=== PATIENT | female | born 1940 | race Caucasian/White ===

== ENCOUNTER 2021-01-27 10:31 | Outpatient (REF) | payer MEDICARE, BC, SELFPAY ==
--- NOTE | 2021-01-27 12:22 | MHC.AU.MED ---
Medical Clearance for Hearing Instrumentation Date: 01/27/21 Patient Name: PETER MARIE Date of : 1940 Primary Care Provider: Referring Provider: Shakir Rapp MD We have seen your patient on 01/27/21 and have determined that they are a candidate for amplification (See accompanying report). Specifically, they would benefit from: Hearing aid use in both ears There is a statute that addresses Medical Evaluation Requirements prior to fitting a patient with a hearing aid. According to [place] statute 265 CMR:6.03(1), (a) General. Except as provided in 265 CMR 6.03(1)(b), a hearing therapy director shall not sell a hearing aid unless the prospective user has presented to the hearing therapy director a written statement signed by a licensed physician that states that the patient's hearing loss has been medically evaluated and the patient may be considered a candidate for a hearing aid. The medical evaluation must have taken place within the preceding six months. Please note: Due to the [place] Statute referenced above, we cannot accept a signature other than that of a licensed physician. ELECTROLYSIS INVESTIGATOR and PA signatures cannot be accepted. I am in agreement with the above recommendation. There is no medical contraindication for hearing instrumentation. Physician Signature Date Physician Name (Printed)
--- NOTE | 2021-02-01 12:53 | MHC.AU.ANO ---
Adult Audiological Evaluation Date of Visit: 01/27/21 Human Resources Executive Assistant Used: Not Applicable Reason for Appointment: Audiologic evaluation due to increased hearing problems and difficulty understanding speech. Does patient feel they have a hearing loss?: Yes If Yes, Which Ear?: Both Ears When Was Hearing Difficulty First Noticed?: Approximately 3 years ago Has hearing been tested previously?: Yes Previous Hearing Test Results: [facility] - Results are not available for review Hearing Handicap Inventory: HHIE SCORE: 32 Based on HHIE score, patient has: Severe perceived hearing handicap Ear History: Ear used on the phone: Right Ear History of occupational noise exposure?: No Medical History: Medical History: Lung Embolism - October 2020 Cause unknown; Tobacco Use, Vascular Problems Medication List: Warfarin, Pravastatin, Citalapram, Trazadone Otoscopy: Right Ear: Mostly occluding cerumen Left Ear: Unremarkable Tympanometry: Tympanometry performed due to: To assess integrity of the middle ear system Right Ear: Reduced Middle Ear Compliance (Type As) Left Ear: Normal Middle Ear System (Type A) Otoacoustic Emissions Right Ear Results: Not performed at today's visit. Left Ear Results: Not performed at today's visit. Hearing Evaluation: Transducer(s) Used: Insert Earphones Bone Conduction Method: Conventional Audiometry Stimuli Used: Pure Tones Right Ear: Description of Hearing: Borderline normal low frequency, sloping to moderately-severe high frequency sensorineural hearing loss Left Ear: Description of Hearing: Mild low frequency, sloping to moderately-severe high frequency sensorineural hearing loss Speech Recognition Threshold (SRT): Method Used: Monitored Live Voice Stimuli Used: Spondee Words Right Ear: 25 dB HL Left Ear: 25 dB HL Word Discrimination: Method: Recorded Lists Word Lists Used: NU-6 Right Ear: 96% at 65 dB HL Left Ear: 76% at 65 dB HL 92% at 70 dB HL QuickSIN: Binaural Quick SIN Test: 12 dB SNR Loss which suggests Jayna experiences a moderate degree of difficulty understanding speech with increasing levels of background noise in this controlled test environment. Interpretation of Results: With this permanent moderately-severe high frequency hearing loss, Jayna is not able to hear important consonant sounds of speech which helps differentiate similar sounding words and cannot filter out background sounds. Recommendations: Follow-up with physician for cerumen removal. Trial with amplification is recommended. Medical clearance from a physician is required before fitting. Hearing Aid Evaluation has been scheduled for 02/04/2021 after cerumen removal has been completed Audiological re-evaluation in one year. Will send a reminder card. Diagnosis: Primary Diagnosis: H90.3 Bilateral Sensorineural Hearing Loss Services Performed: Comprehensive Audiological Evaluation (CPT 78381) Tympanometry (CPT 14876) Signature: Provider: Jay Latham, SHILOH-A
== END 2021-01-27 10:32 | disposition home or self-care (01) ==
LOC: HO.SH 10:31
PROVIDERS: Visit Provider Pediatrics
DX: H90.3 Sensorineural hearing loss, bilateral (principal)
CPT/HCPCS: 92557; 92567

== ENCOUNTER 2021-02-04 09:47 | Outpatient (REF) | payer SELFPAY ==
--- NOTE | 2021-02-04 13:25 | MHC.AU.HAS ---
Hearing Aid Evaluation Date of Visit: 02/04/21 M1 Armor Crewman Used: Not Applicable Historical Information: Description of Hearing: Bilateral borderline normal to mild low frequency hearing loss dropping to a moderately-severe sensorineural hearing loss with binaural Quick SIN Test indicating difficulty understanding speech in noise. Current personal amplification information, if applicable: None Summary: Discussed appropriate hearing aid styles and levels of technology noting the premium technology would likely benefit her/facilitate communication the most given the Quick SIN results. Also discussed realistic expectations and the need to wear aids every day all day for best benefit. Hearing Aid Prescription: Based on the individual?s shared listening needs, communication environments, dexterity, desire for connectivity, and personal preferences, the following prescription for amplification has been made: Right ear: Public Relations Sales Marketing: PhonBirst Model: Melodigrameo P 90-R Battery Size: Rechargeable Color: Silver Mcrae Internal Communications Manager: #2 Medium Type of Dome: Open or Vented Left ear: Left ear prescription to be same as Right Hearing Aid above: Public Relations Sales Marketing: Phonak Model: Audeo P 90-R Battery Size: Rechargeable Color: Silver Mcrae Internal Communications Manager: #2 Medium Type of Dome: Open or Vented Accessories/Assistive Technology Recommended: PROMO Partner [facility] Plan of Care: Patient wishes to purchase hearing aids as prescribed Action Taken/Action Needed: Medical Clearance received from PCP Hearing Fitting to be scheduled when materials arrive Primary Diagnosis: H90.3 Bilateral Sensorineural Hearing Loss Signature: Provider: Jay Latham, CCC-A
== END 2021-02-04 09:48 | disposition home or self-care (01) ==
LOC: HO.HAP 09:47
PROVIDERS: Visit Provider Pediatrics
DX: Z46.1 Encounter for fitting and adjustment of hearing aid (principal); H90.3 Sensorineural hearing loss, bilateral
CPT/HCPCS: 92591

== ENCOUNTER 2021-02-21 09:47 | Outpatient (REF) | payer SELFPAY | END 2021-02-21 09:48 | disposition home or self-care (01) | LOC: HO.HAP 09:47 | PROVIDERS: Visit Provider Pediatrics | DX: Z46.1 Encounter for fitting and adjustment of hearing aid (principal); H90.3 Sensorineural hearing loss, bilateral | CPT/HCPCS: V5261; V5299 ==

== ENCOUNTER 2021-03-15 11:28 | Outpatient (REF) | payer SELFPAY | END 2021-03-15 11:29 | disposition home or self-care (01) | LOC: HO.HAP 11:28 | PROVIDERS: Visit Provider Pediatrics | DX: Z13.89 Encounter for screening for other disorder (principal) ==

== ENCOUNTER 2022-03-08 14:16 | Outpatient (REF) | payer MEDICARE, BC, SELFPAY ==
--- NOTE | 2022-04-11 08:45 | MHC.AU.AHA ---
Adult Audiological Evaluation Date of Visit: 03/08/22 Fire Observer Used: Not Applicable Reason for Appointment: Audiologic re-evaluation to determine possible change in hearing ability. Jayna has a history of bilateral hearing loss and uses binaural hearing aids. Previous Hearing Test Results: 01/27/2021 [facility] Borderline normal to mild hearing loss thresholds at 250 and 500 Hz, dropping to a moderately-severe high frequency sensorineural hearing loss bilaterally with 96% speech understanding for the right ear and 76% for the left ear. Medical History: Medical History: Tobacco Use, Vascular Problems, Lung Embolism - October 2020 Cause unknown Medication List: Warfarin, Pravastatin, Citalapram, Trazadone, Hydrochlorothyazide, Diphenoxylate, Amlodipine Hearing Instrument History- Right Ear: Distributing Clerk: Jaunt Model: IXI-Playeo P 90-R Serial Number: [id number] Battery Size: Rechargeable Repair Warranty: 05/08/2024 Dispensed By: [facility] Date of Fittin02/21/2021 Hearing Instrument History- Left Ear: Distributing Clerk: [employer]ak Model: IXI-Playeo P 90-R Serial Number: [id number] Battery Size: Rechargeable Warranty: 05/08/2024 Dispensed By: [facility] Date of Fittin02/21/2021 Otoscopy: Right Ear: Unremarkable Left Ear: Unremarkable Tympanometry: Tympanometry performed due to: Did not test as previous test indicated normal middle ear function Hearing Evaluation: Transducer(s) Used: Insert Earphones Method: Conventional Audiometry Stimuli Used: Pure Tones Right Ear: Description of Hearing: Borderline normal hearing levels at 250 and 500 Hz, sloping to a moderately-severe high frequency sensorineural hearing loss Left Ear: Description of Hearing: Mild sloping to severe sensorineural hearing loss Speech Recognition Threshold (SRT): Method Used: Monitored Live Voice Stimuli Used: Spondee Words Right Ear: 25 dB HL Left Ear: 30 dB HL Word Discrimination: Method: Recorded Lists Word Lists Used: NU-6 Right Ear: 88% at 65 dB HL 92% at 70 dB HL Left Ear: 72% at 70 dB HL 84% at 75 dB HL Comparison: Compared to most recent evaluation: A slight decrease in hearing thresholds are noted for both ears. Recommendations: Hearing aid maintenance performed today. Hearing aid(s) reprogrammed with updated test results. Audiological re-evaluation in one year. Will send a reminder card. Diagnosis: Primary Diagnosis: H90.3 Bilateral Sensorineural Hearing Loss Services Performed: Pure Tone- Air (CPT 86527) Speech Audiometry Threshold, with Speech Recognition (CPT 47176) Signature: Provider: Jya Latham, CCC-A
== END 2022-03-08 14:17 | disposition home or self-care (01) ==
LOC: HO.SH 14:16
PROVIDERS: Visit Provider Pediatrics
DX: Z01.118 Encounter for examination of ears and hearing with other abnormal findings (principal); H90.3 Sensorineural hearing loss, bilateral
CPT/HCPCS: 92552; 92556

== ENCOUNTER 2023-10-08 13:20 | Outpatient (REF) | payer SELFPAY ==
--- NOTE | 2023-10-09 08:18 | MHC.AU.HA3 ---
Hearing Instrument Follow-Up- Binaural Date of Visit: 10/08/23 Right Ear: Cristopher, Model, Color, Serial Number: [id number] Health Education Aide Repair Warranty: 05/08/2024 Health Education Aide Loss and Damage Warranty: [facility] Service Plan: Battery Size: Rechargeable Development Spec/Slim Tube: #2 Medium 5.0 Earmold/Dome/CShell/SlimTip: Type of Wax Guard: Cerustop Dispensed By: [facility] Date of Fittin02/21/2021 Left Ear: Make, Model, Color, Serial Number: [id number] Health Education Aide Repair Warranty: 05/08/2024 Health Education Aide Loss and Damage Warranty: [facility] Service Plan: Battery Size: Rechargeable Development Spec/Slim Tube: #2 Medium 5.0 Earmold/Dome/CShell/SlimTip: Type of Wax Guard: Cerustop Dispensed By: [facility] Date of Fittin02/21/2021 Follow-Up Summary: Jayna reports her right aid is not charging as of this morning. The light does not turn on when it goes into either side of the lead mechanic, will not charge in our stock lead mechanic either. Reset with long press & hold, charging fine after. Cleaned both aids and changed to 5.0 receivers as she struggles with CeruShield. Listening check ok. Dispensed 10 domes. Recommendations: Recommendations: Hearing instrument follow-up or maintenance as needed. Diagnosis Code(s): Primary Diagnosis: H90.3 Bilateral Sensorineural Hearing Loss Signature: Provider: Jay Bonilla, [facility]
== END 2023-10-08 13:21 | disposition home or self-care (01) ==
LOC: HO.HAP 13:20
PROVIDERS: Visit Provider Pediatrics
DX: Z46.1 Encounter for fitting and adjustment of hearing aid (principal); H90.3 Sensorineural hearing loss, bilateral
CPT/HCPCS: V5267

== ENCOUNTER 2024-11-10 12:44 | Outpatient (REF) | payer MEDICARE, BC, SELFPAY ==
--- OUTSIDE RECORDS SUMMARY | 2024-11-10 14:51 | XMS_ITS | Continuity of Care Document ---
Author Organization [facility] Address [address] [place] [address]- Care Team Providers Care Decorating Machine Tender Name Role Phone Shakir Rapp MD Primary Care Physician [phone] [id number] Date(s): 08/12/24 - 10/15/[address] [address] Discharge Disposition: A-D/C Home Attending Physician: Lloyd Shah MD Admitting Physician: Lloyd Shah MD Referring Physician: Shakir Rapp MD Encounter Type: Disch Recurring OP Allergies, Adverse Reactions, Alerts Substance Criticality Severity Reaction Reaction Severity Status Adhesive Bandage blisters Act irma sulfa drugs insomnia tching Active Medications amLODIPine 5 mg oral tablet 5 mg, 1, tablet, By Mouth, Daily, # 90 tablet, Refills 0, Maintenance, 08/15/24 12:16:00 PM EST, Partial fill upon patient request if the prescription is for a schedule II opioid drug. Start Date: 08/15/24 Status: Ordered Quantity: 90.0 Unit: tablet Repeat number: 1 citalopram 10 mg oral tablet 10 mg, 1, tablet, By Mouth, Daily in AM, # 30 tablet, Refills 0, Maintenance, 06/25/18 10:50:57 AM EDT Start Date: 06/25/18 Status: Ordered Quantity: 30.0 Unit: tablet Repeat number: 1 hydroCHLOROthiazide 12.5 mg oral capsule 1 capsule = 12.5 mg, By Mouth, Daily, # 30 capsule, 0 Refills, Maintenance, 08/15/24 12:16:00 PM EST, Capsule, Partial fill upon patient request if the prescription is for a schedule II opioid drug. Start Date: 08/15/24 Status: Ordered Quantity: 30.0 Unit: capsule Repeat number: 1 omeprazole 20 mg oral delayed release tablet 1 tablet = 20 mg, By Mouth, Daily, before a meal, # 90 tablet, 0 Refills, Maintenance, 08/15/24 12:15:00 PM EST, EC Tablet, Partial fill upon patient request if the prescription is for a schedule II opioid drug. Start Date: 08/15/24 Status: Ordered Quantity: 90.0 Unit: tablet Repeat number: 1 pravastatin 40 mg oral tablet 1 tablet = 40 mg, By Mouth, Daily in AM, # 30 tablet, 0 Refills, Maintenance, 06/25/18 10:49:35 AM EDT, Tablet Start Date: 06/25/18 Status: Ordered Quantity: 30.0 Unit: tablet Repeat number: 1 PreserVision 2 times a day, 0 Refills, Maintenance, 08/15/24 12:16:00 PM EST, Partial fill upon patient request if the prescription is for a schedule II opioid drug. Start Date: 08/15/24 Status: Ordered Repeat number: 1 traZODone 50 mg oral tablet 50 mg, 1, tablet, By Mouth, Daily at bedtime, # 30 tablet, Refills 0, Maintenance, 06/25/18 10:50:39 AM EDT Start Date: 06/25/18 Status: Ordered Quantity: 30.0 Unit: tablet Repeat number: 1 warfarin 2.5 mg oral tablet 1 tablet = 2.5 mg, By Mouth, Daily, # 21 tablet, 0 Refills, Maintenance, 10/13/20 9:00:00 AM EST, Tablet, [facility], Partial fill upon patient request if the prescription is for a schedule II opioid drug., 167, cm, 10/12/20 7:57:00 EST, Height, 90, kg, 10/10/20 15:56:00 EST, Dry Weight Start Date: 10/13/20 Stop Date: 11/03/20 Status: Ordered Quantity: 21.0 Unit: tablet Repeat number: 1 warfarin 5 mg oral tablet 1 tablet = 5 mg, By Mouth, Daily, # 90 tablet, 0 Refills, Maintenance, 08/15/24 12:15:00 PM EST, Tablet, Partial fill upon patient request if the prescription is for a schedule II opioid drug. Start Date: 08/15/24 Status: Ordered Quantity: 90.0 Unit: tablet Repeat number: 1 Vital Signs Most recent to oldest [Reference Range]: 1 Height 167 cm (08/15/24 10:32 AM) Weight 88.9 kg (08/15/24 10:32 AM) Oxygen Saturation [94-100 %] 99 % (08/15/24 10:32 AM) Pulse Rate [55-90 bpm] 60 bpm (08/15/24 10:32 AM) Body Mass Index [18.5-24.99 kg/m2] 31.88 kg/m2 *>HHI* (08/15/24 10:32 AM) Blood Pressure [90-138/55-84 mm Hg] 131/ 70mm Hg (08/15/24 10:32 AM) Temperature [96.8-100.4 DegF] 98.0 DegF (08/15/24 10:32 AM) Mode of Delivery (Oxygen) Room air (08/15/24 10:32 AM) Blood pressure sites Arm, left (08/15/24 10:32 AM) Temperature Route Oral (08/15/24 10:32 AM) Dry Weight 88.9 kg (08/15/24 10:32 AM) Weight Obtained Via Standing scale (08/15/24 10:32 AM) Dry Weight Obtained Via Standing scale (08/15/24 10:32 AM) Social History Social History Type Response Tobacco Use: Former smoker.. Sex Sex Representation Female (finding) Patient Care team information Care Team Personnel Name: Fina Regalado RN Position: [facility] RN Member Role: Primary Care Nurse Name: Shakir Rapp MD Position: Reference Physician Member Role: PCP Address: [address] [address]- [employer]: Name: Lloyd Shah MD Position: [facility] Physician - Oncology Med Service: Hematology & Oncology Member Role: Admitting Physician Address: [address] [facility] [place], [place] [address] Telecom: Care Team Related Persons Name: VALE MARIE Name: APARNA MARIE Name: NELSON WARD Insurance Providers Guarantor name: PETER MARIE [facility] Information #: 1 Payer: MEDICARE PART B OUTPT Member Number: [id number] Policy Number: NA Group Number: [id number] Health Plan Information #: 2 Payer: MEDEX Member Number: [id number] Policy Number: NA Group Number: [id number]
== END 2024-11-10 12:45 | disposition home or self-care (01) ==
LOC: HO.SH 12:44
PROVIDERS: Visit Provider Pediatrics
DX: Z01.118 Encounter for examination of ears and hearing with other abnormal findings (principal); H90.3 Sensorineural hearing loss, bilateral
CPT/HCPCS: 92552; 92556

== ENCOUNTER 2024-11-10 13:38 | Outpatient (REF) | payer SELFPAY ==
--- OUTSIDE RECORDS SUMMARY | 2024-11-10 16:07 | XMS_ITS | Data Portability ---
Author Organization [facility], Main Office Address [address] [place] [address] Care Team Providers Care Harp Maker Name Role Phone SHAKIR VANESSA Primary Care Provider [phone] CARMELO CLEMONS Technical Inspector EAMON AL Shower Attendant ISABEL GURROLA Orthopedic Surgeon VANNESSA PAL Orthopedic Surgeon [phone] [facility] Gas Meter Installer Helper [facility] Pulmonologis t SARAH TUCKER Hematology/Oncology LEANDRA BOSWELL Hogshead Roller [facility] Vice Chair Assessment Encounter Date Assessment Date Assessment LastModified by Organization Details LastModified Time 02/05/2024 02/05/2024 This service was provided using telemedicine. Patient consented to video & audio visit Patient was located in the [facility]. Provider was located in the office. No other persons participated in the telemedicine visit except for the patient unless otherwise indicated here. {{}} Total time of visit was 9 minutes. [email or web address] Not available 02/05/2024 15:12:16 05/26/2024 05/26/2024 This service was provided using telemedicine. Patient consented to telephone visit Patient was located in the [facility]. Provider was located in the office. No other persons participated in the telemedicine visit except for the patient unless otherwise indicated here. {{}} Total time of visit was 27 minutes. Not available 05/26/2024 15:07:36 Plan of Treatment Reminders Order Date Submit Date Provider Last Modified By Organization Details Last Modified Time Details Appointments FOLLOW UP 2024 10:00A M Shakir Vanessa MD Not available Not available Not available Lab magnesiu m, serum or plasma 2024 025 [email or web address] [facility] (Centralized Electronic Ordering - All Locations), Patient Can Go To The Location Of Their Choice, 10/28/2024 07:21:45 BMP, serum or plasma 2024 025 [email or web address] [facility] (Centralized [facility] Ordering - All Locations), Patient Can Go To The Location Of Their Choice, 10/28/2024 07:21:46 CBC w/ auto diff 2024 025 [email or web address] [facility] (Centralized Electronic Ordering - All Locations), Patient Can Go To The Location Of Their Choice, 10/28/2024 07:21:46 CMP, serum or plasma 2023 024 BRYCE [facility] (Centralized Electronic Ordering - All Locations), Patient Can Go To The Location Of Their Choice, 09/16/2024 06:07:04 CBC w/ auto diff 2023 024 BRYCE [facility] ([facility]ized Electronic Ordering - All Locations), Patient Can Go To The Location Of Their Choice, 09/16/2024 06:07:03 urinalys is, complete 2023 024 BRYCE [facility] ([facility]ized Electronic Ordering - All Locations), Patient Can Go To The Location Of Their Choice, 09/16/2024 06:07:05 lipid panel, serum 2023 024 BRYCE [facility] ([facility]ized Electronic Ordering - All Locations), Patient Can Go To The Location Of Their Choice, 09/16/2024 06:07:05 urinalys is complete , reflex culture 2023 024 BRYCE [facility] ([facility]ized Electronic Ordering - All Locations), Patient Can Go To The Location Of Their Choice, 02/06/2024 18:05:57 CBC w/ auto diff 2023 024 BRYCE [facility] ([facility]ized [facility] Ordering - All Locations), Patient Can Go To The Location Of Their Choice, [id number] 05/01/2024 06:08:25 CMP, serum or plasma 2023 024 BRYCE [facility] (Centralized Electronic Ordering - All Locations), Patient Can Go To The Location Of Their Choice, [id number] 05/01/2024 06:08:26 Referral audiolog ist referral - for follow up on senorine ural hearing loss 2024 025 [facility] Aaron [facility], [address] [place] [address] [place], [address], 10/06/2024 12:10:40 nutritio nist/ titian referral 2024 025 [email or web address] Not available 10/06/2024 11:14:10 nutritio nist/ titian referral 2023 024 Not available 05/26/2024 15:49:47 Procedures None recorded . Surgeries None recorded . Imaging MAMMO, screenin g, bilatera l - Perform Diagnost ic Mammogra m and Breast Ultrasou nd if needed / Perform Ultrasou nd Guided Aspirati on and/or Breast Biopsy if warrante d 2024 025 [email or web address] [facility], [address] [place] [address], [id number], 10/03/2024 11:04:02 Medication Orders pravasta tin 80 mg tablet 2024 025 BRYCE [facility], [address] [place] [address], [place], [address], 10/03/2024 11:00:33 magnesiu m 250 mg tablet 2024 025 BRYCE [facility], [facility] [place], [address], 10/03/2024 11:00:33 Paxlovid 150 mg-100 mg tablets in a dose pack (Renal Dose) 2023 025 [id number], [address] [place], [id number], 10/03/2024 10:25:58 trazodon e 50 mg tablet 2023 024 BRYCE [facility], [facility], [place], [address], 05/08/2024 11:25:45 Cipro 500 mg tablet 2023 024 [id number], [address] [place], [id number], 05/08/2024 10:42:45 Patient TargetsNo targets recorded. Patient Instructions Encounter Date Encounter Id Patient Instructions Last Modified By Organization Details Last Modified Time 02/05/2024 [id number] Follow up if no improvement or if symptoms worsen. [email or web address] Not available 02/05/2024 15:13:41 05/08/2024 [id number] insomnia: care instructions [email or web address] Not available 05/08/2024 11:25:43 gastroesophageal reflux disease (GERD): care instructions [email or web address] Not available 05/08/2024 11:25:43 high blood press ure: care instructions [email or web address] Not available 05/08/2024 11:25:43 learning about h igh blood pressure [email or web address] Not available 05/08/2024 11:25:42 05/26/2024 [id number] coronavirus (covid-19): care instructions Not available 05/26/2024 15:09:20 When You Want to Lose Weight: Care Instructions Not available 05/26/2024 15:09:20 Nutrition Referr al and Weight Management Follow-up Information Not available 05/26/2024 15:09:20 10/03/2024 [id number] high cholesterol : care instructions Not available 10/03/2024 11:01:39 anxiety disorder : care instructions Not available 10/03/2024 11:01:39 high blood press ure: care instructions [email or web address] Not available 10/03/2024 11:01:39 learning about h igh blood pressure [email or web address] Not available 10/03/2024 11:01:39 irritable bowel syndrome: care instructions [email or web address] Not available 10/03/2024 11:01:39 gastroesophageal reflux disease (GERD): care instructions [email or web address] Not available 10/03/2024 11:01:38 preventing falls : care instructions [email or web address] Not available 10/03/2024 11:00:30 well visit, over 65: care instructions [email or web address] Not available 10/03/2024 11:00:29 medicare prevent irma services guide( female>75yrs) [email or web address] Not available 10/03/2024 11:01:38 hearing loss: ca re instructions [email or web address] Not available 10/03/2024 11:25:51 starting a weigh t loss plan: care instructions Not available 10/03/2024 11:01:40 Reason for Referral Log Driver/dietitian Refer ral for Body mass index 25-29 - overweight Referring Physician: Tatiana Mott, Internal Medicine, Encounter Date: 05/26/2024 Log Driver/dietitian Refer ral for Body mass index 30+ - obesity Referring Physician: Shakir Vanessa [facility], Encounter Date: 10/03/2024 Vice Chair Referral for Sen sorineural hearing loss of bilateral ears for follow up on senorineural hearing loss Referring Physician: Shakir Vanessa [facility], Encounter Date: 10/03/2024 Results Created Date Observation Date Name Description Value Unit Range Abnormal Flag Note LastModifiedBy Organization Detail LastModifiedTime 12/11/19 24 2023 SHANIQUA Saldivar TISSU E FACTO R INDUC ED.IN R coagulation tissue factor induced.INR 1.8 2.000 - 3.000 low Not Available [facility] [address], [place], [address], 06/17/2024 11:48:53 12/23/19 24 12/23/2023 COAGU LATIO N TISSU E FACTO R INDUC ED.IN R coagulation tissue factor induced.INR 2.1 2.000 - 3.000 normal Not Available [facility] [address], [place], [address], 01/18/2024 16:38:48 12/30/19 24 12/30/2023 COAGU LATIO N TISSU E FACTO R INDUC ED.IN R coagulation tissue factor induced.INR 1.9 2.000 - 3.000 low Not Available [facility] [address] [facility] [address], [place], [address], 06/17/2024 11:51:22 01/06/20 24 01/06/2024 COAGU LATIO N TISSU E FACTO R INDUC ED.IN R coagulation tissue factor induced.INR 2.8 2.000 - 3.000 normal Not Available [facility] [address] [facility] [address], [place], [address], 01/18/2024 16:21:34 01/13/20 24 01/13/2024 COAGU LATIO N TISSU E FACTO R INDUC ED.IN R coagulation tissue factor induced.INR 1.2 2.000 - 3.000 low Not Available [facility] [address], [place], [address], 01/18/2024 16:22:49 01/21/20 24 01/21/2024 COAGU LATIO N TISSU E FACTO R INDUC ED.IN R coagulation tissue factor induced.INR 2.0 2.000 - 3.000 normal Not Available [facility] [employer] [employer] [address] [facility] [address], [place], [address], 06/05/2024 16:49:11 01/28/20 24 01/28/2024 COAGU LATIO N TISSU E FACTO R INDUC ED.IN R coagulation tissue factor induced.INR 1.7 2.000 - 3.000 low Not Available [facility] [employer] [address] [facility] [address], [place], [address], 06/17/2024 11:53:56 02/04/20 24 02/04/2024 COAGU LATIO N TISSU E FACTO R INDUC ED.IN R coagulation tissue factor induced.INR 2.4 2.000 - 3.000 normal Not Available [facility] [address] [facility] [address], [place], [address], 06/05/2024 16:49:17 02/05/20 24 02/06/2024 UA/M W/RFL X CULTU RE, ROUTI NE specific gravity 1.014 1.005- 1.030 Not Available [facility] ([facility]) [address] [place], [address], 02/06/2024 18:05:57 02/05/20 24 02/06/2024 UA/M W/RFL X CULTU RE, ROUTI NE pH 5.5 5.0-7. 5 Not Available [facility] ([facility]) [address] [place], [address], 02/06/2024 18:05:57 02/05/20 24 02/06/2024 UA/M W/RFL X CULTU RE, ROUTI NE urine-color YELLOW yellow Not Available [facility] ([facility]) [address] [place], [address], 02/06/2024 18:05:57 02/05/20 24 02/06/2024 UA/M W/RFL X CULTU RE, ROUTI NE appearance TURBID clear abnormal Not Available [facility] ([facility]) [address] [place], [address], 02/06/2024 18:05:57 02/05/20 24 02/06/2024 UA/M W/RFL X CULTU RE, ROUTI NE WBC esterase 3+ negati ve abnormal Not Available [facility] ([facility]) [address] [facility], [place], [address], 02/06/2024 18:05:57 02/05/20 24 02/06/2024 UA/M W/RFL X CULTU RE, ROUTI NE protein 2+ negati ve/tra ce abnormal Not Available [facility] ([facility]) [address] [facility], [place], [address], 02/06/2024 18:05:57 02/05/20 24 02/06/2024 UA/M W/RFL X CULTU RE, ROUTI NE glucose NEGATI VE negati ve Not Available [facility] ([facility]) [address] [facility], [place], [address], 02/06/2024 18:05:57 02/05/20 24 02/06/2024 UA/M W/RFL X CULTU RE, ROUTI NE ketones NEGATI VE negati ve Not Available [facility] ([facility]) [address] [facility], [place], [address], 02/06/2024 18:05:57 02/05/20 24 02/06/2024 UA/M W/RFL X CULTU RE, ROUTI NE occult blood 3+ negati ve abnormal Not Available [facility] ([facility]) [address] [facility], [place], [address], 02/06/2024 18:05:57 02/05/20 24 02/06/2024 UA/M W/RFL X CULTU RE, ROUTI NE bilirubin NEGATI VE negati ve Not Available [facility] ([facility]) [address] [place], [address], 02/06/2024 18:05:57 02/05/20 24 02/06/2024 UA/M W/RFL X CULTU RE, ROUTI NE urobilinogen ,semi-qn 0.2 mg/dL 0.2-1. 0 Not Available [facility] ([facility]) [address] [facility], [place], [address], 02/06/2024 18:05:57 02/05/20 24 02/06/2024 UA/M W/RFL X CULTU RE, ROUTI NE nitrite, urine POSITI VE negati ve abnormal Not Available [facility] ([facility]) [address] [facility], [place], [address], 02/06/2024 18:05:57 02/05/20 24 02/06/2024 UA/M W/RFL X CULTU RE, ROUTI NE microscopic examination SEE BELOW: Micro scopi c was indic ated and was perfo rmed. Not Available [facility] ([facility]) [address] [facility], [place], [address], 02/06/2024 18:05:57 02/05/20 24 02/06/2024 UA/M W/RFL X CULTU RE, ROUTI NE WBC >30 /hpf 0 - 5 abnormal Not Available [facility] ([facility]) [address] [facility], [place], [address], 02/06/2024 18:05:57 02/05/20 24 02/06/2024 UA/M W/RFL X CULTU RE, ROUTI NE RBC 11-30 /hpf 0 - 2 abnormal Not Available [facility] ([facility]) [address] [facility], [place], [address], 02/06/2024 18:05:57 02/05/20 24 02/06/2024 UA/M W/RFL X CULTU RE, ROUTI NE epithelial cells (non renal) NONE SEEN /hpf 0 - 10 Not Available [facility] ([facility]) [address] [place], [address], 02/06/2024 18:05:57 02/05/20 24 02/06/2024 UA/M W/RFL X CULTU RE, ROUTI NE epithelial cells (renal) GOODWILL REPRESENTATIVE Not Available [facility] ([facility]) [address], [place], [address], 02/06/2024 18:05:57 02/05/20 24 02/06/2024 UA/M W/RFL X CULTU RE, ROUTI NE casts NONE SEEN /lpf none seen Not Available [facility] ([facility]) [address], [place], [address], 02/06/2024 18:05:57 02/05/20 24 02/06/2024 UA/M W/RFL X CULTU RE, ROUTI NE cast type GOODWILL REPRESENTATIVE Not Available [facility] ([facility]) [address] [facility], [place], [address], 02/06/2024 18:05:57 02/05/20 24 02/06/2024 UA/M W/RFL X CULTU RE, ROUTI NE crystals GOODWILL REPRESENTATIVE Not Available [facility] ([facility]) [address] [facility], [place], [address], 02/06/2024 18:05:57 02/05/20 24 02/06/2024 UA/M W/RFL X CULTU RE, ROUTI NE crystal type GOODWILL REPRESENTATIVE Not Available [facility] ([facility]) [address] [facility], [place], [address], 02/06/2024 18:05:57 02/05/20 24 02/06/2024 UA/M W/RFL X CULTU RE, ROUTI NE mucus threads GOODWILL REPRESENTATIVE Not Available [facility] ([facility]) [address] [facility], [place], [address], 02/06/2024 18:05:57 02/05/20 24 02/06/2024 UA/M W/RFL X CULTU RE, ROUTI NE bacteria MANY none seen/f ew abnormal Not Available [facility] ([facility]) [address] [facility], [place], [address], 02/06/2024 18:05:57 02/05/20 24 02/06/2024 UA/M W/RFL X CULTU RE, ROUTI NE yeast GOODWILL REPRESENTATIVE Not Available [facility] ([facility]) [address] [facility], [place], [address], 02/06/2024 18:05:57 02/05/20 24 02/06/2024 UA/M W/RFL X CULTU RE, ROUTI NE trichomonas GOODWILL REPRESENTATIVE Not Available [facility] ([facility]) [address] [facility], [place], [address], 02/06/2024 18:05:57 02/05/20 24 02/06/2024 UA/M W/RFL X CULTU RE, ROUTI NE comment GOODWILL REPRESENTATIVE Not Available [facility] ([facility]) [address] [facility], [place], [address], 02/06/2024 18:05:57 02/05/20 24 02/06/2024 UA/M W/RFL X CULTU RE, ROUTI NE microscopic examination GOODWILL REPRESENTATIVE Not Available [facility] [address] [facility], [place], [address], 02/06/2024 18:05:57 02/05/20 24 02/06/2024 UA/M W/RFL X CULTU RE, ROUTI NE urinalysis reflex COMMEN T This speci men has refle xed to a Urine Cultu re. Not Available [facility] ([facility]) [address] [facility], [place], [address], 02/06/2024 18:05:57 02/05/20 24 02/06/2024 UA/M W/RFL X CULTU RE, ROUTI NE urine culture, routine TNP Test not perfo rmed. No urine speci men was recei wisam for cultu re. Not Available [facility] ([facility]) [address] [facility], [place], [address], 02/06/2024 18:05:57 02/05/20 24 02/06/[address] PROBL EM request problem TNP Test not perfo rmed. No urine speci men was recei wisam for cultu re. TEST: [id number] Urine Cultu re, Routi ne Panel : [id number] Not Available [facility] ([facility]) [address] [facility], [place], [address], 02/06/2024 18:05:58 02/11/20 24 02/11/2024 COAGU LATIO N TISSU E FACTO R INDUC ED.IN R coagulation tissue factor induced.INR 2.8 2.000 - 3.000 normal Not Available [facility] [address] [facility] [address], [place], [address], 06/05/2024 16:49:23 02/18/20 24 02/18/2024 COAGU LATIO N TISSU E FACTO R INDUC ED.IN R coagulation tissue factor induced.INR 2.2 2.000 - 3.000 normal Not Available [facility] [address] [facility] [address], [place], [address], 06/05/2024 16:49:22 02/25/20 24 02/25/2024 COAGU LATIO N TISSU E FACTO R INDUC ED.IN R coagulation tissue factor induced.INR 2.1 2.000 - 3.000 normal Not Available [facility] [address] [facility] [address], [place], [address], 06/05/2024 16:49:34 03/03/20 24 03/03/2024 COAGU LATIO N TISSU E FACTO R INDUC ED.IN R coagulation tissue factor induced.INR 1.7 2.000 - 3.000 low Not Available [facility] [address] [facility] [address], [place], [address], 10/17/2024 16:15:52 03/10/20 24 03/10/2024 COAGU LATIO N TISSU E FACTO R INDUC ED.IN R coagulation tissue factor induced.INR 2.2 2.000 - 3.000 normal Not Available [facility] [address] [facility] [address], [place], [address], 05/23/2024 17:11:43 03/17/20 24 03/17/2024 COAGU LATIO N TISSU E FACTO R INDUC ED.IN R coagulation tissue factor induced.INR 1.8 2.000 - 3.000 low Not Available [facility] [address] [facility] [address], [place], [address], 10/17/2024 16:18:14 03/31/20 24 03/31/2024 COAGU LATIO N TISSU E FACTO R INDUC ED.IN R coagulation tissue factor induced.INR 3.2 2.000 - 3.000 high Not Available [facility] [address] [facility] [address], [place], [address], 10/17/2024 16:20:44 04/07/20 24 04/07/2024 COAGU LATIO N TISSU E FACTO R INDUC ED.IN R coagulation tissue factor induced.INR 2.4 2.000 - 3.000 normal Not Available [facility] [address] [facility] [address], [place], [address], 05/23/2024 17:11:49 04/14/20 24 04/14/2024 COAGU LATIO N TISSU E FACTO R INDUC ED.IN R coagulation tissue factor induced.INR 1.9 2.000 - 3.000 low Not Available [facility] [address] [facility] [address], [place], [address], 10/17/2024 16:20:50 04/28/20 24 04/28/2024 COAGU LATIO N TISSU E FACTO R INDUC ED.IN R coagulation tissue factor induced.INR 2.1 2.000 - 3.000 normal Not Available [facility] [address] [address], [place], [address], 05/23/2024 17:12:16 04/30/20 24 05/01/2024 CBC WITH DIFFE RENTI AL/PL ATELE T WBC 5.8 x10e3 /uL 3.4-10 .8 normal Not Available [facility] ([facility]) [address] [facility], [place], [address], 05/01/2024 06:08:25 04/30/20 24 05/01/2024 CBC WITH DIFFE RENTI AL/PL ATELE T RBC 4.10 x10e6 /uL 3.77-5 .28 normal Not Available [facility] ([facility]) [address] [facility], [place], [address], 05/01/2024 06:08:25 04/30/20 24 05/01/2024 CBC WITH DIFFE RENTI AL/PL ATELE T hemoglobin 12.8 g/dL 11.1-1 5.9 normal Not Available [facility] ([facility]) [address] [facility], [place], [address], 05/01/2024 06:08:25 04/30/20 24 05/01/2024 CBC WITH DIFFE RENTI AL/PL ATELE T hematocrit 40.3 % 34.0-4 6.6 normal Not Available [facility] ([facility]) [address] [facility], [place], [address], 05/01/2024 06:08:25 04/30/20 24 05/01/2024 CBC WITH DIFFE RENTI AL/PL ATELE T MCV 98 fL 79-97 above high normal Not Available [facility] ([facility]) [address] [place], [address], 05/01/2024 06:08:25 04/30/20 24 05/01/2024 CBC WITH DIFFE RENTI AL/PL ATELE T MCH 31.2 pg 26.6-3 3.0 normal Not Available [facility] ([facility]) [address] [facility], [place], [address], 05/01/2024 06:08:25 04/30/20 24 05/01/2024 CBC WITH DIFFE RENTI AL/PL ATELE T MCHC 31.8 g/dL 31.5-3 5.7 normal Not Available [facility] ([facility]) [address] [facility], [place], [address], 05/01/2024 06:08:25 04/30/20 24 05/01/2024 CBC WITH DIFFE RENTI AL/PL ATELE T RDW 12.7 % 11.7-1 5.4 Not Available [facility] ([facility]) [address] [facility], [place], [address], 05/01/2024 06:08:25 04/30/20 24 05/01/2024 CBC WITH DIFFE RENTI AL/PL ATELE T platelets 198 x10e3 /uL 150-45 0 normal Not Available [facility] ([facility]) [address] [facility], [place], [address], 05/01/2024 06:08:25 04/30/20 24 05/01/2024 CBC WITH DIFFE RENTI AL/PL ATELE T neutrophils 54 % not estab. normal Not Available [facility] ([facility]) [address] [facility], [place], [address], 05/01/2024 06:08:25 04/30/20 24 05/01/2024 CBC WITH DIFFE RENTI AL/PL ATELE T lymphs 35 % not estab. normal Not Available [facility] ([facility]) [address] [facility], [place], [address], 05/01/2024 06:08:25 04/30/20 24 05/01/2024 CBC WITH DIFFE RENTI AL/PL ATELE T monocytes 9 % not estab. normal Not Available [facility] ([facility]) [address] [facility], [place], [address], 05/01/2024 06:08:25 04/30/20 24 05/01/2024 CBC WITH DIFFE RENTI AL/PL ATELE T eos 1 % not estab. normal Not Available [facility] ([facility]) [address] [place], [address], 05/01/2024 06:08:25 04/30/20 24 05/01/2024 CBC WITH DIFFE RENTI AL/PL ATELE T basos 1 % not estab. normal Not Available [facility] ([facility]) [address] [place], [address], 05/01/2024 06:08:25 04/30/20 24 05/01/2024 CBC WITH DIFFE RENTI AL/PL ATELE T immature cells GOODWILL REPRESENTATIVE Not Available [facility] ([facility]) [address] [place], [address], 05/01/2024 06:08:25 04/30/20 24 05/01/2024 CBC WITH DIFFE RENTI AL/PL ATELE T neutrophils (absolute) 3.1 x10e3 /uL 1.4-7. 0 normal Not Available [facility] ([facility]) [address] [place], [address], 05/01/2024 06:08:25 04/30/20 24 05/01/2024 CBC WITH DIFFE RENTI AL/PL ATELE T lymphs (absolute) 2.0 x10e3 /uL 0.7-3. 1 normal Not Available [facility] ([facility]) [address] [place], [address], 05/01/2024 06:08:25 04/30/20 24 05/01/2024 CBC WITH DIFFE RENTI AL/PL ATELE T monocytes(ab solute) 0.5 x10e3 /uL 0.1-0. 9 normal Not Available [facility] ([facility]) [address] [place], [address], 05/01/2024 06:08:25 04/30/20 24 05/01/2024 CBC WITH DIFFE RENTI AL/PL ATELE T eos (absolute) 0.1 x10e3 /uL 0.0-0. 4 normal Not Available [facility] ([facility]) [address] [facility], [place], [address], 05/01/2024 06:08:25 04/30/20 24 05/01/2024 CBC WITH DIFFE RENTI AL/PL ATELE T baso (absolute) 0.0 x10e3 /uL 0.0-0. 2 normal Not Available [facility] ([facility]) [address] [facility], [place], [address], 05/01/2024 06:08:25 04/30/20 24 05/01/2024 CBC WITH DIFFE RENTI AL/PL ATELE T immature granulocytes 0 % not estab. Not Available [facility] ([facility]) [address] [facility], [place], [address], 05/01/2024 06:08:25 04/30/20 24 05/01/2024 CBC WITH DIFFE RENTI AL/PL ATELE T immature grans (abs) 0.0 x10e3 /uL 0.0-0. 1 Not Available [facility] ([facility]) [address] [facility], [place], [address], 05/01/2024 06:08:25 04/30/20 24 05/01/2024 CBC WITH DIFFE RENTI AL/PL ATELE T NRBC GOODWILL REPRESENTATIVE Not Available [facility] ([facility]) [address] [facility], [place], [address], 05/01/2024 06:08:25 04/30/20 24 05/01/2024 CBC WITH DIFFE RENTI AL/PL ATELE T hematology comments: GOODWILL REPRESENTATIVE Not Available [facility] Lab) [address] [facility], [place], [address], 05/01/2024 06:08:25 04/30/20 24 05/01/2024 COMP. METAB OLIC PANEL (14) glucose 87 mg/dL 70-99 normal Not Available [facility] ([facility]) [address] [place], [address], 05/01/2024 06:08:26 04/30/20 24 05/01/2024 COMP. METAB OLIC PANEL (14) BUN 24 mg/dL 8-27 normal Not Available [facility] ([facility]) [address] [place], [address], 05/01/2024 06:08:26 04/30/20 24 05/01/2024 COMP. METAB OLIC PANEL (14) creatinine 0.81 mg/dL 0.57-1 .00 normal Not Available [facility] ([facility]) [address] [place], [address], 05/01/2024 06:08:26 04/30/20 24 05/01/2024 COMP. METAB OLIC PANEL (14) eGFR 72 mL/mi n/1.7 3 >59 normal Not Available [facility] ([facility]) [address] [place], [address], 05/01/2024 06:08:26 04/30/20 24 05/01/2024 COMP. METAB OLIC PANEL (14) BUN/creatini ne ratio 30 12-28 above high normal Not Available [facility] ([facility]) [address] [place], [address], 05/01/2024 06:08:26 04/30/20 24 05/01/2024 COMP. METAB OLIC PANEL (14) sodium 144 mmol/ L 134-14 4 normal Not Available [facility] ([facility]) [address] [place], [address], 05/01/2024 06:08:26 04/30/20 24 05/01/2024 COMP. METAB OLIC PANEL (14) potassium 3.4 mmol/ L 3.5-5. 2 below low normal Not Available [facility] ([facility]) [address] [place], [address], 05/01/2024 06:08:26 04/30/20 24 05/01/2024 COMP. METAB OLIC PANEL (14) chloride 104 mmol/ L 96-106 normal Not Available [facility] ([facility]) [address] [place], [address], 05/01/2024 06:08:26 04/30/20 24 05/01/2024 COMP. METAB OLIC PANEL (14) carbon dioxide, total 25 mmol/ L 20-29 normal Not Available [facility] ([facility]) [address] [facility], [place], [address], 05/01/2024 06:08:26 04/30/20 24 05/01/2024 COMP. METAB OLIC PANEL (14) calcium 9.1 mg/dL 8.7-10 .3 normal Not Available [facility] ([facility]) [address] [place], [address], 05/01/2024 06:08:26 04/30/20 24 05/01/2024 COMP. METAB OLIC PANEL (14) protein, total 6.9 g/dL 6.0-8. 5 normal Not Available [facility] ([facility]) [address] [place], [address], 05/01/2024 06:08:26 04/30/20 24 05/01/2024 COMP. METAB OLIC PANEL (14) albumin 4.2 g/dL 3.7-4. 7 normal Not Available [facility] ([facility]) [address] [place], [address], 05/01/2024 06:08:26 04/30/20 24 05/01/2024 COMP. METAB OLIC PANEL (14) globulin, total 2.7 g/dL 1.5-4. 5 Not Available [facility] ([facility]) [address] [place], [address], 05/01/2024 06:08:26 04/30/20 24 05/01/2024 COMP. METAB OLIC PANEL (14) bilirubin, total 0.3 mg/dL 0.0-1. 2 normal Not Available [facility] ([facility]) [address] [place], [address], 05/01/2024 06:08:26 04/30/20 24 05/01/2024 COMP. METAB OLIC PANEL (14) alkaline phosphatase 158 IU/L 44-121 above high normal Not Available [facility] ([facility]) [address] [facility], [place], [address], 05/01/2024 06:08:26 04/30/20 24 05/01/2024 COMP. METAB OLIC PANEL (14) AST (SGOT) 21 IU/L 0-40 normal Not Available [facility] ([facility]) [address] [place], [address], 05/01/2024 06:08:26 04/30/20 24 05/01/2024 COMP. METAB OLIC PANEL (14) ALT (SGPT) 14 IU/L 0-32 normal Not Available [facility] ([facility]) [address] [place], [address], 05/01/2024 06:08:26 05/05/20 24 05/05/2024 COAGU LATIO N TISSU E FACTO R INDUC ED.IN R coagulation tissue factor induced.INR 2.6 2.000 - 3.000 normal Not Available [facility] [employer] [address] [facility] [address], [place], [address], 05/23/2024 17:12:18 05/12/20 24 05/12/2024 COAGU LATIO N TISSU E FACTO R INDUC ED.IN R coagulation tissue factor induced.INR 2.3 2.000 - 3.000 normal Not Available [facility] [employer] [address] [facility] [address], [place], [address], 05/23/2024 17:12:33 05/19/20 24 05/19/2024 COAGU LATIO N TISSU E FACTO R INDUC ED.IN R coagulation tissue factor induced.INR 2.1 2.000 - 3.000 normal Not Available [facility] [employer] [address] [facility] [address], [place], [address], 05/23/2024 17:12:39 05/26/20 24 05/26/2024 COAGU LATIO N TISSU E FACTO R INDUC ED.IN R coagulation tissue factor induced.INR 1.7 2.000 - 3.000 low Not Available [facility] [employer] [address] [facility] [address], [place], [address], 10/17/2024 16:24:33 06/02/20 24 06/02/2024 COAGU LATIO N TISSU E FACTO R INDUC ED.IN R coagulation tissue factor induced.INR 2.9 2.000 - 3.000 normal Not Available [facility] [employer] [address] [facility] [address], [place], [address], 06/05/2024 16:50:05 06/09/20 24 06/09/2024 COAGU LATIO N TISSU E FACTO R INDUC ED.IN R coagulation tissue factor induced.INR 3.3 2.000 - 3.000 high Not Available [facility] [employer] [address] [facility] [address], [place], [address], 10/17/2024 16:25:48 06/23/20 24 06/23/2024 COAGU LATIO N TISSU E FACTO R INDUC ED.IN R coagulation tissue factor induced.INR 3.1 2.000 - 3.000 high Not Available [facility] [employer] [address] [facility] [address], [place], [address], 10/17/2024 16:32:52 06/30/2006/30/2024 COAGU LATIO N TISSU E FACTO R INDUC ED.IN R coagulation tissue factor induced.INR 2.4 2.000 - 3.000 normal Not Available [facility] [employer] [address] [facility] [address], [place], [address], 10/17/2024 16:12:25 07/07/20 24 07/07/2024 COAGU LATIO N TISSU E FACTO R INDUC ED.IN R coagulation tissue factor induced.INR 3.1 2.000 - 3.000 high Not Available [facility] [employer] [employer] [address] [facility] [address], [place], [address], 10/17/2024 16:34:08 07/14/20 24 07/14/2024 COAGU LATIO N TISSU E FACTO R INDUC ED.IN R coagulation tissue factor induced.INR 2.5 2.000 - 3.000 normal Not Available [facility] [employer] [employer] [address] [facility] [address], [place], [address], 10/17/2024 16:12:30 07/21/20 24 07/21/2024 COAGU LATIO N TISSU E FACTO R INDUC ED.IN R coagulation tissue factor induced.INR 2.3 2.000 - 3.000 normal Not Available [facility] [employer] [employer] [address] [facility] [address], [place], [address], 10/17/2024 16:12:32 07/28/20 24 07/28/2024 COAGU LATIO N TISSU E FACTO R INDUC ED.IN R coagulation tissue factor induced.INR 2.7 2.000 - 3.000 normal Not Available [facility] [employer] [employer] [address] [facility] [address], [place], [address], 10/17/2024 16:12:35 08/04/20 24 08/04/2024 COAGU LATIO N TISSU E FACTO R INDUC ED.IN R coagulation tissue factor induced.INR 2.6 2.000 - 3.000 normal Not Available [facility] [employer] [address] [facility] [address], [place], [address], 10/17/2024 16:12:50 08/11/20 24 08/11/2024 COAGU LATIO N TISSU E FACTO R INDUC ED.IN R coagulation tissue factor induced.INR 3.2 2.000 - 3.000 high Not Available [facility] [employer] [address] [facility] [address], [place], [address], 10/17/2024 16:34:09 08/18/20 24 08/18/2024 COAGU LATIO N TISSU E FACTO R INDUC ED.IN R coagulation tissue factor induced.INR 3.0 2.000 - 3.000 normal Not Available [facility] [employer] [address] [facility], [place], [address], 10/17/2024 16:13:12 08/25/20 24 08/25/2024 COAGU LATIO N TISSU E FACTO R INDUC ED.IN R coagulation tissue factor induced.INR 3.6 2.000 - 3.000 high Not Available [facility] [employer] [address] [facility] [address], [place], [address], 10/17/2024 16:35:21 09/01/20 24 09/01/2024 COAGU LATIO N TISSU E FACTO R INDUC ED.IN R coagulation tissue factor induced.INR 1.6 2.000 - 3.000 low Not Available [facility] [employer] [address] [facility], [place], [address], 10/17/2024 16:35:23 09/08/20 24 09/08/2024 COAGU LATIO N TISSU E FACTO R INDUC ED.IN R coagulation tissue factor induced.INR 2.8 2.000 - 3.000 normal Not Available [facility] [employer] [address], [place], [address], 10/17/2024 16:13:40 09/15/19 25 09/15/2024 CBC WITH DIFFE RENTI AL/PL ATELE T WBC 6.5 x10e3 /uL 3.4-10 .8 normal Not Available [facility] ([facility]) [address] [place], [address], 09/16/2024 06:07:03 09/15/19 25 09/15/2024 CBC WITH DIFFE RENTI AL/PL ATELE T RBC 4.31 x10e6 /uL 3.77-5 .28 normal Not Available [facility] ([facility]) [address] [place], [address], 09/16/2024 06:07:03 09/15/19 25 09/15/2024 CBC WITH DIFFE RENTI AL/PL ATELE T hemoglobin 13.4 g/dL 11.1-1 5.9 normal Not Available [facility] ([facility]) [address] [place], [address], 09/16/2024 06:07:03 09/15/19 25 09/15/2024 CBC WITH DIFFE RENTI AL/PL ATELE T hematocrit 40.8 % 34.0-4 6.6 normal Not Available [facility] ([facility]) [address] [place], [address], 09/16/2024 06:07:03 09/15/19 25 09/15/2024 CBC WITH DIFFE RENTI AL/PL ATELE T MCV 95 fL 79-97 normal Not Available [facility] ([facility]) [address] [place], [address], 09/16/2024 06:07:03 09/15/19 25 09/15/2024 CBC WITH DIFFE RENTI AL/PL ATELE T MCH 31.1 pg 26.6-3 3.0 normal Not Available [facility] ([facility]) [address] [place], [address], 09/16/2024 06:07:03 09/15/19 25 09/15/2024 CBC WITH DIFFE RENTI AL/PL ATELE T MCHC 32.8 g/dL 31.5-3 5.7 normal Not Available [facility] ([facility]) [address] [place], [address], 09/16/2024 06:07:03 09/15/19 25 09/15/2024 CBC WITH DIFFE RENTI AL/PL ATELE T RDW 12.3 % 11.7-1 5.4 Not Available [facility] ([facility]) [address] [place], [address], 09/16/2024 06:07:03 09/15/19 25 09/15/2024 CBC WITH DIFFE RENTI AL/PL ATELE T platelets 215 x10e3 /uL 150-45 0 normal Not Available [facility] ([facility]) [address] [place], [address], 09/16/2024 06:07:03 09/15/19 25 09/15/2024 CBC WITH DIFFE RENTI AL/PL ATELE T neutrophils 62 % not estab. normal Not Available [facility] ([facility]) [address] [place], [address], 09/16/2024 06:07:03 09/15/19 25 09/15/2024 CBC WITH DIFFE RENTI AL/PL ATELE T lymphs 29 % not estab. normal Not Available [facility] ([facility]) [address] [place], [address], 09/16/2024 06:07:03 09/15/19 25 09/15/2024 CBC WITH DIFFE RENTI AL/PL ATELE T monocytes 8 % not estab. normal Not Available [facility] ([facility]) [address] [place], [address], 09/16/2024 06:07:03 09/15/19 25 09/15/2024 CBC WITH DIFFE RENTI AL/PL ATELE T eos 1 % not estab. normal Not Available [facility] ([facility]) [address] [place], [address], 09/16/2024 06:07:03 09/15/19 25 09/15/2024 CBC WITH DIFFE RENTI AL/PL ATELE T basos 0 % not estab. normal Not Available [facility] ([facility]) [address] [facility], [place], [address], 09/16/2024 06:07:03 09/15/19 25 09/15/2024 CBC WITH DIFFE RENTI AL/PL ATELE T immature cells GOODWILL REPRESENTATIVE Not Available [facility] ([facility]) [address] [place], [address], 09/16/2024 06:07:03 09/15/19 25 09/15/2024 CBC WITH DIFFE RENTI AL/PL ATELE T neutrophils (absolute) 4.0 x10e3 /uL 1.4-7. 0 normal Not Available [facility] ([facility]) [address] [place], [address], 09/16/2024 06:07:03 09/15/19 25 09/15/2024 CBC WITH DIFFE RENTI AL/PL ATELE T lymphs (absolute) 1.9 x10e3 /uL 0.7-3. 1 normal Not Available [facility] ([facility]) [address] [place], [address], 09/16/2024 06:07:03 09/15/19 25 09/15/2024 CBC WITH DIFFE RENTI AL/PL ATELE T monocytes(ab solute) 0.5 x10e3 /uL 0.1-0. 9 normal Not Available [facility] ([facility]) [address] [facility], [place], [address], 09/16/2024 06:07:03 09/15/19 25 09/15/2024 CBC WITH DIFFE RENTI AL/PL ATELE T eos (absolute) 0.1 x10e3 /uL 0.0-0. 4 normal Not Available [facility] ([facility]) [address] [facility], [place], [address], 09/16/2024 06:07:03 09/15/19 25 09/15/2024 CBC WITH DIFFE RENTI AL/PL ATELE T baso (absolute) 0.0 x10e3 /uL 0.0-0. 2 normal Not Available [facility] ([facility]) [address] [facility], [place], [address], 09/16/2024 06:07:03 09/15/19 25 09/15/2024 CBC WITH DIFFE RENTI AL/PL ATELE T immature granulocytes 0 % not estab. Not Available [facility] ([facility]) [address] [facility], [place], [address], 09/16/2024 06:07:03 09/15/19 25 09/15/2024 CBC WITH DIFFE RENTI AL/PL ATELE T immature grans (abs) 0.0 x10e3 /uL 0.0-0. 1 Not Available [facility] ([facility]) [address] [facility], [place], [address], 09/16/2024 06:07:03 09/15/19 25 09/15/2024 CBC WITH DIFFE RENTI AL/PL ATELE T NRBC GOODWILL REPRESENTATIVE Not Available [facility] ([facility]) [address] [facility], [place], [address], 09/16/2024 06:07:03 09/15/19 25 09/15/2024 CBC WITH DIFFE RENTI AL/PL ATELE T hematology comments: GOODWILL REPRESENTATIVE Not Available [facility] ([facility]) [address] [place], [address], 09/16/2024 06:07:03 09/15/19 25 09/15/2024 COMP. METAB OLIC PANEL (14) glucose 93 mg/dL 70-99 normal Not Available [facility] ([facility]) [address] [place], [address], 09/16/2024 06:07:04 09/15/19 25 09/15/2024 COMP. METAB OLIC PANEL (14) BUN 26 mg/dL 8-27 normal Not Available [facility] ([facility]) [address] [place], [address], 09/16/2024 06:07:04 09/15/19 25 09/15/2024 COMP. METAB OLIC PANEL (14) creatinine 0.97 mg/dL 0.57-1 .00 normal Not Available [facility] ([facility]) [address] [place], [address], 09/16/2024 06:07:04 09/15/19 25 09/15/2024 COMP. METAB OLIC PANEL (14) eGFR 58 mL/mi n/1.7 3 >59 below low normal Not Available [facility] ([facility]) [address] [place], [address], 09/16/2024 06:07:04 09/15/19 25 09/15/2024 COMP. METAB OLIC PANEL (14) BUN/creatini ne ratio 27 12-28 normal Not Available [facility] ([facility]) [address] [place], [address], 09/16/2024 06:07:04 09/15/19 25 09/15/2024 COMP. METAB OLIC PANEL (14) sodium 143 mmol/ L 134-14 4 normal Not Available [facility] ([facility]) [address] [place], [address], 09/16/2024 06:07:04 09/15/19 25 09/15/2024 COMP. METAB OLIC PANEL (14) potassium 4.1 mmol/ L 3.5-5. 2 normal Not Available [facility] ([facility]) [address] [place], [address], 09/16/2024 06:07:04 09/15/19 25 09/15/2024 COMP. METAB OLIC PANEL (14) chloride 103 mmol/ L 96-106 normal Not Available [facility] ([facility]) [address] [place], [address], 09/16/2024 06:07:04 09/15/19 25 09/15/2024 COMP. METAB OLIC PANEL (14) carbon dioxide, total 25 mmol/ L 20-29 normal Not Available [facility] ([facility]) [address] [place], [address], 09/16/2024 06:07:04 09/15/19 25 09/15/2024 COMP. METAB OLIC PANEL (14) calcium 9.2 mg/dL 8.7-10 .3 normal Not Available [facility] ([facility]) [address] [facility] [place], [address], 09/16/2024 06:07:04 09/15/19 25 09/15/2024 COMP. METAB OLIC PANEL (14) protein, total 7.0 g/dL 6.0-8. 5 normal Not Available [facility] ([facility]) [address] [place], [address], 09/16/2024 06:07:04 09/15/19 25 09/15/2024 COMP. METAB OLIC PANEL (14) albumin 4.1 g/dL 3.7-4. 7 normal Not Available [facility] ([facility]) [address] [facility] [place], [address], 09/16/2024 06:07:04 09/15/19 25 09/15/2024 COMP. METAB OLIC PANEL (14) globulin, total 2.9 g/dL 1.5-4. 5 Not Available [facility] ([facility]) [address] [place], [address], 09/16/2024 06:07:04 09/15/19 25 09/15/2024 COMP. METAB OLIC PANEL (14) bilirubin, total 0.4 mg/dL 0.0-1. 2 normal Not Available [facility] ([facility]) [address] [place], [address], 09/16/2024 06:07:04 09/15/19 25 09/15/2024 COMP. METAB OLIC PANEL (14) alkaline phosphatase 154 IU/L 44-121 above high normal Not Available [facility] ([facility]) [address] [place], [address], 09/16/2024 06:07:04 09/15/19 25 09/15/2024 COMP. METAB OLIC PANEL (14) AST (SGOT) 22 IU/L 0-40 normal Not Available [facility] ([facility]) [address] [place], [address], 09/16/2024 06:07:04 09/15/19 25 09/15/2024 COMP. METAB OLIC PANEL (14) ALT (SGPT) 15 IU/L 0-32 normal Not Available [facility] ([facility]) [address] [place], [address], 09/16/2024 06:07:04 09/15/19 25 09/16/2024 URINA LYSIS , COMPL ETE specific gravity 1.021 1.005- 1.030 normal Not Available [facility] ([facility]) [address] [place], [address], 09/16/2024 06:07:04 01/06/09/16/2024 URINA LYSIS , COMPL ETE pH 7.0 5.0-7. 5 normal Not Available [facility] ([facility]) [address] [place], [address], 09/16/2024 06:07:04 09/15/19 25 09/16/2024 URINA LYSIS , COMPL ETE urine-color YELLOW yellow Not Available [facility] ([facility]) [address] [facility], [place], [address], 09/16/2024 06:07:04 09/15/19 25 09/16/2024 URINA LYSIS , COMPL ETE appearance CLEAR clear Not Available [facility] ([facility]) [address] [place], [address], 09/16/2024 06:07:04 09/15/19 25 09/16/2024 URINA LYSIS , COMPL ETE WBC esterase NEGATI VE negati ve Not Available [facility] ([facility]) [address] [place], [address], 09/16/2024 06:07:04 09/15/19 25 09/16/2024 URINA LYSIS , COMPL ETE protein NEGATI VE negati ve/tra ce Not Available [facility] ([facility]) [address] [facility], [place], [address], 09/16/2024 06:07:04 09/15/19 25 09/16/2024 URINA LYSIS , COMPL ETE glucose NEGATI VE negati ve Not Available [facility] ([facility]) [address] [place], [address], 09/16/2024 06:07:04 09/15/19 25 09/16/2024 URINA LYSIS , COMPL ETE ketones NEGATI VE negati ve Not Available [facility] ([facility]) [address] [place], [address], 09/16/2024 06:07:04 09/15/19 25 09/16/2024 URINA LYSIS , COMPL ETE occult blood NEGATI VE negati ve Not Available [facility] ([facility]) [address] [place], [address], 09/16/2024 06:07:04 09/15/19 25 09/16/2024 URINA LYSIS , COMPL ETE bilirubin NEGATI VE negati ve Not Available [facility] ([facility]) [address] [facility], [place], [address], 09/16/2024 06:07:04 09/15/19 25 09/16/2024 URINA LYSIS , COMPL ETE urobilinogen ,semi-qn 0.2 mg/dL 0.2-1. 0 normal Not Available [facility] ([facility]) [address] [facility], [place], [address], 09/16/2024 06:07:04 09/15/19 25 09/16/2024 URINA LYSIS , COMPL ETE nitrite, urine NEGATI VE negati ve Not Available [facility] ([facility]) [address] [facility], [place], [address], 09/16/2024 06:07:04 09/15/19 25 09/16/2024 URINA LYSIS , COMPL ETE microscopic examination COMMEN T Micro scopi c follo ws if indic ated. Not Available [facility] ([facility]) [address] [place], [address], 09/16/2024 06:07:04 09/15/19 25 09/16/2024 URINA LYSIS , COMPL ETE microscopic examination SEE BELOW: Micro scopi c was indic ated and was perfo rmed. Not Available [facility] ([facility]) [address] [facility], [place], [address], 09/16/2024 06:07:04 09/15/19 25 09/16/2024 URINA LYSIS , COMPL ETE WBC 0-5 /hpf 0 - 5 Not Available [facility] ([facility]) [address] [facility], [place], [address], 09/16/2024 06:07:04 09/15/19 25 09/16/2024 URINA LYSIS , COMPL ETE RBC NONE SEEN /hpf 0 - 2 Not Available [facility] ([facility]) [address] [facility], [place], [address], 09/16/2024 06:07:04 09/15/19 25 09/16/2024 URINA LYSIS , COMPL ETE epithelial cells (non renal) 0-10 /hpf 0 - 10 Not Available [facility] ([facility]) [address] [facility], [place], [address], 09/16/2024 06:07:04 09/15/19 25 09/16/2024 URINA LYSIS , COMPL ETE epithelial cells (renal) GOODWILL REPRESENTATIVE Not Available [facility] ([facility]) [address] [facility], [place], [address], 09/16/2024 06:07:04 09/15/19 25 09/16/2024 URINA LYSIS , COMPL ETE casts NONE SEEN /lpf none seen Not Available [facility] ([facility]) [address] [facility], [place], [address], 09/16/2024 06:07:04 09/15/19 25 09/16/2024 URINA LYSIS , COMPL ETE cast type GOODWILL REPRESENTATIVE Not Available [facility] ([facility]) [address] [facility], [place], [address], 09/16/2024 06:07:04 09/15/19 25 09/16/2024 URINA LYSIS , COMPL ETE crystals GOODWILL REPRESENTATIVE Not Available [facility] ([facility]) [address] [facility], [place], [address], 09/16/2024 06:07:04 09/15/19 25 09/16/2024 URINA LYSIS , COMPL ETE crystal type GOODWILL REPRESENTATIVE Not Available [facility] ([facility]) [address] [facility], [place], [address], 09/16/2024 06:07:04 09/15/19 25 09/16/2024 URINA LYSIS , COMPL ETE mucus threads GOODWILL REPRESENTATIVE Not Available [facility] ([facility]) [address] [facility], [place], [address], 09/16/2024 06:07:04 09/15/19 25 09/16/2024 URINA LYSIS , COMPL ETE bacteria NONE SEEN none seen/f ew Not Available [facility] ([facility]) [address] [facility], [place], [address], 09/16/2024 06:07:04 09/15/19 25 09/16/2024 URINA LYSIS , COMPL ETE yeast GOODWILL REPRESENTATIVE Not Available [facility] ([facility]) [address] [place], [address], 09/16/2024 06:07:04 09/15/19 25 09/16/2024 URINA LYSIS , COMPL ETE trichomonas GOODWILL REPRESENTATIVE Not Available [facility] ([facility]) [address] [place], [address], 09/16/2024 06:07:04 09/15/19 25 09/16/2024 URINA LYSIS , COMPL ETE comment GOODWILL REPRESENTATIVE Not Available [facility] ([facility]) [address] [place], [address], 09/16/2024 06:07:04 09/15/19 25 09/15/2024 LIPID PANEL cholesterol, total 238 mg/dL 100-19 9 above high normal Not Available [facility] ([facility]) [address] [place], [address], 09/16/2024 06:07:05 09/15/19 25 09/15/2024 LIPID PANEL triglyceride s 66 mg/dL 0-149 normal Not Available [facility] ([facility]) [address] [facility], [place], [address], 09/16/2024 06:07:05 09/15/19 25 09/15/2024 LIPID PANEL HDL cholesterol 101 mg/dL >39 normal Not Available [facility] ([facility]) [address] [facility], [place], [address], 09/16/2024 06:07:05 09/15/19 25 09/15/2024 LIPID PANEL VLDL cholesterol marielena 11 mg/dL 5-40 Not Available [facility] ([facility]) [address] [facility], [place], [address], 09/16/2024 06:07:05 09/15/19 25 09/15/2024 LIPID PANEL LDL chol calc ([facility]) 126 mg/dL 0-99 above high normal Not Available [facility] ([facility]) [address] [facility], [place], [address], 09/16/2024 06:07:05 09/15/19 25 09/15/2024 LIPID PANEL LDL calc comment: GOODWILL REPRESENTATIVE Not Available [facility] ([facility]) [address] [facility], [place], [address], 09/16/2024 06:07:05 09/15/19 25 09/15/2024 COAGU LATIO N TISSU E FACTO R INDUC ED.IN R coagulation tissue factor induced.INR 2.3 2.000 - 3.000 normal Not Available [facility] [address], [place], [address], 10/17/2024 16:13:50 09/22/19 25 09/22/2024 COAGU LATIO N TISSU E FACTO R INDUC ED.IN R coagulation tissue factor induced.INR 2.1 2.000 - 3.000 normal Not Available [facility] [address] [facility] [address], [place], [address], 10/17/2024 16:14:07 09/29/19 25 09/29/2024 COAGU LATIO N TISSU E FACTO R INDUC ED.IN R coagulation tissue factor induced.INR 2.1 2.000 - 3.000 normal Not Available [facility] [employer] [employer] [address], [place], [address], 10/17/2024 16:14:30 10/06/19 25 10/06/2024 COAGU LATIO N TISSU E FACTO R INDUC ED.IN R coagulation tissue factor induced.INR 2.1 2.000 - 3.000 normal Not Available [facility] [employer] [employer] [address], [place], [address], 10/17/2024 16:15:46 10/13/19 25 10/13/2024 COAGU LATIO N TISSU E FACTO R INDUC ED.IN R coagulation tissue factor induced.INR 1.8 2.000 - 3.000 low Not Available [employer] [employer] [employer] [address], [place], [address], 10/17/2024 16:36:34 01/24/20 24 01/24/2024 MAMMO , scree alfreda, bilat eral No observ ation record ed. [id number] [facility] [address] [place] [address], [address], 01/24/2024 16:08:01 Result Notes None recorded. Problems Name Problem SNOMED Code Status Onset Date Resolution Date Notes Provider Name and Address Organization Details Recorded Time Liver enzymes outside referenc e range 745147411 Completed 08/24/2014 Shakir Vanessa MD [address] [address], [place], [address] , [facility] 6 19:15:07 Enzyme level - finding 627204268 Completed 08/26/2015 Shakir Vanessa MD [address] [facility] [address], [place], [address] , [facility] 6 19:15:07 Anxiety state 686916340 Completed 08/26/2015 Shakir Vanessa MD [address], [place], [address] , [facility] 6 19:15:07 Tobacco user [id number] Completed 201203/24/2014 RECORDED 02/07/20 13 8:39AM BY ASYA COLON MA, ANNOTATI ON/ADDEN DUM Shkair Vanessa MD [address], [place], [address] , [facility] 6 19:15:07 Benign essentia l hyperten obey 2257499 Completed 201203/24/2014 IMPRESSI ON: SEEMS TO HAVE RESOLVED WITH DIET/LIF ESTYLE CHANGES. CONTINUE MONITORI NG AND REASSESS CV RISK PROFILE. ; RECORDED 08/21/20 13 10:25AM BY ASYA COLON MA, ANNOTATI ON/ADDEN DUM Shakir Vanessa MD [address], [place], [address] , [facility] 6 19:15:07 Elevated blood-pr essure reading without diagnosi s of hyperten obey 265811490 Completed 08/26/2015 Shakir Vanessa MD [address], [place], [address] , [facility] 6 19:15:07 Screenin g for malignan t neoplasm of breast Completed 201203/24/2014 RECORDED 02/07/20 13 8:39AM BY ASYA COLON MA, ANNOTATI ON/ADDEN DUM Margi Grimaldo MA [facility] 8 10:28:13 Screenin g for malignan t neoplasm of cervix Completed 201203/24/2014 RECORDED 09/18/19 13 11:20AM BY ASYA COLON MA, ANNOTATI ON/JENY Vanessa MD [address], [place], [address] , [facility] 6 19:15:07 Influenz a vaccine needed [id number] 06 Completed 201103/24/2014 RECORDED 05/20/20 12 9:18AM BY ASYA COLON MA, OFFICE VISIT Shakir Vanessa MD [address] [facility] [address], [place], [address] , [facility] 6 19:15:07 Adult health examinat ion Completed 201203/24/2014 IMPRESSI ON: IMMUNIZA TION STATUS UTD WILL SCREEN BASED ON RISK FACTORS. REGULAR DENTAL CARE AND SEATBELT USE ADVISED. 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 WILL REASSESS WITH TLC CHANGES. GOAL LDL <130.; RECORDED 08/21/20 13 10:25AM BY ASYA COLON MA, ANNOTATI ON/JENY Vanessa MD [address] [facility] [address], [place], [address] , [facility] 6 19:15:07 Pure hypercho lesterol emia 746927657 Active Not Available [facility] 4 02:17:35 Irritabl e bowel syndrome 34110915 Active Not Available [facility] 4 02:17:35 Insomnia 170570046 Active Not Available [facility] 4 02:17:35 Screenin g for malignan t neoplasm of breast Completed 09/17/2017 Margi Grimaldo MA null, [facility] 8 10:28:13 Multiple joint pain 23481890 Completed 09/25/2019 Shakir Vanessa MD [address], [place], [address] , [facility] 0 10:04:41 Pre-surg carson evaluati on Completed 201103/24/2014 IMPRESSI ON: PATIENT IS AT LOW RISK FOR CARDIOPU LMONARY COMPLICA TIONS WITH PLANNED PROCEDUR E BASED ON COMORBID ITIES, GOOD EXERTION AL TOLERANC E AND OVERALL PROCEDUR E RISK. PT ADVISED TO AVOID ASPIRIN AND NSAIDS FOR 7 DAYS PRIOR. MEDICALL Y STABLE/C LEARED TO PROCEED WITH SURGERY PLANNED. ; RECORDED 08/02/20 12 11:01AM BY ASYA COLON MA, ANNOTATI ON/JENY Vanessa MD [address], [place], [address] , [facility] 6 19:15:07 Tobacco user [id number] Completed 201204/20/2014 RECORDED 02/07/20 13 8:39AM BY ASYA COLON MA, ANNOTATI ON/JENY Vanessa MD [address], [place], [address] , [facility] 6 19:15:07 Benign essentia l hyperten obey 6143348 Completed 201204/20/2014 IMPRESSI ON: SEEMS TO HAVE RESOLVED WITH DIET/LIF ESTYLE CHANGES. CONTINUE MONITORI NG AND REASSESS CV RISK PROFILE. ; RECORDED 08/21/20 13 10:25AM BY ASYA COLON MA, ANNOTATI ON/JENY Vanessa MD [address], [place], [address] , [facility] 6 19:15:07 Screenin g for malignan t neoplasm of breast Completed 201204/20/2014 RECORDED 02/07/20 13 8:39AM BY ASYA COLON MA, LISAATI ON/ADDEN DUM [facility] 10:28[facility] Screenin g for malignan t neoplasm of cervix Completed 201204/20/2014 RECORDED 09/18/19 13 11:20AM BY ASYA COLON MA, ANNOTATI ON/ADDEN DUM Shakir Vanessa MD [address], [place], [address] , [facility] 6 19:15:07 Influenz a vaccine needed [id number] 06 Completed 201104/20/2014 RECORDED 05/20/20 12 9:18AM BY ASYA COLON MA, OFFICE VISIT Shakir Vanessa MD [address] [facility] [address], [place], [address] , [facility] 6 19:15:07 Adult health examinat ion Completed 201204/20/2014 IMPRESSI ON: IMMUNIZA TION STATUS UTD WILL SCREEN BASED ON RISK FACTORS. REGULAR DENTAL CARE AND SEATBELT USE ADVISED. DISTRACT ED DRIVING GALINA Ochoa COLONOSC OPY DUE 2016, PAP NOT DUE FOR AT LEAST 1 YR MAYBE NEVER BUT NEED TO TRACK DOWN PRIOR RESULTS WELL BND REPORT FROM LAST YEAR.; RECORDED 08/21/20 13 10:26AM BY ASAY COLON MA, MARTA ON/JENY Vanessa MD [address], [place], [address] , [facility] 6 19:15:07 Pure hypercho lesterol emia 715518698 Completed 201204/20/2014 IMPRESSI ON: MILD ELEVATIO N IN THE PAST. WILL REASSESS WITH TLC CHANGES. GOAL LDL <130.; RECORDED 08/21/20 13 10:25AM BY ASYA COLON MA, ANNOTATI ON/ADDNAINA DAREN Vanessa MD [address], [place], [address] , [facility] 6 19:15:07 Pre-surg carson evaluati on Completed 201104/20/2014 IMPRESSI ON: PATIENT IS AT LOW RISK FOR CARDIOPU LMONARY COMPLICA TIONS WITH PLANNED PROCEDUR E BASED ON COMORBID ITIES, GOOD EXERTION AL TOLERANC E AND OVERALL PROCEDUR E RISK. PT ADVISED TO AVOID ASPIRIN AND NSAIDS FOR 7 DAYS PRIOR. MEDICALL Y STABLE/C LEARED TO PROCEED WITH SURGERY PLANNED. ; RECORDED 08/02/20 12 11:01AM BY ASYA COLON MA, ANNOTATI ON/JENY Vanessa MD [address], [place], [address] , [facility] 6 19:15:07 Body mass index 25-29 - overweig ht 981021527 Completed 09/17/2017 Shakir Vanessa MD [address], [place], [address] , [facility] 8 11:07:39 Menopaus e present 117226490 Active Not Available [facility] 4 02:17:35 Thyroid hormone tests outside referenc e range 966801921 Completed 08/30/2016 Shakir Vanessa MD [address], [place], [address] , [facility] 6 09:45:17 Proteinu vini 89021202 Completed 09/17/2017 Shakir Vanessa MD [address], [place], [address] , [facility] 4 06:32:31 Abdomina l pulsatil e mass 6420614 Completed 08/30/2016 Neg AAA 11/2014 Shakir Vanessa MD [address], [place], [address] , [facility] 6 09:45:29 Arterios clerotic vascular disease 50084848 Active 2014 Not Available [facility] 4 02:17:35 Moderate anxiety 64107961 Completed 09/24/2018 Shakir Vanessa MD [address], [place], [address] , [facility] 9 09:59:54 Subclini marielena hypothyr oidism 89565529 Completed 09/28/2022 Shakir Vanessa MD [address], [place], [address] , [facility] 3 11:13:59 Epistaxi s Completed 08/30/2016 Shakir Vanessa MD [address], [place], [address] , [facility] 6 09:45:07 Dysuria 14559067 Completed 08/30/2016 Shakir Vanessa MD [address], [place], [address] , [facility] 6 09:45:10 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 898833279 Active 2016 Not Available [facility] 4 02:17:35 Labile hyperten obey due to being in a clinical environm ent 182517819 Active 2016 Not Available [facility] 4 02:17:35 Osteoart hritis of knee 831189859 Active 2016 modleft Not Available [facility] 4 02:17:35 Pain of right wrist 09566559503 9100 Completed 201709/25/2019 Shakir Vanessa MD [address], [place], [address] , [facility] 0 10:04:52 Chondrom alacia of patella 10081266 Active 2017 Not Available [facility] 4 02:17:35 Radial styloid tenosyno vitis 25366802 Completed 201709/25/2019 right Shakir Vanessa MD [address], [place], [address] , [facility] 0 10:04:58 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 01520337 Active 2017 Not Available [facility] 4 02:17:35 Generali zed anxiety disorder 75992638 Active 2018 Not Available [facility] 4 02:17:35 Dilatati on of aorta 26606835 Active 2018 3cm Not Available [facility] 4 02:17:35 Divertic ular disease 098574828 Active 2018 Not Available [facility] 4 02:17:35 Gastroes ophageal reflux disease 208638600 Active 2019 Not Available [facility] 4 02:17:35 Tubular adenoma of colon 305319000 Active 2018 x 2 Not Available [facility] 4 02:17:35 Computed tomograp hy result abnormal 336117368 Active [address] chest 08/28; saw pulm 10/01/19 - repeatin g CT in a week Not Available [facility] 4 02:17:35 Synovial cyst of knee 614801777 Active 2019 Not Available [facility] 4 02:17:35 Acute pulmonar y embolism 369886046 Completed 202010/03/2024 Shakir Vanessa MD [address], [place], [address] , [facility] 5 10:42:20 Abdomina l aortic aneurysm 192990410 Active 2020 ectasia, stable as of 10/2020 Not Available [facility] 4 02:17:35 Sensorin eural hearing loss of bilatera l ears 931705991 Active 2020 mod-kd re high frequenc y Not Available [facility] 4 02:17:35 Essentia l hyperten obey 45548354 Active 2020 Not Available [facility] 4 02:17:35 Long-ter m current use of anticoag ulant 028683364 Active 2021 Not Available [facility] 4 02:17:35 Body mass index 30+ - obesity 970535043 Completed 202109/28/2022 Shakir Vanessa MD [address], [place], [address] , [facility] 5 07:19:01 Vitamin D below referenc e range 437855735 Active 2022 Not Available [facility] 4 02:17:35 Hyperten obey monitori ng status 741746802 Active 2022 enrolled Not Available [facility] 4 02:17:35 Chronic pulmonar y embolism 57348044925 9108 Active 2023 unprovok ed, negative hypercoa g eval, indefini te anticoag ulation per heme Shakir Vanessa MD [address], [place], [address] , [facility] 5 10:42:30 Hiatal hernia 53284914 Active 2023 Shakir Vanessa MD [address], [place], [address] , [facility] 4 17:47:34 Proteinu vini 28107339 Active 2023 Shakir Vanessa MD [address], [place], [address] , [facility] 4 06:32:31 Hypercoa gulabili state 70219297 Active 2023 Shakir Vanessa MD [address], [place], [address] , [facility] 4 11:34:54 COVID-19 123248557 Completed 202309/17/2024 Shakir Vanessa MD [address] [facility] [address], [place], [address] , [facility] 5 10:33:34 History of chronic renal impairme nt 993199224 Active 2024 Shakir Vanessa MD [address] [facility] [address], [place], [address] , [facility] 5 10:33:54 Body mass index 30+ - obesity 695330990 Active 2024 Shakir Vanessa MD [address] [facility] [address], [place], [address] , [facility] 5 07:19:01 Problem Notes None recorded. Procedures Surgical History Date Name Laterality Status Provider Name and Address Organization Details Recorded Time 01/24/20 24 Most Recent Mammogram completed Jasmyne Álvarez [facility] 01/24/2024 16:07:58 01/24/20 24 Mammogram Screening completed Jasmyne Álvarez [facility] 01/24/2024 16:07:50 01/10/20 24 Colonoscopy completed Shakir Vanessa MD [address] [address], [place], [address], [facility] 01/13/2024 17:13:29 01/10/20 24 Egd diagnostic brush wash completed Shakir Vanessa MD [address] [address], [place], [address], [facility] 01/13/2024 17:48:26 10/26/19 24 FOBT completed Maile yancey [facility] 10/26/2023 13:24:27 02/09/20 23 Advanced Care Planning completed Yasmeen Powers [facility] 02/09/2023 13:11:40 09/28/19 23 Advanced Care Planning completed Shakir Vanessa MD [address] [facility], [place], [address], [facility] 09/28/2022 10:57:34 05/03/20 22 Suture/Staple removal completed Tatiana Mott PA-C [address] [facility] [address] [facility], [place], [address], [facility] 05/03/2022 13:29:17 10/11/19 21 Echo transthoracic completed Shakir Vanessa MD [address] [facility] [address] [facility], [place], [address], [facility] 10/11/2020 15:11:39 09/24/19 21 Six-Item Cognitive Test completed Asya Colon MA [facility] 09/24/2020 08:38:28 09/25/19 20 Mini-Cog Test completed Maile yancey MA [facility] 09/25/2019 09:37:08 09/25/19 20 Advanced Care Planning completed Shakir Vanessa MD [address] [facility] [address] [facility], [place], [address], [facility] 09/25/2019 10:26:14 12/20/19 19 Date of Last Colonoscopy completed Asya Colon MA [facility] 03/04/2019 10:54:12 12/20/19 19 colonoscopy and biopsy of colon completed Shakir Vanessa MD [address] [address], [place], [address], [facility] 09/26/2019 13:10:06 12/04/19 19 Most Recent Bone Density completed Asya Colon MA [facility] 04/30/2020 08:50:40 12/04/19 19 Dxa bone density homer vrt fx completed Asya Colon MA [facility] 04/30/2020 08:50:52 09/24/19 19 Mini-Cog Test completed Maile yancey MA [facility] 09/24/2018 09:32:31 09/24/19 19 Advanced Care Planning completed Shakir Vanessa MD [address], [place], [address], [facility] 10/01/2018 08:21:14 06/10/20 18 hysteroscopy with biopsy completed Maile yancey MA [facility] 09/24/2018 09:29:37 09/17/19 18 Fall Risk Assessment completed Margi Grimaldo MA [facility] 09/17/2017 10:32:49 09/17/19 18 Mini-Cog Test completed Margi Grimaldo MA [facility] 09/17/2017 10:33:04 10/05/19 17 Advanced Care Planning completed Shakir Vanessa MD [address], [place], [address], [facility] 10/05/2016 09:41:14 08/30/20 16 Fall Risk Assessment completed Asya Colon MA [facility] 08/30/2016 09:17:41 08/30/20 16 Mini-Cog Test completed Asya Colon MA [facility] 08/30/2016 09:17:46 08/26/20 15 Fall Risk Assessment completed Margi Grimaldo MA [facility] 08/26/2015 08:39:40 08/26/20 15 Mini-Cog Test completed Margi Grimaldo MA [facility] 08/26/2015 08:38:18 08/24/20 14 Fall Risk Assessment completed Asya Colon MA [facility] 08/24/2014 09:58:43 08/24/20 14 Mini-Cog Test completed Asya Colon MA [facility] 08/24/2014 09:58:43 07/30/20 13 Date of Last Pap Smear completed Asya Colon MA [facility] 03/26/2014 09:10:08 02/14/20 11 completed Asya Colon MA [facility] 03/26/2014 09:10:08 Breast Biopsy completed Asya Colon MA [facility] 03/26/2014 09:10:08 Cataract Surgery completed Shakir Vanessa MD [address] [address], [place], [address], [facility] 09/17/2017 11:14:52 Dilation and Curettage completed Asya Colon MA [facility] 08/24/2014 09:58:43 Imaging Results Imaging Date Name Status LastModified by Organiz ation Details LastModified Time 01/24/2024 MAMMO, screening, bilateral completed [id number] [facility] [address] [facility], [place], [address], 01/24/2024 16:08:01 Procedure Notes None recorded. Medical Equipment None Reported. Allergies Allergen ID Allergen Name Allergen Category Reaction Reaction Severity Criticality Documentation Date Start Date Code Code System Note Provider Name and Address Organization Details Recorded Time 81227 Substance with sulfonami de structure and antibacte rial mechanism of action (substanc e) medicatio n itching Not available Not available 03/26/2014 92972 8003 SNOMED TERELL Pedroza [facility] 4 09:10:08 85140 adhesive tape environme nt,medica tion rash Not available Not available 09/25/2019 42488 UNK TERELL Puente [facility] 0 09:30:27 Medications Name Sig Start Date Stop Date Status Note LastModified by Organization Details LastModified Time desonide 0.05 % topical cream 02/27 completed Not Available Not Available Not Available prednison e 10 mg tablet 4 tabs x 3 days, 3 tabs x 3 days, 2 tabs x 3 days 1 tab x 3 daysl 09/25 completed Not Available Not Available Not Available doxycycli ne hyclate 100 mg capsule Take 1 capsule twice a day by oral route for 10 days. 09/25 completed Not Available Not Available Not Available clindamyc in HCl 300 mg capsule TAKE 1 CAPSULE BY MOUTH THREE TIMES DAILY UNTIL ALL TAKEN 09/28 completed Not Available Not Available Not Available trazodone 50 mg tablet Take 1.5 tablets every day by oral route at bedtime for 90 days, for insomnia . active Not Available Not Available No t Available pravastat in 40 mg tablet TAKE 1 TABLET DAILY DIRECTED active Not Available Not Available No t Available ibuprofen 800 mg tablet 04/30 completed Not Available Not Available Not Available citalopra m 10 mg tablet TAKE 1 TABLET DAILY DIRECTED active Not Available Not Available No t Available metronida zole 0.75 % (37.5 mg/5 gram) vaginal gel 05/24 completed Not Available Not Available Not Available Pyridium 100 mg tablet Take 1 tablet 3 times a day by oral route for 3 days. 08/30 completed Not Available Not Available Not Available warfarin 2.5 mg tablet take 1 tab 6 days a week, and 2 tabs 1 day a week 12/23 completed Not Available Not Available Not Available diphenoxy late-atro pine 2.5 mg-0.025 mg tablet Take 1 tablet every day by oral route as needed for 90 days. active Not Available Not Available No t Available amlodipin e 2.5 mg tablet TAKE 1 TABLET DAILY 10/02 completed Not Available Not Available Not Available amlodipin e 5 mg tablet TAKE 1 TABLET DAILY active Not Available Not Available No t Available ciproflox acin 500 mg tablet TAKE 1 TABLET BY MOUTH EVERY 12 HOURS FOR 7 DAYS 05/08 completed Not Available Not Available Not Available aspirin 81 mg tablet,de layed release Take 1 tablet every day by oral route. 09/25 completed Not Available Not Available Not Available amoxicill in 500 mg tablet 04/11 completed Not Available Not Available Not Available acetamino phen ER 650 mg tablet,ex tended release EVERY SIX HOURS, NEEDED orally 05/24 completed RECORDED 08/21/20 13 10:36AM BY ASYA COLON MA, OFFICE VISIT; Not Available Not Available Not Available famotidin e 20 mg tablet TAKE 1 TABLET TWICE A DAY 01/09 completed Not Available Not Available Not Available pravastat in 80 mg tablet Take 1 tablet every day by oral route. active Not Available Not Available No t Available ranitidin e 75 mg tablet Take 1 tablet twice a day by oral route as needed. 09/25 completed Not Available Not Available Not Available warfarin 5 mg tablet TAKE 1 TABLET SIX DAYS A WEEK AND 2 TABLETS ONE DAY A WEEK active Not Available Not Available No t Available hydrochlo rothiazid e 12.5 mg capsule TAKE 1 CAPSULE DAILY active Not Available Not Available No t Available cranberry fruit 400 mg capsule Take 1 capsule every day by oral route for 30 days. 08/30 completed Not Available Not Available Not Available omeprazol e 20 mg capsule,d elayed release TAKE 1 CAPSULE DAILY active Not Available Not Available No t Available enoxapari n 150 mg/mL subcutane ous syringe INJECT 140MG EVERY DAY BY SUBCUTAN EOUS ROUTE DIRECTED 01/27 completed Not Available Not Available Not Available codeine 10 mg-guaife nesin 100 mg/5 mL oral liquid Take 10 mL every 4 hours by oral route as needed for 5 days. 09/25 completed Not Available Not Available Not Available magnesium 250 mg tablet Take 1 tablet every day by oral route at bedtime for 90 days. 2024 active Not Available Not Available Not Avai lable ibuprofen 600 mg tablet 09/24 completed Not Available Not Available Not Available albuterol sulfate HFA 90 mcg/actua tion aerosol inhaler Inhale 2 puffs every 4 hours by inhalati on route for 15 days. 09/25 completed Not Available Not Available Not Available diphenhyd ramine 25 mg-acetam inophen 500 mg tablet AT BEDTIME 09/20 completed RECORDED 09/24/19 14 11:22AM BY SHAKIR Medina MD, MEDICATI ON AUTO-KAMRYN CTIVATIO N; Not Available Not Available Not Available oxybutyni n chloride 5 mg tablet Take 1 tablet as needed by oral route at bedtime. 08/04 completed Not Available Not Available Not Available fluticaso ne propionat e 50 mcg/actua tion nasal spray,[place] [employer] SHAKE LIQUID AND USE 2 SPRAYS IN EACH NOSTRIL EVERY DAY DIRECTED active Not Available Not Available No t Available doxycycli ne hyclate 100 mg tablet Take 1 tablet twice a day by oral route for 10 days. 02/25 completed Not Available Not Available Not Available amoxicill in 875 mg-[place] ium clavulana te 125 mg tablet TAKE 1 TABLET BY MOUTH TWICE DAILY X5 DAYS 01/06 completed Not Available Not Available Not Available bacitraci n-polymyx in B 500 unit-10,0 00 unit/gram eye ointment active Not Available Not Available Not Available Mucinex 600 mg tablet, extended release Take 1 tablet every 12 hours by oral route for 7 days. 10/02 completed Not Available Not Available Not Available nitrofura ntoin monohydra te/macroc rystals 100 mg capsule 08/30 completed Not Available Not Available Not Available Aspirin EC DAILY 2013 active RECORDED 11/21/19 14 9:39AM BY SHAKIR Medina MD, OFFICE VISIT; Not Available Not Available Not Available Baby Aspirin 1 tab daily orally 09/24 completed Not Available Not Available Not Available PreserVis ion AREDS 1 tablet BID active Not Available Not Available No t Available Caltrate 600-D Plus Minerals 600 mg-10 mcg (400 unit) tablet DAILY orally 09/25 completed Not Available Not Available Not Available GaviLyte- G 236 gram-22.7 4 gram-6.74 gram-5.86 gram oral solution MIX AND DRINK 8 OUNCES BY MOUTH EVERY 10 TO 15 MINUTES DIRECTED BY OFFICE 01/06 completed Not Available Not Available Not Available Flonase Sensimist 27.5 mcg/actua tion nasal spray,[place] [facility] Take 2 sprays every day by nasal route for 30 days. 12/20 completed Not Available Not Available Not Available Shingrix (PF) 50 mcg/0.5 mL intramusc ular suspensio n, kit 04/30 completed Not Available Not Available Not Available Tylenol 325 mg capsule Take 2 capsules as needed by oral route. active Not Available Not Available No t Available Fluzone High-Dose (PF) 180 mcg/0.5 mL intramusc ular syringe VACCINAT ION ADMINIST ERED BY PHARMACI ST 04/30 completed Not Available Not Available Not Available Fluzone High-Dose Quad (PF) 240 mcg/0.7 mL IM syringe VACCINAT ION ADMINIST ERED BY DYAN BONNER 09/24 completed Not Available Not Available Not Available Paxlovid 150 mg-100 mg tablets in a dose pack (Renal Dose) TAKE 2 TABLETS BY MOUTH TWICE DAILY FOR 5 DAYS 10/03 completed Not Available Not Available Not Available Vitals Date Recorded Heart rate Systolic blood pressure Diastolic blood pressure Provider Name and Address Organization Details Last Updated DateTime 01/07/2024 59 /min 148 mm[Hg] 76 mm[Hg] Not Available [facility] 01/07/2024 09:38:02 Date Recorded Body height Body mass index (BMI) Body weight Heart rate Oxygen saturation Oxygen saturation in Arterial blood by Pulse oximetry Body temperature Systolic blood pressure Diastolic blood pressure Provider Name and Address Organization Details Last Updated DateTime 168.91 cm 30.9 kg/m2 92865.3 2 g 61 /min 97 % 97 % 97.5 [degF] 137 mm[Hg] 77 mm[Hg] Lili Barajas [facility] 13:38:21 Date Recorded Heart rate Systolic blood pressure Diastolic blood pressure Provider Name and Address Organization Details Last Updated DateTime 01/08/2024 60 /min 132 mm[Hg] 69 mm[Hg] Not Available [facility] 01/08/2024 09:27:03 Date Recorded Heart rate Systolic blood pressure Diastolic blood pressure Provider Name and Address Organization Details Last Updated DateTime 01/09/2024 57 /min 146 mm[Hg] 81 mm[Hg] Not Available [facility] 01/09/2024 09:48:09 Date Recorded Heart rate Systolic blood pressure Diastolic blood pressure Provider Name and Address Organization Details Last Updated DateTime 01/10/2024 65 /min 146 mm[Hg] 81 mm[Hg] Not Available [facility] 01/10/2024 07:51:02 Date Recorded Heart rate Systolic blood pressure Diastolic blood pressure Provider Name and Address Organization Details Last Updated DateTime 01/11/2024 71 /min 149 mm[Hg] 76 mm[Hg] Not Available [facility] 01/11/2024 10:57:01 Date Recorded Heart rate Systolic blood pressure Diastolic blood pressure Provider Name and Address Organization Details Last Updated DateTime 01/12/2024 67 /min 142 mm[Hg] 80 mm[Hg] Not Available [facility] 01/12/2024 11:10:06 Date Recorded Heart rate Systolic blood pressure Diastolic blood pressure Provider Name and Address Organization Details Last Updated DateTime 01/14/2024 75 /min 129 mm[Hg] 76 mm[Hg] Not Available [facility] 01/14/2024 08:36:02 Date Recorded Heart rate Systolic blood pressure Diastolic blood pressure Provider Name and Address Organization Details Last Updated DateTime 01/15/2024 61 /min 124 mm[Hg] 66 mm[Hg] Not Available [facility] 01/15/2024 10:12:03 Date Recorded Heart rate Systolic blood pressure Diastolic blood pressure Provider Name and Address Organization Details Last Updated DateTime 01/16/2024 61 /min 141 mm[Hg] 73 mm[Hg] Not Available [facility] 01/16/2024 09:21:05 Date Recorded Heart rate Systolic blood pressure Diastolic blood pressure Provider Name and Address Organization Details Last Updated DateTime 01/17/2024 67 /min 125 mm[Hg] 73 mm[Hg] Not Available [facility] 01/17/2024 10:13:05 Date Recorded Heart rate Systolic blood pressure Diastolic blood pressure Provider Name and Address Organization Details Last Updated DateTime 01/18/2024 73 /min 125 mm[Hg] 70 mm[Hg] Not Available [facility] 01/18/2024 09:16:06 Date Recorded Heart rate Systolic blood pressure Diastolic blood pressure Provider Name and Address Organization Details Last Updated DateTime 01/19/2024 58 /min 141 mm[Hg] 71 mm[Hg] Not Available [facility] 01/19/2024 09:48:01 Date Recorded Heart rate Heart rate Systolic blood pressure Diastolic blood pressure Systolic blood pressure Diastolic blood pressure Provider Name and Address Organization Details Last Updated DateTime 70 /min 75 /min 161 mm[Hg] 89 mm[Hg] 126 mm[Hg] 71 mm[Hg] Not Available [facility] 13:56:09 Date Recorded Heart rate Systolic blood pressure Diastolic blood pressure Provider Name and Address Organization Details Last Updated DateTime 01/22/2024 63 /min 126 mm[Hg] 71 mm[Hg] Not Available [facility] 01/22/2024 11:19:05 Date Recorded Heart rate Systolic blood pressure Diastolic blood pressure Provider Name and Address Organization Details Last Updated DateTime 01/23/2024 59 /min 128 mm[Hg] 71 mm[Hg] Not Available [facility] 01/23/2024 09:01:24 Date Recorded Heart rate Systolic blood pressure Diastolic blood pressure Provider Name and Address Organization Details Last Updated DateTime 01/24/2024 62 /min 129 mm[Hg] 71 mm[Hg] Not Available [facility] 01/24/2024 08:42:08 Date Recorded Heart rate Systolic blood pressure Diastolic blood pressure Provider Name and Address Organization Details Last Updated DateTime 01/25/2024 67 /min 132 mm[Hg] 73 mm[Hg] Not Available [facility] 01/25/2024 11:09:08 Date Recorded Heart rate Systolic blood pressure Diastolic blood pressure Provider Name and Address Organization Details Last Updated DateTime 01/26/2024 62 /min 125 mm[Hg] 71 mm[Hg] Not Available [facility] 01/26/2024 09:49:14 Date Recorded Heart rate Heart rate Systolic blood pressure Diastolic blood pressure Provider Name and Address Organization Details Last Updated DateTime 01/27/2024 70 /min 62 /min 137 mm[Hg] 82 mm[Hg] Not Available [facility] 01/27/2024 17:23:04 Date Recorded Heart rate Systolic blood pressure Diastolic blood pressure Provider Name and Address Organization Details Last Updated DateTime 01/28/2024 68 /min 125 mm[Hg] 67 mm[Hg] Not Available [facility] 01/28/2024 09:18:06 Date Recorded Heart rate Systolic blood pressure Diastolic blood pressure Provider Name and Address Organization Details Last Updated DateTime 01/29/2024 66 /min 130 mm[Hg] 69 mm[Hg] Not Available [facility] 01/29/2024 09:10:07 Date Recorded Heart rate Systolic blood pressure Diastolic blood pressure Provider Name and Address Organization Details Last Updated DateTime 01/30/2024 72 /min 131 mm[Hg] 74 mm[Hg] Not Available [facility] 01/30/2024 10:54:07 Date Recorded Heart rate Systolic blood pressure Diastolic blood pressure Provider Name and Address Organization Details Last Updated DateTime 01/31/2024 59 /min 131 mm[Hg] 69 mm[Hg] Not Available [facility] 01/31/2024 09:01:03 Date Recorded Heart rate Systolic blood pressure Diastolic blood pressure Provider Name and Address Organization Details Last Updated DateTime 02/01/2024 62 /min 126 mm[Hg] 67 mm[Hg] Not Available [facility] 02/01/2024 09:20:06 Date Recorded Heart rate Systolic blood pressure Diastolic blood pressure Provider Name and Address Organization Details Last Updated DateTime 02/02/2024 73 /min 124 mm[Hg] 68 mm[Hg] Not Available [facility] 02/02/2024 10:32:10 Date Recorded Heart rate Systolic blood pressure Diastolic blood pressure Provider Name and Address Organization Details Last Updated DateTime 02/03/2024 57 /min 127 mm[Hg] 68 mm[Hg] Not Available [facility] 02/03/2024 10:04:06 Date Recorded Heart rate Systolic blood pressure Diastolic blood pressure Provider Name and Address Organization Details Last Updated DateTime 02/04/2024 85 /min 127 mm[Hg] 75 mm[Hg] Not Available [facility] 02/04/2024 13:38:07 Date Recorded Heart rate Systolic blood pressure Diastolic blood pressure Provider Name and Address Organization Details Last Updated DateTime 02/05/2024 66 /min 127 mm[Hg] 65 mm[Hg] Not Available [facility] 02/05/2024 09:53:10 Date Recorded Heart rate Systolic blood pressure Diastolic blood pressure Provider Name and Address Organization Details Last Updated DateTime 02/06/2024 66 /min 125 mm[Hg] 65 mm[Hg] Not Available [facility] 02/06/2024 11:53:05 Date Recorded Heart rate Systolic blood pressure Diastolic blood pressure Provider Name and Address Organization Details Last Updated DateTime 02/07/2024 70 /min 119 mm[Hg] 65 mm[Hg] Not Available [facility] 02/07/2024 09:38:07 Date Recorded Heart rate Systolic blood pressure Diastolic blood pressure Provider Name and Address Organization Details Last Updated DateTime 02/08/2024 61 /min 129 mm[Hg] 67 mm[Hg] Not Available [facility] 02/08/2024 09:35:04 Date Recorded Heart rate Systolic blood pressure Diastolic blood pressure Provider Name and Address Organization Details Last Updated DateTime 02/09/2024 63 /min 140 mm[Hg] 72 mm[Hg] Not Available [facility] 02/09/2024 08:24:04 Date Recorded Heart rate Systolic blood pressure Diastolic blood pressure Provider Name and Address Organization Details Last Updated DateTime 02/10/2024 59 /min 118 mm[Hg] 70 mm[Hg] Not Available [facility] 02/10/2024 09:36:05 Date Recorded Heart rate Systolic blood pressure Diastolic blood pressure Provider Name and Address Organization Details Last Updated DateTime 02/11/2024 63 /min 120 mm[Hg] 70 mm[Hg] Not Available [facility] 02/11/2024 09:41:06 Date Recorded Heart rate Systolic blood pressure Diastolic blood pressure Provider Name and Address Organization Details Last Updated DateTime 02/12/2024 65 /min 123 mm[Hg] 68 mm[Hg] Not Available [facility] 02/12/2024 09:35:11 Date Recorded Heart rate Systolic blood pressure Diastolic blood pressure Provider Name and Address Organization Details Last Updated DateTime 02/13/2024 60 /min 123 mm[Hg] 64 mm[Hg] Not Available [facility] 02/13/2024 07:35:02 Date Recorded Heart rate Systolic blood pressure Diastolic blood pressure Provider Name and Address Organization Details Last Updated DateTime 02/14/2024 69 /min 123 mm[Hg] 66 mm[Hg] Not Available [facility] 02/14/2024 13:21:06 Date Recorded Heart rate Systolic blood pressure Diastolic blood pressure Provider Name and Address Organization Details Last Updated DateTime 02/15/2024 65 /min 119 mm[Hg] 66 mm[Hg] Not Available [facility] 02/15/2024 09:03:09 Date Recorded Heart rate Systolic blood pressure Diastolic blood pressure Provider Name and Address Organization Details Last Updated DateTime 02/16/2024 67 /min 150 mm[Hg] 79 mm[Hg] Not Available [facility] 02/16/2024 10:47:01 Date Recorded Heart rate Systolic blood pressure Diastolic blood pressure Provider Name and Address Organization Details Last Updated DateTime 02/17/2024 72 /min 120 mm[Hg] 72 mm[Hg] Not Available [facility] 02/17/2024 10:26:07 Date Recorded Heart rate Systolic blood pressure Diastolic blood pressure Provider Name and Address Organization Details Last Updated DateTime 02/18/2024 78 /min 133 mm[Hg] 74 mm[Hg] Not Available [facility] 02/18/2024 05:44:04 Date Recorded Heart rate Systolic blood pressure Diastolic blood pressure Provider Name and Address Organization Details Last Updated DateTime 02/19/2024 63 /min 126 mm[Hg] 70 mm[Hg] Not Available [facility] 02/19/2024 09:00:09 Date Recorded Heart rate Systolic blood pressure Diastolic blood pressure Provider Name and Address Organization Details Last Updated DateTime 02/20/2024 67 /min 126 mm[Hg] 71 mm[Hg] Not Available [facility] 02/20/2024 11:38:02 Date Recorded Heart rate Systolic blood pressure Diastolic blood pressure Provider Name and Address Organization Details Last Updated DateTime 02/21/2024 59 /min 114 mm[Hg] 71 mm[Hg] Not Available [facility] 02/21/2024 08:52:07 Date Recorded Heart rate Systolic blood pressure Diastolic blood pressure Provider Name and Address Organization Details Last Updated DateTime 02/22/2024 63 /min 125 mm[Hg] 71 mm[Hg] Not Available [facility] 02/22/2024 14:00:02 Date Recorded Heart rate Systolic blood pressure Diastolic blood pressure Provider Name and Address Organization Details Last Updated DateTime 02/23/2024 65 /min 132 mm[Hg] 69 mm[Hg] Not Available [facility] 02/23/2024 09:06:04 Date Recorded Heart rate Systolic blood pressure Diastolic blood pressure Provider Name and Address Organization Details Last Updated DateTime 02/25/2024 67 /min 125 mm[Hg] 69 mm[Hg] Not Available [facility] 02/25/2024 09:38:08 Date Recorded Heart rate Systolic blood pressure Diastolic blood pressure Provider Name and Address Organization Details Last Updated DateTime 02/26/2024 74 /min 122 mm[Hg] 66 mm[Hg] Not Available [facility] 02/26/2024 10:32:06 Date Recorded Heart rate Systolic blood pressure Diastolic blood pressure Provider Name and Address Organization Details Last Updated DateTime 02/27/2024 78 /min 127 mm[Hg] 69 mm[Hg] Not Available [facility] 02/27/2024 07:31:04 Date Recorded Heart rate Systolic blood pressure Diastolic blood pressure Provider Name and Address Organization Details Last Updated DateTime 02/28/2024 75 /min 121 mm[Hg] 65 mm[Hg] Not Available [facility] 02/28/2024 09:39:07 Date Recorded Heart rate Systolic blood pressure Diastolic blood pressure Provider Name and Address Organization Details Last Updated DateTime 02/29/2024 68 /min 125 mm[Hg] 67 mm[Hg] Not Available [facility] 02/29/2024 10:01:02 Date Recorded Heart rate Systolic blood pressure Diastolic blood pressure Provider Name and Address Organization Details Last Updated DateTime 03/01/2024 67 /min 125 mm[Hg] 67 mm[Hg] Not Available [facility] 03/01/2024 10:01:06 Date Recorded Heart rate Systolic blood pressure Diastolic blood pressure Provider Name and Address Organization Details Last Updated DateTime 03/02/2024 75 /min 143 mm[Hg] 84 mm[Hg] Not Available [facility] 03/02/2024 11:23:05 Date Recorded Heart rate Systolic blood pressure Diastolic blood pressure Provider Name and Address Organization Details Last Updated DateTime 03/03/2024 59 /min 117 mm[Hg] 63 mm[Hg] Not Available [facility] 03/03/2024 07:45:07 Date Recorded Heart rate Systolic blood pressure Diastolic blood pressure Provider Name and Address Organization Details Last Updated DateTime 03/04/2024 59 /min 124 mm[Hg] 70 mm[Hg] Not Available [facility] 03/04/2024 06:10:08 Date Recorded Heart rate Systolic blood pressure Diastolic blood pressure Provider Name and Address Organization Details Last Updated DateTime 03/21/2024 77 /min 124 mm[Hg] 65 mm[Hg] Not Available [facility] 03/21/2024 08:59:04 Date Recorded Heart rate Systolic blood pressure Diastolic blood pressure Provider Name and Address Organization Details Last Updated DateTime 03/22/2024 69 /min 141 mm[Hg] 76 mm[Hg] Not Available [facility] 03/22/2024 10:15:09 Date Recorded Heart rate Systolic blood pressure Diastolic blood pressure Provider Name and Address Organization Details Last Updated DateTime 03/23/2024 73 /min 121 mm[Hg] 69 mm[Hg] Not Available [facility] 03/23/2024 09:36:01 Date Recorded Heart rate Systolic blood pressure Diastolic blood pressure Provider Name and Address Organization Details Last Updated DateTime 03/24/2024 70 /min 142 mm[Hg] 74 mm[Hg] Not Available [facility] 03/24/2024 09:30:05 Date Recorded Heart rate Systolic blood pressure Diastolic blood pressure Provider Name and Address Organization Details Last Updated DateTime 03/25/2024 68 /min 123 mm[Hg] 70 mm[Hg] Not Available [facility] 03/25/2024 08:48:08 Date Recorded Heart rate Systolic blood pressure Diastolic blood pressure Provider Name and Address Organization Details Last Updated DateTime 03/27/2024 73 /min 116 mm[Hg] 64 mm[Hg] Not Available [facility] 03/27/2024 09:53:06 Date Recorded Heart rate Systolic blood pressure Diastolic blood pressure Provider Name and Address Organization Details Last Updated DateTime 03/28/2024 65 /min 119 mm[Hg] 75 mm[Hg] Not Available [facility] 03/28/2024 14:30:05 Date Recorded Heart rate Systolic blood pressure Diastolic blood pressure Provider Name and Address Organization Details Last Updated DateTime 03/29/2024 76 /min 112 mm[Hg] 71 mm[Hg] Not Available [facility] 03/29/2024 09:15:05 Date Recorded Heart rate Systolic blood pressure Diastolic blood pressure Provider Name and Address Organization Details Last Updated DateTime 03/30/2024 75 /min 118 mm[Hg] 71 mm[Hg] Not Available [facility] 03/30/2024 09:10:03 Date Recorded Heart rate Systolic blood pressure Diastolic blood pressure Provider Name and Address Organization Details Last Updated DateTime 03/31/2024 67 /min 129 mm[Hg] 74 mm[Hg] Not Available [facility] 03/31/2024 12:03:05 Date Recorded Heart rate Systolic blood pressure Diastolic blood pressure Provider Name and Address Organization Details Last Updated DateTime 04/01/2024 73 /min 122 mm[Hg] 67 mm[Hg] Not Available [facility] 04/01/2024 09:52:04 Date Recorded Heart rate Systolic blood pressure Diastolic blood pressure Provider Name and Address Organization Details Last Updated DateTime 04/02/2024 70 /min 117 mm[Hg] 67 mm[Hg] Not Available [facility] 04/02/2024 12:14:02 Date Recorded Heart rate Systolic blood pressure Diastolic blood pressure Provider Name and Address Organization Details Last Updated DateTime 04/03/2024 80 /min 139 mm[Hg] 80 mm[Hg] Not Available [facility] 04/03/2024 09:17:01 Date Recorded Heart rate Systolic blood pressure Diastolic blood pressure Provider Name and Address Organization Details Last Updated DateTime 04/04/2024 63 /min 124 mm[Hg] 68 mm[Hg] Not Available [facility] 04/04/2024 08:55:04 Date Recorded Heart rate Systolic blood pressure Diastolic blood pressure Provider Name and Address Organization Details Last Updated DateTime 04/05/2024 65 /min 124 mm[Hg] 68 mm[Hg] Not Available [facility] 04/05/2024 09:25:03 Date Recorded Heart rate Systolic blood pressure Diastolic blood pressure Provider Name and Address Organization Details Last Updated DateTime 04/06/2024 61 /min 127 mm[Hg] 61 mm[Hg] Not Available [facility] 04/06/2024 07:06:06 Date Recorded Heart rate Systolic blood pressure Diastolic blood pressure Provider Name and Address Organization Details Last Updated DateTime 04/07/2024 69 /min 123 mm[Hg] 62 mm[Hg] Not Available [facility] 04/07/2024 10:27:07 Date Recorded Heart rate Systolic blood pressure Diastolic blood pressure Provider Name and Address Organization Details Last Updated DateTime 04/08/2024 70 /min 123 mm[Hg] 75 mm[Hg] Not Available [facility] 04/08/2024 09:20:03 Date Recorded Heart rate Systolic blood pressure Diastolic blood pressure Provider Name and Address Organization Details Last Updated DateTime 04/09/2024 61 /min 123 mm[Hg] 61 mm[Hg] Not Available [facility] 04/09/2024 09:29:07 Date Recorded Heart rate Systolic blood pressure Diastolic blood pressure Provider Name and Address Organization Details Last Updated DateTime 04/10/2024 58 /min 123 mm[Hg] 64 mm[Hg] Not Available [facility] 04/10/2024 09:15:05 Date Recorded Heart rate Systolic blood pressure Diastolic blood pressure Provider Name and Address Organization Details Last Updated DateTime 04/11/2024 62 /min 124 mm[Hg] 66 mm[Hg] Not Available [facility] 04/11/2024 10:29:03 Date Recorded Heart rate Systolic blood pressure Diastolic blood pressure Provider Name and Address Organization Details Last Updated DateTime 04/12/2024 65 /min 137 mm[Hg] 70 mm[Hg] Not Available [facility] 04/12/2024 09:06:02 Date Recorded Heart rate Systolic blood pressure Diastolic blood pressure Provider Name and Address Organization Details Last Updated DateTime 04/13/2024 67 /min 130 mm[Hg] 69 mm[Hg] Not Available [facility] 04/13/2024 09:39:01 Date Recorded Heart rate Systolic blood pressure Diastolic blood pressure Provider Name and Address Organization Details Last Updated DateTime 04/14/2024 67 /min 128 mm[Hg] 68 mm[Hg] Not Available [facility] 04/14/2024 09:32:02 Date Recorded Heart rate Systolic blood pressure Diastolic blood pressure Provider Name and Address Organization Details Last Updated DateTime 04/15/2024 56 /min 132 mm[Hg] 69 mm[Hg] Not Available [facility] 04/15/2024 09:04:05 Date Recorded Heart rate Systolic blood pressure Diastolic blood pressure Provider Name and Address Organization Details Last Updated DateTime 04/16/2024 80 /min 138 mm[Hg] 82 mm[Hg] Not Available [facility] 04/16/2024 10:14:08 Date Recorded Heart rate Systolic blood pressure Diastolic blood pressure Provider Name and Address Organization Details Last Updated DateTime 04/17/2024 63 /min 122 mm[Hg] 64 mm[Hg] Not Available [facility] 04/17/2024 10:03:04 Date Recorded Heart rate Systolic blood pressure Diastolic blood pressure Provider Name and Address Organization Details Last Updated DateTime 04/18/2024 58 /min 122 mm[Hg] 67 mm[Hg] Not Available [facility] 04/18/2024 14:44:04 Date Recorded Heart rate Heart rate Systolic blood pressure Diastolic blood pressure Systolic blood pressure Diastolic blood pressure Provider Name and Address Organization Details Last Updated DateTime 63 /min 57 /min 136 mm[Hg] 76 mm[Hg] 153 mm[Hg] 89 mm[Hg] Not Available [facility] 12:00:06 Date Recorded Heart rate Systolic blood pressure Diastolic blood pressure Provider Name and Address Organization Details Last Updated DateTime 04/21/2024 58 /min 129 mm[Hg] 69 mm[Hg] Not Available [facility] 04/21/2024 08:26:05 Date Recorded Heart rate Systolic blood pressure Diastolic blood pressure Provider Name and Address Organization Details Last Updated DateTime 04/22/2024 68 /min 141 mm[Hg] 80 mm[Hg] Not Available [facility] 04/22/2024 09:22:03 Date Recorded Heart rate Systolic blood pressure Diastolic blood pressure Provider Name and Address Organization Details Last Updated DateTime 04/23/2024 61 /min 141 mm[Hg] 76 mm[Hg] Not Available [facility] 04/23/2024 09:17:02 Date Recorded Heart rate Systolic blood pressure Diastolic blood pressure Provider Name and Address Organization Details Last Updated DateTime 04/24/2024 61 /min 129 mm[Hg] 71 mm[Hg] Not Available [facility] 04/24/2024 09:11:03 Date Recorded Heart rate Systolic blood pressure Diastolic blood pressure Provider Name and Address Organization Details Last Updated DateTime 04/25/2024 78 /min 119 mm[Hg] 71 mm[Hg] Not Available [facility] 04/25/2024 09:42:04 Date Recorded Heart rate Systolic blood pressure Diastolic blood pressure Provider Name and Address Organization Details Last Updated DateTime 04/26/2024 67 /min 138 mm[Hg] 76 mm[Hg] Not Available [facility] 04/26/2024 11:16:08 Date Recorded Heart rate Systolic blood pressure Diastolic blood pressure Provider Name and Address Organization Details Last Updated DateTime 04/27/2024 66 /min 125 mm[Hg] 73 mm[Hg] Not Available [facility] 04/27/2024 09:41:07 Date Recorded Heart rate Systolic blood pressure Diastolic blood pressure Provider Name and Address Organization Details Last Updated DateTime 04/28/2024 69 /min 122 mm[Hg] 67 mm[Hg] Not Available [facility] 04/28/2024 09:13:04 Date Recorded Heart rate Systolic blood pressure Diastolic blood pressure Provider Name and Address Organization Details Last Updated DateTime 04/29/2024 65 /min 122 mm[Hg] 79 mm[Hg] Not Available [facility] 04/29/2024 11:15:07 Date Recorded Heart rate Systolic blood pressure Diastolic blood pressure Provider Name and Address Organization Details Last Updated DateTime 04/30/2024 68 /min 119 mm[Hg] 61 mm[Hg] Not Available [facility] 04/30/2024 10:16:03 Date Recorded Heart rate Systolic blood pressure Diastolic blood pressure Provider Name and Address Organization Details Last Updated DateTime 05/01/2024 70 /min 123 mm[Hg] 67 mm[Hg] Not Available [facility] 05/01/2024 09:27:09 Date Recorded Heart rate Systolic blood pressure Diastolic blood pressure Provider Name and Address Organization Details Last Updated DateTime 05/02/2024 62 /min 123 mm[Hg] 67 mm[Hg] Not Available [facility] 05/02/2024 09:17:09 Date Recorded Heart rate Systolic blood pressure Diastolic blood pressure Provider Name and Address Organization Details Last Updated DateTime 05/03/2024 73 /min 127 mm[Hg] 67 mm[Hg] Not Available [facility] 05/03/2024 10:23:04 Date Recorded Heart rate Systolic blood pressure Diastolic blood pressure Provider Name and Address Organization Details Last Updated DateTime 05/04/2024 61 /min 127 mm[Hg] 66 mm[Hg] Not Available [facility] 05/04/2024 10:06:01 Date Recorded Heart rate Systolic blood pressure Diastolic blood pressure Provider Name and Address Organization Details Last Updated DateTime 05/05/2024 73 /min 131 mm[Hg] 74 mm[Hg] Not Available [facility] 05/05/2024 09:37:02 Date Recorded Heart rate Systolic blood pressure Diastolic blood pressure Provider Name and Address Organization Details Last Updated DateTime 05/06/2024 65 /min 135 mm[Hg] 74 mm[Hg] Not Available [facility] 05/06/2024 09:55:08 Date Recorded Heart rate Systolic blood pressure Diastolic blood pressure Provider Name and Address Organization Details Last Updated DateTime 05/07/2024 66 /min 109 mm[Hg] 59 mm[Hg] Not Available [facility] 05/07/2024 09:32:10 Date Recorded Heart rate Systolic blood pressure Diastolic blood pressure Provider Name and Address Organization Details Last Updated DateTime 05/08/2024 75 /min 113 mm[Hg] 64 mm[Hg] Not Available [facility] 05/08/2024 08:49:02 Date Recorded Body height Body mass index (BMI) Body weight Heart rate Oxygen saturation Oxygen saturation in Arterial blood by Pulse oximetry Body temperature Systolic blood pressure Diastolic blood pressure Provider Name and Address Organization Details Last Updated DateTime 168.91 cm 30.2 kg/m2 36378.5 5 g 70 /min 96 % 96 % 97.3 [degF] 129 mm[Hg] 77 mm[Hg] Maile luong [place] [facility] 10:54:58 Date Recorded Heart rate Systolic blood pressure Diastolic blood pressure Provider Name and Address Organization Details Last Updated DateTime 05/09/2024 68 /min 118 mm[Hg] 68 mm[Hg] Not Available [facility] 05/09/2024 09:19:08 Date Recorded Heart rate Systolic blood pressure Diastolic blood pressure Provider Name and Address Organization Details Last Updated DateTime 05/10/2024 75 /min 132 mm[Hg] 81 mm[Hg] Not Available [facility] 05/10/2024 11:09:02 Date Recorded Heart rate Systolic blood pressure Diastolic blood pressure Provider Name and Address Organization Details Last Updated DateTime 05/11/2024 80 /min 122 mm[Hg] 80 mm[Hg] Not Available [facility] 05/11/2024 11:57:06 Date Recorded Heart rate Systolic blood pressure Diastolic blood pressure Provider Name and Address Organization Details Last Updated DateTime 05/12/2024 68 /min 117 mm[Hg] 68 mm[Hg] Not Available [facility] 05/12/2024 08:00:05 Date Recorded Heart rate Systolic blood pressure Diastolic blood pressure Provider Name and Address Organization Details Last Updated DateTime 05/13/2024 68 /min 111 mm[Hg] 61 mm[Hg] Not Available [facility] 05/13/2024 09:20:04 Date Recorded Heart rate Systolic blood pressure Diastolic blood pressure Provider Name and Address Organization Details Last Updated DateTime 05/15/2024 69 /min 118 mm[Hg] 66 mm[Hg] Not Available [facility] 05/15/2024 09:26:08 Date Recorded Heart rate Systolic blood pressure Diastolic blood pressure Provider Name and Address Organization Details Last Updated DateTime 05/16/2024 66 /min 133 mm[Hg] 67 mm[Hg] Not Available [facility] 05/16/2024 09:12:04 Date Recorded Heart rate Systolic blood pressure Diastolic blood pressure Provider Name and Address Organization Details Last Updated DateTime 05/17/2024 59 /min 136 mm[Hg] 69 mm[Hg] Not Available [facility] 05/17/2024 09:05:03 Date Recorded Heart rate Systolic blood pressure Diastolic blood pressure Provider Name and Address Organization Details Last Updated DateTime 05/18/2024 74 /min 133 mm[Hg] 69 mm[Hg] Not Available [facility] 05/18/2024 10:29:07 Date Recorded Heart rate Systolic blood pressure Diastolic blood pressure Provider Name and Address Organization Details Last Updated DateTime 05/19/2024 62 /min 126 mm[Hg] 69 mm[Hg] Not Available [facility] 05/19/2024 08:03:04 Date Recorded Heart rate Systolic blood pressure Diastolic blood pressure Provider Name and Address Organization Details Last Updated DateTime 05/20/2024 70 /min 130 mm[Hg] 69 mm[Hg] Not Available [facility] 05/20/2024 09:01:04 Date Recorded Heart rate Systolic blood pressure Diastolic blood pressure Provider Name and Address Organization Details Last Updated DateTime 05/21/2024 68 /min 134 mm[Hg] 79 mm[Hg] Not Available [facility] 05/21/2024 09:59:05 Date Recorded Heart rate Systolic blood pressure Diastolic blood pressure Provider Name and Address Organization Details Last Updated DateTime 05/22/2024 66 /min 115 mm[Hg] 66 mm[Hg] Not Available [facility] 05/22/2024 08:01:18 Date Recorded Heart rate Systolic blood pressure Diastolic blood pressure Provider Name and Address Organization Details Last Updated DateTime 05/23/2024 66 /min 132 mm[Hg] 72 mm[Hg] Not Available [facility] 05/23/2024 09:25:07 Date Recorded Heart rate Systolic blood pressure Diastolic blood pressure Provider Name and Address Organization Details Last Updated DateTime 05/24/2024 67 /min 132 mm[Hg] 71 mm[Hg] Not Available [facility] 05/24/2024 09:22:07 Date Recorded Heart rate Systolic blood pressure Diastolic blood pressure Provider Name and Address Organization Details Last Updated DateTime 05/25/2024 74 /min 129 mm[Hg] 72 mm[Hg] Not Available [facility] 05/25/2024 11:25:06 Date Recorded Heart rate Systolic blood pressure Diastolic blood pressure Provider Name and Address Organization Details Last Updated DateTime 05/26/2024 86 /min 135 mm[Hg] 82 mm[Hg] Not Available [facility] 05/26/2024 10:05:01 Date Recorded Body height Provider Name an d Address Organization Details Last Updated DateTime 05/26/2024 168.91 cm Tatiana Mott PA-C [id number] [id number], [place], [id number], [facility] 05/26/2024 15:02:04 Date Recorded Heart rate Systolic blood pressure Diastolic blood pressure Provider Name and Address Organization Details Last Updated DateTime 05/27/2024 82 /min 120 mm[Hg] 78 mm[Hg] Not Available [facility] 05/27/2024 09:52:05 Date Recorded Heart rate Systolic blood pressure Diastolic blood pressure Provider Name and Address Organization Details Last Updated DateTime 05/28/2024 74 /min 120 mm[Hg] 76 mm[Hg] Not Available [facility] 05/28/2024 09:55:05 Date Recorded Heart rate Systolic blood pressure Diastolic blood pressure Provider Name and Address Organization Details Last Updated DateTime 05/29/2024 69 /min 107 mm[Hg] 72 mm[Hg] Not Available [facility] 05/29/2024 11:24:06 Date Recorded Heart rate Systolic blood pressure Diastolic blood pressure Provider Name and Address Organization Details Last Updated DateTime 05/30/2024 74 /min 113 mm[Hg] 72 mm[Hg] Not Available [facility] 05/30/2024 10:11:08 Date Recorded Heart rate Systolic blood pressure Diastolic blood pressure Provider Name and Address Organization Details Last Updated DateTime 05/31/2024 63 /min 114 mm[Hg] 67 mm[Hg] Not Available [facility] 05/31/2024 09:10:04 Date Recorded Heart rate Systolic blood pressure Diastolic blood pressure Provider Name and Address Organization Details Last Updated DateTime 06/01/2024 66 /min 125 mm[Hg] 70 mm[Hg] Not Available [facility] 06/01/2024 09:09:03 Date Recorded Heart rate Systolic blood pressure Diastolic blood pressure Provider Name and Address Organization Details Last Updated DateTime 06/02/2024 57 /min 119 mm[Hg] 69 mm[Hg] Not Available [facility] 06/02/2024 09:06:06 Date Recorded Heart rate Systolic blood pressure Diastolic blood pressure Provider Name and Address Organization Details Last Updated DateTime 06/03/2024 66 /min 119 mm[Hg] 65 mm[Hg] Not Available [facility] 06/03/2024 09:11:03 Date Recorded Heart rate Systolic blood pressure Diastolic blood pressure Provider Name and Address Organization Details Last Updated DateTime 06/04/2024 68 /min 119 mm[Hg] 72 mm[Hg] Not Available [facility] 06/04/2024 11:06:08 Date Recorded Heart rate Systolic blood pressure Diastolic blood pressure Provider Name and Address Organization Details Last Updated DateTime 06/05/2024 65 /min 118 mm[Hg] 60 mm[Hg] Not Available [facility] 06/05/2024 10:00:02 Date Recorded Heart rate Systolic blood pressure Diastolic blood pressure Provider Name and Address Organization Details Last Updated DateTime 06/06/2024 70 /min 125 mm[Hg] 72 mm[Hg] Not Available [facility] 06/06/2024 08:49:04 Date Recorded Heart rate Systolic blood pressure Diastolic blood pressure Provider Name and Address Organization Details Last Updated DateTime 06/08/2024 69 /min 143 mm[Hg] 74 mm[Hg] Not Available [facility] 06/08/2024 16:42:02 Date Recorded Heart rate Systolic blood pressure Diastolic blood pressure Provider Name and Address Organization Details Last Updated DateTime 06/09/2024 62 /min 137 mm[Hg] 74 mm[Hg] Not Available [facility] 06/09/2024 06:27:03 Date Recorded Heart rate Systolic blood pressure Diastolic blood pressure Provider Name and Address Organization Details Last Updated DateTime 06/10/2024 69 /min 120 mm[Hg] 67 mm[Hg] Not Available [facility] 06/10/2024 09:32:03 Date Recorded Heart rate Systolic blood pressure Diastolic blood pressure Provider Name and Address Organization Details Last Updated DateTime 06/11/2024 69 /min 120 mm[Hg] 71 mm[Hg] Not Available [facility] 06/11/2024 12:12:07 Date Recorded Heart rate Systolic blood pressure Diastolic blood pressure Provider Name and Address Organization Details Last Updated DateTime 06/12/2024 79 /min 120 mm[Hg] 71 mm[Hg] Not Available [facility] 06/12/2024 09:51:02 Date Recorded Heart rate Systolic blood pressure Diastolic blood pressure Provider Name and Address Organization Details Last Updated DateTime 06/13/2024 75 /min 126 mm[Hg] 71 mm[Hg] Not Available [facility] 06/13/2024 09:51:08 Date Recorded Heart rate Heart rate Heart rate Systolic blood pressure Diastolic blood pressure Systolic blood pressure Diastolic blood pressure Systolic blood pressure Diastolic blood pressure Provider Name and Address Organization Details Last Updated DateTime 92 /min 68 /min 84 /min 112 mm[Hg] 74 mm[Hg] 113 mm[Hg] 58 mm[Hg] 115 mm[Hg] 80 mm[Hg] Not Available [facility] 12:14:06 Date Recorded Heart rate Systolic blood pressure Diastolic blood pressure Provider Name and Address Organization Details Last Updated DateTime 06/15/2024 62 /min 137 mm[Hg] 75 mm[Hg] Not Available [facility] 06/15/2024 09:24:09 Date Recorded Heart rate Systolic blood pressure Diastolic blood pressure Provider Name and Address Organization Details Last Updated DateTime 06/16/2024 71 /min 126 mm[Hg] 71 mm[Hg] Not Available [facility] 06/16/2024 07:29:05 Date Recorded Heart rate Systolic blood pressure Diastolic blood pressure Provider Name and Address Organization Details Last Updated DateTime 06/17/2024 69 /min 155 mm[Hg] 88 mm[Hg] Not Available [facility] 06/18/2024 09:47:04 Date Recorded Heart rate Systolic blood pressure Diastolic blood pressure Provider Name and Address Organization Details Last Updated DateTime 06/18/2024 65 /min 140 mm[Hg] 69 mm[Hg] Not Available [facility] 06/18/2024 09:47:06 Date Recorded Heart rate Systolic blood pressure Diastolic blood pressure Provider Name and Address Organization Details Last Updated DateTime 06/19/2024 80 /min 113 mm[Hg] 68 mm[Hg] Not Available [facility] 06/19/2024 17:11:02 Date Recorded Heart rate Systolic blood pressure Diastolic blood pressure Provider Name and Address Organization Details Last Updated DateTime 06/20/2024 70 /min 119 mm[Hg] 68 mm[Hg] Not Available [facility] 06/20/2024 09:59:06 Date Recorded Heart rate Systolic blood pressure Diastolic blood pressure Provider Name and Address Organization Details Last Updated DateTime 06/21/2024 67 /min 159 mm[Hg] 84 mm[Hg] Not Available [facility] 06/21/2024 19:01:07 Date Recorded Heart rate Systolic blood pressure Diastolic blood pressure Provider Name and Address Organization Details Last Updated DateTime 06/22/2024 78 /min 120 mm[Hg] 65 mm[Hg] Not Available [facility] 06/22/2024 14:09:05 Date Recorded Heart rate Systolic blood pressure Diastolic blood pressure Provider Name and Address Organization Details Last Updated DateTime 06/23/2024 68 /min 118 mm[Hg] 63 mm[Hg] Not Available [facility] 06/24/2024 10:03:03 Date Recorded Heart rate Systolic blood pressure Diastolic blood pressure Provider Name and Address Organization Details Last Updated DateTime 06/24/2024 69 /min 134 mm[Hg] 69 mm[Hg] Not Available [facility] 06/24/2024 10:03:10 Date Recorded Heart rate Systolic blood pressure Diastolic blood pressure Provider Name and Address Organization Details Last Updated DateTime 06/25/2024 68 /min 134 mm[Hg] 69 mm[Hg] Not Available [facility] 06/25/2024 10:01:03 Date Recorded Heart rate Systolic blood pressure Diastolic blood pressure Provider Name and Address Organization Details Last Updated DateTime 06/26/2024 62 /min 139 mm[Hg] 73 mm[Hg] Not Available [facility] 06/26/2024 09:19:08 Date Recorded Heart rate Systolic blood pressure Diastolic blood pressure Provider Name and Address Organization Details Last Updated DateTime 06/27/2024 61 /min 135 mm[Hg] 73 mm[Hg] Not Available [facility] 06/27/2024 09:15:08 Date Recorded Heart rate Systolic blood pressure Diastolic blood pressure Provider Name and Address Organization Details Last Updated DateTime 06/28/2024 71 /min 138 mm[Hg] 74 mm[Hg] Not Available [facility] 06/28/2024 08:46:04 Date Recorded Heart rate Systolic blood pressure Diastolic blood pressure Provider Name and Address Organization Details Last Updated DateTime 06/29/2024 66 /min 131 mm[Hg] 70 mm[Hg] Not Available [facility] 06/29/2024 08:10:05 Date Recorded Heart rate Heart rate Systolic blood pressure Diastolic blood pressure Systolic blood pressure Diastolic blood pressure Provider Name and Address Organization Details Last Updated DateTime 68 /min 68 /min 127 mm[Hg] 65 mm[Hg] 152 mm[Hg] 87 mm[Hg] Not Available [facility] 09:58:08 Date Recorded Heart rate Systolic blood pressure Diastolic blood pressure Provider Name and Address Organization Details Last Updated DateTime 07/01/2024 67 /min 128 mm[Hg] 68 mm[Hg] Not Available [facility] 07/01/2024 08:58:02 Date Recorded Heart rate Systolic blood pressure Diastolic blood pressure Provider Name and Address Organization Details Last Updated DateTime 07/02/2024 66 /min 151 mm[Hg] 79 mm[Hg] Not Available [facility] 07/02/2024 18:33:04 Date Recorded Heart rate Systolic blood pressure Diastolic blood pressure Provider Name and Address Organization Details Last Updated DateTime 07/03/2024 71 /min 144 mm[Hg] 79 mm[Hg] Not Available [facility] 07/03/2024 12:36:09 Date Recorded Heart rate Systolic blood pressure Diastolic blood pressure Provider Name and Address Organization Details Last Updated DateTime 07/04/2024 61 /min 134 mm[Hg] 69 mm[Hg] Not Available [facility] 07/04/2024 09:46:03 Date Recorded Heart rate Systolic blood pressure Diastolic blood pressure Provider Name and Address Organization Details Last Updated DateTime 07/05/2024 74 /min 140 mm[Hg] 76 mm[Hg] Not Available [facility] 07/05/2024 10:00:02 Date Recorded Heart rate Systolic blood pressure Diastolic blood pressure Provider Name and Address Organization Details Last Updated DateTime 07/06/2024 73 /min 141 mm[Hg] 81 mm[Hg] Not Available [facility] 07/06/2024 12:05:02 Date Recorded Heart rate Systolic blood pressure Diastolic blood pressure Provider Name and Address Organization Details Last Updated DateTime 07/07/2024 62 /min 145 mm[Hg] 83 mm[Hg] Not Available [facility] 07/07/2024 12:49:03 Date Recorded Heart rate Systolic blood pressure Diastolic blood pressure Provider Name and Address Organization Details Last Updated DateTime 07/08/2024 75 /min 138 mm[Hg] 83 mm[Hg] Not Available [facility] 07/08/2024 16:48:03 Date Recorded Heart rate Systolic blood pressure Diastolic blood pressure Provider Name and Address Organization Details Last Updated DateTime 07/09/2024 74 /min 136 mm[Hg] 81 mm[Hg] Not Available [facility] 07/09/2024 12:27:04 Date Recorded Heart rate Systolic blood pressure Diastolic blood pressure Provider Name and Address Organization Details Last Updated DateTime 07/10/2024 76 /min 118 mm[Hg] 67 mm[Hg] Not Available [facility] 07/10/2024 10:07:06 Date Recorded Heart rate Systolic blood pressure Diastolic blood pressure Provider Name and Address Organization Details Last Updated DateTime 07/11/2024 67 /min 137 mm[Hg] 71 mm[Hg] Not Available [facility] 07/11/2024 09:12:03 Date Recorded Heart rate Systolic blood pressure Diastolic blood pressure Provider Name and Address Organization Details Last Updated DateTime 07/12/2024 68 /min 147 mm[Hg] 73 mm[Hg] Not Available [facility] 07/12/2024 09:14:05 Date Recorded Heart rate Systolic blood pressure Diastolic blood pressure Provider Name and Address Organization Details Last Updated DateTime 07/13/2024 71 /min 140 mm[Hg] 78 mm[Hg] Not Available [facility] 07/14/2024 09:26:05 Date Recorded Heart rate Systolic blood pressure Diastolic blood pressure Provider Name and Address Organization Details Last Updated DateTime 07/14/2024 70 /min 124 mm[Hg] 63 mm[Hg] Not Available [facility] 07/14/2024 09:26:11 Date Recorded Heart rate Systolic blood pressure Diastolic blood pressure Provider Name and Address Organization Details Last Updated DateTime 07/15/2024 70 /min 125 mm[Hg] 63 mm[Hg] Not Available [facility] 07/15/2024 09:10:02 Date Recorded Heart rate Systolic blood pressure Diastolic blood pressure Provider Name and Address Organization Details Last Updated DateTime 07/16/2024 71 /min 131 mm[Hg] 69 mm[Hg] Not Available [facility] 07/16/2024 09:33:03 Date Recorded Heart rate Systolic blood pressure Diastolic blood pressure Provider Name and Address Organization Details Last Updated DateTime 07/17/2024 67 /min 127 mm[Hg] 69 mm[Hg] Not Available [facility] 07/17/2024 09:10:14 Date Recorded Heart rate Systolic blood pressure Diastolic blood pressure Provider Name and Address Organization Details Last Updated DateTime 07/18/2024 67 /min 141 mm[Hg] 73 mm[Hg] Not Available [facility] 07/18/2024 08:29:02 Date Recorded Heart rate Systolic blood pressure Diastolic blood pressure Provider Name and Address Organization Details Last Updated DateTime 07/20/2024 77 /min 141 mm[Hg] 80 mm[Hg] Not Available [facility] 07/20/2024 14:07:06 Date Recorded Heart rate Systolic blood pressure Diastolic blood pressure Provider Name and Address Organization Details Last Updated DateTime 07/21/2024 72 /min 156 mm[Hg] 84 mm[Hg] Not Available [facility] 07/21/2024 13:34:07 Date Recorded Heart rate Systolic blood pressure Diastolic blood pressure Provider Name and Address Organization Details Last Updated DateTime 07/22/2024 75 /min 132 mm[Hg] 67 mm[Hg] Not Available [facility] 07/22/2024 09:25:03 Date Recorded Heart rate Systolic blood pressure Diastolic blood pressure Provider Name and Address Organization Details Last Updated DateTime 07/23/2024 75 /min 147 mm[Hg] 77 mm[Hg] Not Available [facility] 07/23/2024 13:34:02 Date Recorded Heart rate Systolic blood pressure Diastolic blood pressure Provider Name and Address Organization Details Last Updated DateTime 07/24/2024 68 /min 147 mm[Hg] 77 mm[Hg] Not Available [facility] 07/24/2024 09:44:07 Date Recorded Heart rate Systolic blood pressure Diastolic blood pressure Provider Name and Address Organization Details Last Updated DateTime 07/25/2024 68 /min 130 mm[Hg] 72 mm[Hg] Not Available [facility] 07/25/2024 09:45:03 Date Recorded Heart rate Systolic blood pressure Diastolic blood pressure Provider Name and Address Organization Details Last Updated DateTime 07/26/2024 61 /min 150 mm[Hg] 78 mm[Hg] Not Available [facility] 07/26/2024 12:03:01 Date Recorded Heart rate Systolic blood pressure Diastolic blood pressure Provider Name and Address Organization Details Last Updated DateTime 07/27/2024 67 /min 130 mm[Hg] 74 mm[Hg] Not Available [facility] 07/27/2024 09:42:06 Date Recorded Heart rate Systolic blood pressure Diastolic blood pressure Provider Name and Address Organization Details Last Updated DateTime 07/28/2024 77 /min 131 mm[Hg] 83 mm[Hg] Not Available [facility] 07/28/2024 10:49:06 Date Recorded Heart rate Systolic blood pressure Diastolic blood pressure Provider Name and Address Organization Details Last Updated DateTime 07/29/2024 66 /min 131 mm[Hg] 70 mm[Hg] Not Available [facility] 07/29/2024 09:20:07 Date Recorded Heart rate Systolic blood pressure Diastolic blood pressure Provider Name and Address Organization Details Last Updated DateTime 07/30/2024 70 /min 135 mm[Hg] 74 mm[Hg] Not Available [facility] 07/30/2024 11:51:06 Date Recorded Heart rate Systolic blood pressure Diastolic blood pressure Provider Name and Address Organization Details Last Updated DateTime 07/31/2024 63 /min 138 mm[Hg] 74 mm[Hg] Not Available [facility] 07/31/2024 17:13:02 Date Recorded Heart rate Systolic blood pressure Diastolic blood pressure Provider Name and Address Organization Details Last Updated DateTime 08/01/2024 75 /min 124 mm[Hg] 74 mm[Hg] Not Available [facility] 08/01/2024 13:29:06 Date Recorded Heart rate Systolic blood pressure Diastolic blood pressure Provider Name and Address Organization Details Last Updated DateTime 08/02/2024 78 /min 126 mm[Hg] 74 mm[Hg] Not Available [facility] 08/02/2024 16:43:04 Date Recorded Heart rate Systolic blood pressure Diastolic blood pressure Provider Name and Address Organization Details Last Updated DateTime 08/03/2024 72 /min 127 mm[Hg] 68 mm[Hg] Not Available [facility] 08/03/2024 09:53:09 Date Recorded Heart rate Systolic blood pressure Diastolic blood pressure Provider Name and Address Organization Details Last Updated DateTime 08/04/2024 76 /min 132 mm[Hg] 72 mm[Hg] Not Available [facility] 08/04/2024 09:27:07 Date Recorded Heart rate Systolic blood pressure Diastolic blood pressure Provider Name and Address Organization Details Last Updated DateTime 08/05/2024 74 /min 127 mm[Hg] 68 mm[Hg] Not Available [facility] 08/05/2024 09:41:03 Date Recorded Heart rate Systolic blood pressure Diastolic blood pressure Provider Name and Address Organization Details Last Updated DateTime 08/06/2024 76 /min 120 mm[Hg] 66 mm[Hg] Not Available [facility] 08/06/2024 16:45:06 Date Recorded Heart rate Systolic blood pressure Diastolic blood pressure Provider Name and Address Organization Details Last Updated DateTime 08/07/2024 68 /min 127 mm[Hg] 69 mm[Hg] Not Available [facility] 08/07/2024 07:32:06 Date Recorded Heart rate Systolic blood pressure Diastolic blood pressure Provider Name and Address Organization Details Last Updated DateTime 08/08/2024 78 /min 124 mm[Hg] 69 mm[Hg] Not Available [facility] 08/08/2024 07:33:06 Date Recorded Heart rate Systolic blood pressure Diastolic blood pressure Provider Name and Address Organization Details Last Updated DateTime 08/09/2024 74 /min 129 mm[Hg] 64 mm[Hg] Not Available [facility] 08/09/2024 09:15:04 Date Recorded Heart rate Systolic blood pressure Diastolic blood pressure Provider Name and Address Organization Details Last Updated DateTime 08/10/2024 71 /min 130 mm[Hg] 75 mm[Hg] Not Available [facility] 08/10/2024 09:12:05 Date Recorded Heart rate Systolic blood pressure Diastolic blood pressure Provider Name and Address Organization Details Last Updated DateTime 08/11/2024 70 /min 133 mm[Hg] 70 mm[Hg] Not Available [facility] 08/11/2024 09:13:06 Date Recorded Heart rate Systolic blood pressure Diastolic blood pressure Provider Name and Address Organization Details Last Updated DateTime 08/12/2024 74 /min 132 mm[Hg] 70 mm[Hg] Not Available [facility] 08/12/2024 13:20:03 Date Recorded Heart rate Systolic blood pressure Diastolic blood pressure Provider Name and Address Organization Details Last Updated DateTime 08/13/2024 63 /min 142 mm[Hg] 75 mm[Hg] Not Available [facility] 08/13/2024 10:37:07 Date Recorded Heart rate Systolic blood pressure Diastolic blood pressure Provider Name and Address Organization Details Last Updated DateTime 08/14/2024 67 /min 131 mm[Hg] 75 mm[Hg] Not Available [facility] 08/14/2024 12:54:06 Date Recorded Heart rate Systolic blood pressure Diastolic blood pressure Provider Name and Address Organization Details Last Updated DateTime 08/15/2024 67 /min 134 mm[Hg] 75 mm[Hg] Not Available [facility] 08/15/2024 08:09:05 Date Recorded Heart rate Systolic blood pressure Diastolic blood pressure Provider Name and Address Organization Details Last Updated DateTime 08/16/2024 74 /min 129 mm[Hg] 73 mm[Hg] Not Available [facility] 08/16/2024 09:20:02 Date Recorded Heart rate Systolic blood pressure Diastolic blood pressure Provider Name and Address Organization Details Last Updated DateTime 08/17/2024 74 /min 129 mm[Hg] 83 mm[Hg] Not Available [facility] 08/17/2024 09:19:06 Date Recorded Heart rate Systolic blood pressure Diastolic blood pressure Provider Name and Address Organization Details Last Updated DateTime 08/18/2024 75 /min 134 mm[Hg] 77 mm[Hg] Not Available [facility] 08/18/2024 09:30:02 Date Recorded Heart rate Systolic blood pressure Diastolic blood pressure Provider Name and Address Organization Details Last Updated DateTime 08/19/2024 67 /min 134 mm[Hg] 67 mm[Hg] Not Available [facility] 08/19/2024 08:54:08 Date Recorded Heart rate Systolic blood pressure Diastolic blood pressure Provider Name and Address Organization Details Last Updated DateTime 08/20/2024 79 /min 128 mm[Hg] 67 mm[Hg] Not Available [facility] 08/20/2024 11:03:04 Date Recorded Heart rate Systolic blood pressure Diastolic blood pressure Provider Name and Address Organization Details Last Updated DateTime 08/22/2024 66 /min 143 mm[Hg] 77 mm[Hg] Not Available [facility] 08/22/2024 10:18:09 Date Recorded Heart rate Systolic blood pressure Diastolic blood pressure Provider Name and Address Organization Details Last Updated DateTime 08/23/2024 57 /min 143 mm[Hg] 77 mm[Hg] Not Available [facility] 08/23/2024 10:03:04 Date Recorded Heart rate Systolic blood pressure Diastolic blood pressure Provider Name and Address Organization Details Last Updated DateTime 08/24/2024 59 /min 146 mm[Hg] 73 mm[Hg] Not Available [facility] 08/24/2024 09:16:02 Date Recorded Heart rate Systolic blood pressure Diastolic blood pressure Provider Name and Address Organization Details Last Updated DateTime 08/25/2024 70 /min 120 mm[Hg] 67 mm[Hg] Not Available [facility] 08/25/2024 09:38:03 Date Recorded Heart rate Heart rate Systolic blood pressure Diastolic blood pressure Systolic blood pressure Diastolic blood pressure Provider Name and Address Organization Details Last Updated DateTime 65 /min 78 /min 157 mm[Hg] 82 mm[Hg] 144 mm[Hg] 79 mm[Hg] Not Available [facility] 10:15:07 Date Recorded Heart rate Systolic blood pressure Diastolic blood pressure Provider Name and Address Organization Details Last Updated DateTime 08/27/2024 69 /min 139 mm[Hg] 76 mm[Hg] Not Available [facility] 08/27/2024 09:13:04 Date Recorded Heart rate Systolic blood pressure Diastolic blood pressure Provider Name and Address Organization Details Last Updated DateTime 08/28/2024 69 /min 146 mm[Hg] 80 mm[Hg] Not Available [facility] 08/28/2024 09:37:06 Date Recorded Heart rate Systolic blood pressure Diastolic blood pressure Provider Name and Address Organization Details Last Updated DateTime 08/29/2024 65 /min 143 mm[Hg] 79 mm[Hg] Not Available [facility] 08/29/2024 09:18:03 Date Recorded Heart rate Systolic blood pressure Diastolic blood pressure Provider Name and Address Organization Details Last Updated DateTime 08/30/2024 73 /min 147 mm[Hg] 78 mm[Hg] Not Available [facility] 08/30/2024 18:19:03 Date Recorded Heart rate Systolic blood pressure Diastolic blood pressure Provider Name and Address Organization Details Last Updated DateTime 08/31/2024 68 /min 141 mm[Hg] 76 mm[Hg] Not Available [facility] 08/31/2024 09:31:09 Date Recorded Heart rate Systolic blood pressure Diastolic blood pressure Provider Name and Address Organization Details Last Updated DateTime 09/01/2024 66 /min 136 mm[Hg] 72 mm[Hg] Not Available [facility] 09/01/2024 09:09:01 Date Recorded Heart rate Systolic blood pressure Diastolic blood pressure Provider Name and Address Organization Details Last Updated DateTime 09/02/2024 60 /min 138 mm[Hg] 70 mm[Hg] Not Available [facility] 09/02/2024 10:15:10 Date Recorded Heart rate Systolic blood pressure Diastolic blood pressure Provider Name and Address Organization Details Last Updated DateTime 09/04/2024 62 /min 143 mm[Hg] 73 mm[Hg] Not Available [facility] 09/04/2024 10:06:09 Date Recorded Heart rate Heart rate Systolic blood pressure Diastolic blood pressure Systolic blood pressure Diastolic blood pressure Provider Name and Address Organization Details Last Updated DateTime 4 62 /min 63 /min 153 mm[Hg] 77 mm[Hg] 157 mm[Hg] 91 mm[Hg] Not Available [facility] 10:04:05 Date Recorded Heart rate Systolic blood pressure Diastolic blood pressure Provider Name and Address Organization Details Last Updated DateTime 09/06/2024 68 /min 138 mm[Hg] 68 mm[Hg] Not Available [facility] 09/06/2024 07:40:06 Date Recorded Heart rate Systolic blood pressure Diastolic blood pressure Provider Name and Address Organization Details Last Updated DateTime 09/07/2024 68 /min 151 mm[Hg] 73 mm[Hg] Not Available [facility] 09/07/2024 09:21:09 Date Recorded Heart rate Heart rate Systolic blood pressure Diastolic blood pressure Systolic blood pressure Diastolic blood pressure Provider Name and Address Organization Details Last Updated DateTime 4 80 /min 66 /min 156 mm[Hg] 88 mm[Hg] 153 mm[Hg] 74 mm[Hg] Not Available [facility] 10:07:10 Date Recorded Heart rate Systolic blood pressure Diastolic blood pressure Provider Name and Address Organization Details Last Updated DateTime 09/09/2024 62 /min 153 mm[Hg] 84 mm[Hg] Not Available [facility] 09/09/2024 10:02:06 Date Recorded Heart rate Systolic blood pressure Diastolic blood pressure Provider Name and Address Organization Details Last Updated DateTime 09/10/2024 80 /min 147 mm[Hg] 84 mm[Hg] Not Available [facility] 09/10/2024 09:41:08 Date Recorded Heart rate Systolic blood pressure Diastolic blood pressure Provider Name and Address Organization Details Last Updated DateTime 09/11/2024 65 /min 142 mm[Hg] 81 mm[Hg] Not Available [facility] 09/11/2024 09:03:04 Date Recorded Heart rate Systolic blood pressure Diastolic blood pressure Provider Name and Address Organization Details Last Updated DateTime 09/12/2024 68 /min 142 mm[Hg] 79 mm[Hg] Not Available [facility] 09/12/2024 09:14:05 Date Recorded Heart rate Systolic blood pressure Diastolic blood pressure Provider Name and Address Organization Details Last Updated DateTime 09/13/2024 66 /min 139 mm[Hg] 74 mm[Hg] Not Available [facility] 09/13/2024 09:17:07 Date Recorded Heart rate Systolic blood pressure Diastolic blood pressure Provider Name and Address Organization Details Last Updated DateTime 09/14/2024 71 /min 126 mm[Hg] 73 mm[Hg] Not Available [facility] 09/14/2024 08:22:04 Date Recorded Heart rate Systolic blood pressure Diastolic blood pressure Provider Name and Address Organization Details Last Updated DateTime 09/15/2024 79 /min 129 mm[Hg] 73 mm[Hg] Not Available [facility] 09/15/2024 13:34:03 Date Recorded Heart rate Systolic blood pressure Diastolic blood pressure Provider Name and Address Organization Details Last Updated DateTime 09/16/2024 70 /min 132 mm[Hg] 73 mm[Hg] Not Available [facility] 09/16/2024 13:15:04 Date Recorded Heart rate Systolic blood pressure Diastolic blood pressure Provider Name and Address Organization Details Last Updated DateTime 09/17/2024 67 /min 134 mm[Hg] 77 mm[Hg] Not Available [facility] 09/17/2024 09:21:03 Date Recorded Heart rate Systolic blood pressure Diastolic blood pressure Provider Name and Address Organization Details Last Updated DateTime 09/18/2024 69 /min 134 mm[Hg] 72 mm[Hg] Not Available [facility] 09/18/2024 09:48:03 Date Recorded Heart rate Systolic blood pressure Diastolic blood pressure Provider Name and Address Organization Details Last Updated DateTime 09/20/2024 72 /min 134 mm[Hg] 71 mm[Hg] Not Available [facility] 09/21/2024 10:09:05 Date Recorded Heart rate Systolic blood pressure Diastolic blood pressure Provider Name and Address Organization Details Last Updated DateTime 09/19/2024 67 /min 134 mm[Hg] 71 mm[Hg] Not Available [facility] 09/21/2024 10:09:07 Date Recorded Heart rate Systolic blood pressure Diastolic blood pressure Provider Name and Address Organization Details Last Updated DateTime 09/21/2024 61 /min 134 mm[Hg] 71 mm[Hg] Not Available [facility] 09/21/2024 10:09:08 Date Recorded Heart rate Systolic blood pressure Diastolic blood pressure Provider Name and Address Organization Details Last Updated DateTime 09/22/2024 89 /min 134 mm[Hg] 78 mm[Hg] Not Available [facility] 09/22/2024 07:41:02 Date Recorded Heart rate Systolic blood pressure Diastolic blood pressure Provider Name and Address Organization Details Last Updated DateTime 09/23/2024 72 /min 130 mm[Hg] 72 mm[Hg] Not Available [facility] 09/23/2024 11:07:04 Date Recorded Heart rate Systolic blood pressure Diastolic blood pressure Provider Name and Address Organization Details Last Updated DateTime 09/24/2024 71 /min 125 mm[Hg] 72 mm[Hg] Not Available [facility] 09/24/2024 11:39:03 Date Recorded Heart rate Systolic blood pressure Diastolic blood pressure Provider Name and Address Organization Details Last Updated DateTime 09/25/2024 70 /min 145 mm[Hg] 72 mm[Hg] Not Available [facility] 09/25/2024 09:01:04 Date Recorded Heart rate Systolic blood pressure Diastolic blood pressure Provider Name and Address Organization Details Last Updated DateTime 09/26/2024 81 /min 140 mm[Hg] 72 mm[Hg] Not Available [facility] 09/26/2024 09:20:03 Date Recorded Heart rate Systolic blood pressure Diastolic blood pressure Provider Name and Address Organization Details Last Updated DateTime 09/27/2024 75 /min 142 mm[Hg] 76 mm[Hg] Not Available [facility] 09/27/2024 07:02:07 Date Recorded Heart rate Systolic blood pressure Diastolic blood pressure Provider Name and Address Organization Details Last Updated DateTime 09/29/2024 65 /min 146 mm[Hg] 76 mm[Hg] Not Available [facility] 09/29/2024 13:37:03 Date Recorded Heart rate Systolic blood pressure Diastolic blood pressure Provider Name and Address Organization Details Last Updated DateTime 10/01/2024 72 /min 124 mm[Hg] 70 mm[Hg] Not Available [facility] 10/01/2024 10:54:08 Date Recorded Heart rate Systolic blood pressure Diastolic blood pressure Provider Name and Address Organization Details Last Updated DateTime 10/02/2024 76 /min 129 mm[Hg] 72 mm[Hg] Not Available [facility] 10/02/2024 09:20:01 Date Recorded Heart rate Systolic blood pressure Diastolic blood pressure Provider Name and Address Organization Details Last Updated DateTime 10/03/2024 74 /min 134 mm[Hg] 72 mm[Hg] Not Available [facility] 10/03/2024 07:34:08 Date Recorded Body height Body mass index (BMI) Body weight Heart rate Oxygen saturation Oxygen saturation in Arterial blood by Pulse oximetry Body temperature Systolic blood pressure Diastolic blood pressure Provider Name and Address Organization Details Last Updated DateTime 168.91 cm 31.5 kg/m2 26958.2 9 g 82 /min 97 % 97 % 97.6 [degF] 136 mm[Hg] 80 mm[Hg] Tam de leon MA [facility] 10:24:58 Date Recorded Heart rate Systolic blood pressure Diastolic blood pressure Provider Name and Address Organization Details Last Updated DateTime 10/04/2024 68 /min 151 mm[Hg] 86 mm[Hg] Not Available [facility] 10/04/2024 11:10:01 Date Recorded Heart rate Systolic blood pressure Diastolic blood pressure Provider Name and Address Organization Details Last Updated DateTime 10/05/2024 76 /min 148 mm[Hg] 84 mm[Hg] Not Available [facility] 10/05/2024 09:53:05 Date Recorded Heart rate Heart rate Systolic blood pressure Diastolic blood pressure Systolic blood pressure Diastolic blood pressure Provider Name and Address Organization Details Last Updated DateTime 74 /min 68 /min 152 mm[Hg] 86 mm[Hg] 135 mm[Hg] 75 mm[Hg] Not Available [facility] 09:44:05 Date Recorded Heart rate Systolic blood pressure Diastolic blood pressure Provider Name and Address Organization Details Last Updated DateTime 10/09/2024 67 /min 131 mm[Hg] 58 mm[Hg] Not Available [facility] 10/09/2024 09:36:04 Date Recorded Heart rate Systolic blood pressure Diastolic blood pressure Provider Name and Address Organization Details Last Updated DateTime 10/07/2024 70 /min 149 mm[Hg] 76 mm[Hg] Not Available [facility] 10/09/2024 09:36:06 Date Recorded Heart rate Systolic blood pressure Diastolic blood pressure Provider Name and Address Organization Details Last Updated DateTime 10/12/2024 72 /min 137 mm[Hg] 75 mm[Hg] Not Available [facility] 10/12/2024 09:26:05 Date Recorded Heart rate Systolic blood pressure Diastolic blood pressure Provider Name and Address Organization Details Last Updated DateTime 10/13/2024 74 /min 137 mm[Hg] 75 mm[Hg] Not Available [facility] 10/13/2024 09:12:05 Date Recorded Heart rate Systolic blood pressure Diastolic blood pressure Provider Name and Address Organization Details Last Updated DateTime 10/14/2024 67 /min 132 mm[Hg] 68 mm[Hg] Not Available [facility] 10/14/2024 09:08:06 Date Recorded Heart rate Systolic blood pressure Diastolic blood pressure Provider Name and Address Organization Details Last Updated DateTime 10/15/2024 69 /min 132 mm[Hg] 72 mm[Hg] Not Available [facility] 10/15/2024 10:09:07 Date Recorded Heart rate Systolic blood pressure Diastolic blood pressure Provider Name and Address Organization Details Last Updated DateTime 10/17/2024 80 /min 137 mm[Hg] 77 mm[Hg] Not Available [facility] 10/17/2024 09:16:05 Date Recorded Heart rate Systolic blood pressure Diastolic blood pressure Provider Name and Address Organization Details Last Updated DateTime 10/18/2024 65 /min 134 mm[Hg] 64 mm[Hg] Not Available [facility] 10/18/2024 09:28:05 Date Recorded Heart rate Heart rate Systolic blood pressure Diastolic blood pressure Systolic blood pressure Diastolic blood pressure Provider Name and Address Organization Details Last Updated DateTime 77 /min 68 /min 147 mm[Hg] 85 mm[Hg] 160 mm[Hg] 80 mm[Hg] Not Available [facility] 17:50:04 Date Recorded Heart rate Systolic blood pressure Diastolic blood pressure Provider Name and Address Organization Details Last Updated DateTime 10/20/2024 74 /min 132 mm[Hg] 79 mm[Hg] Not Available [facility] 10/20/2024 09:20:04 Date Recorded Heart rate Systolic blood pressure Diastolic blood pressure Provider Name and Address Organization Details Last Updated DateTime 10/21/2024 72 /min 132 mm[Hg] 74 mm[Hg] Not Available [facility] 10/21/2024 09:19:10 Date Recorded Heart rate Systolic blood pressure Diastolic blood pressure Provider Name and Address Organization Details Last Updated DateTime 10/22/2024 66 /min 132 mm[Hg] 74 mm[Hg] Not Available [facility] 10/22/2024 09:49:05 Date Recorded Heart rate Systolic blood pressure Diastolic blood pressure Provider Name and Address Organization Details Last Updated DateTime 10/23/2024 70 /min 132 mm[Hg] 74 mm[Hg] Not Available [facility] 10/23/2024 10:02:05 Date Recorded Heart rate Heart rate Systolic blood pressure Diastolic blood pressure Systolic blood pressure Diastolic blood pressure Provider Name and Address Organization Details Last Updated DateTime 67 /min 63 /min 122 mm[Hg] 81 mm[Hg] 180 mm[Hg] 99 mm[Hg] Not Available [facility] 17:46:03 Date Recorded Heart rate Systolic blood pressure Diastolic blood pressure Provider Name and Address Organization Details Last Updated DateTime 10/25/2024 60 /min 153 mm[Hg] 75 mm[Hg] Not Available [facility] 10/25/2024 11:07:01 Date Recorded Heart rate Systolic blood pressure Diastolic blood pressure Provider Name and Address Organization Details Last Updated DateTime 10/26/2024 73 /min 150 mm[Hg] 85 mm[Hg] Not Available [facility] 10/26/2024 17:59:04 Date Recorded Heart rate Systolic blood pressure Diastolic blood pressure Provider Name and Address Organization Details Last Updated DateTime 10/27/2024 75 /min 136 mm[Hg] 74 mm[Hg] Not Available [facility] 10/27/2024 09:20:03 Date Recorded Heart rate Systolic blood pressure Diastolic blood pressure Provider Name and Address Organization Details Last Updated DateTime 10/28/2024 70 /min 136 mm[Hg] 74 mm[Hg] Not Available [facility] 10/28/2024 12:28:04 Date Recorded Heart rate Systolic blood pressure Diastolic blood pressure Provider Name and Address Organization Details Last Updated DateTime 10/30/2024 71 /min 130 mm[Hg] 71 mm[Hg] Not Available [facility] 10/30/2024 09:15:09 Date Recorded Heart rate Systolic blood pressure Diastolic blood pressure Provider Name and Address Organization Details Last Updated DateTime 10/31/2024 70 /min 135 mm[Hg] 67 mm[Hg] Not Available [facility] 10/31/2024 12:57:08 Date Recorded Heart rate Systolic blood pressure Diastolic blood pressure Provider Name and Address Organization Details Last Updated DateTime 11/01/2024 72 /min 147 mm[Hg] 72 mm[Hg] Not Available [facility] 11/01/2024 09:18:02 Date Recorded Heart rate Systolic blood pressure Diastolic blood pressure Provider Name and Address Organization Details Last Updated DateTime 11/02/2024 68 /min 124 mm[Hg] 72 mm[Hg] Not Available [facility] 11/02/2024 09:22:06 Date Recorded Heart rate Systolic blood pressure Diastolic blood pressure Provider Name and Address Organization Details Last Updated DateTime 11/03/2024 75 /min 128 mm[Hg] 75 mm[Hg] Not Available [facility] 11/03/2024 09:10:04 Date Recorded Heart rate Systolic blood pressure Diastolic blood pressure Provider Name and Address Organization Details Last Updated DateTime 11/04/2024 76 /min 128 mm[Hg] 75 mm[Hg] Not Available [facility] 11/04/2024 09:19:05 Date Recorded Heart rate Systolic blood pressure Diastolic blood pressure Provider Name and Address Organization Details Last Updated DateTime 11/05/2024 65 /min 142 mm[Hg] 76 mm[Hg] Not Available [facility] 11/05/2024 10:01:02 Date Recorded Heart rate Systolic blood pressure Diastolic blood pressure Provider Name and Address Organization Details Last Updated DateTime 11/06/2024 79 /min 145 mm[Hg] 86 mm[Hg] Not Available [facility] 11/06/2024 16:44:06 Date Recorded Heart rate Systolic blood pressure Diastolic blood pressure Provider Name and Address Organization Details Last Updated DateTime 11/07/2024 77 /min 135 mm[Hg] 84 mm[Hg] Not Available [facility] 11/07/2024 11:23:05 Date Recorded Heart rate Systolic blood pressure Diastolic blood pressure Provider Name and Address Organization Details Last Updated DateTime 11/08/2024 81 /min 133 mm[Hg] 69 mm[Hg] Not Available [facility] 11/08/2024 09:42:04 Date Recorded Heart rate Systolic blood pressure Diastolic blood pressure Provider Name and Address Organization Details Last Updated DateTime 11/09/2024 72 /min 129 mm[Hg] 69 mm[Hg] Not Available [facility] 11/09/2024 09:24:03 Date Recorded Heart rate Systolic blood pressure Diastolic blood pressure Provider Name and Address Organization Details Last Updated DateTime 11/10/2024 83 /min 130 mm[Hg] 72 mm[Hg] Not Available [facility] 11/10/2024 09:16:03 Social History Question Answer Notes LastModified by [employer] ion Details LastModified Time Tobacco Smoking Status Former Smoker Not Available [facility] 07/13/[facility] 03:36:41 Do You Have An Advance Directive? Yes HCP/ Son-Carmen Arriaga Information not available 05/03/2022 What Is Your Level Of Alcohol Consumption? None Information not available 09/27/2021 Is Blood Transfusion Acceptable In An Emergency? Yes Information not available 09/24/2020 What Is Your Level Of Caffeine Consumption? Moderate Tea [id number] Information not available 07/13/2020 How Much Tobacco Do You Chew? None Information not available 09/24/2020 Are You Currently Employed? No Retired [id number] Information not available 07/13/2020 Are You Deaf Or Do You Have Serious Difficulty Hearing? No Information not available 05/03/2022 What Type Of Diet Are You Following? REGULAR Dairy Free [email or web address] Information not available 09/28/2022 Which Illicit Or Recreational Drugs Have You Used? None [id number] Information not available 07/13/2020 Do You Or Have You Ever Used E-cigarettes Or Vape? 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 No Information not available 05/03/2022 When Did You Quit Smoking? 16+yearssince lastcigarette Information not available 09/24/2020 Live Alone Or With Others? Alone ; In 10/2016 Information not available 05/03/2022 Do You Take Precautions To Prevent Distracted Driving? Yes Information not available 08/26/2015 How Often Do You Need To Have Someone Help You When You Read Instructions, Pamphlets, Or Other Written Material From Your Doctor Or Pharmacy? Never Information not available 08/30/2016 Have You Served In The ? Yes Spouse Information not available 08/30/2016 Have You Or Anyone In Your Household Had Any Of The Following Symptoms In The Last 14 Days: Sore Throat, Cough, Chills, Body Aches For Unknown Reasons, Shortness Of Breath For Unknown Reasons, Loss Of Smell, Loss Of Taste, Fever At Or Greater Than 100 Degrees Fahrenheit? No Information not available 04/30/2020 Are You Or Anyone In Your Household A Health Care Provider Or Emergency Responder? No Information not available 04/30/2020 To The Best Of Your Knowledge Have You Been In Close Proximity To Any Individual Who Tested Positive For COVID-19? No Information not available 04/30/2020 *AWV ONLY* Are You Presently Prescribed Opioid Medication By PCP Or Specialist? If YES -Provider Assess The Benefit For Other, Non-opioid Pain Therapies Instead, Even If The Patient Does Not Have OUD But Is Possibly At Risk. No Information not available 04/30/2020 Have You Recently Traveled To A COVID-19 High Risk Area Or Gathering In The Last 10 Days? No Information not available 09/24/2020 Marital Status Informatio n not available 05/03/2022 What Was The Date Of Your Most Recent Tobacco Screening? 10/03/2024 [email or web address] Information not available 10/03/2024 Total Number Of Stairs In Home 11 Information not available 05/03/2022 How Many Children Do You Have? 3 Bart, Johnnie, And Roxana, 7 Grandchildr e, 3 Great Children Information not available 10/03/2024 What Is Your Current Pack Years? [email or web address] Information not available 05/03/2022 Difficulty Reading? No Information not available 05/03/2022 What Is Your Relationship Status? Information not available 05/03/2022 Do You Use Your Seat Belt Or Car Seat Routinely? Yes Information not available 09/27/2021 Seat Belts Used Routinely Yes Information not available 05/03/2022 Are You Sexually Active? No Information not available 09/24/2020 Smoke Alarm In Home Yes Information not available 05/03/2022 Do You Have Smoke And Carbon Monoxide Detectors In Your Home? Yes Information not available 09/27/2021 At What Age Did You Start Smoking Tobacco? 17 Information not available 09/24/2020 Are You Passively Exposed To Smoke? No Information not available 08/24/2014 Do You Or Have You Ever Used Smokeless Tobacco? Never Used Smokeless Tobacco [id number] Information not available 07/13/2020 How Much Tobacco Do You Smoke? 1 PPD [id number] Information not available 07/13/2020 Do You Use Any Illicit Or Recreational Drugs? No Information not available 05/03/2022 Do You Use Sunscreen Routinely? Yes [id number] Information not available 07/13/2020 How Many Years Have You Smoked Tobacco? 20 [id number] Information not available 07/13/2020 Difficulty Watching TV? No Information not available 05/03/2022 Do You Or Have You Ever Used Any Other Forms Of Tobacco Or Nicotine? No Information not available 05/03/2022 Sex: Unknown Functional Status Question Answer Note LastModified by Organizat ion Details LastModified Time Do you have difficulty walking or climbing stairs? No Information not available 05/03/20[address] at night? No Information not available 05/03/2022 Are you able to walk? YESWOREST Information not available 05/03/2022 Do you have difficulty doing errands alone? No Information not available 05/03/2022 Are you able to care for yourself? Yes [id number] Information not available 07/13/2020 Do you have difficulty dressing or bathing? No Information not available 05/03/2022 What is your exercise level? Moderate 1-2 x week; gym machines [id number] Information not available 07/13/2020 Mental Status Question Answer Note LastModified by Organization D etails LastModified Time Do you have difficulty concentrating, remembering or making decisions? No Information no t available 05/03/2022 Family History Relationship Description Onset Age of this Age Resolved Age Notes LastModified by Organization Details LastModified Time Father Heart disease [email or web address] Not available 08:33:58 Father Malignant tumor of colon [email or web address] Not available 08:33:58 Brother Malignant tumor of lung [email or web address] Not available 08:33:58 Brother Malignant neoplasm of urinary bladder [email or web address] Not available 10:26:39 Sister Degenerative disorder of macula Not available 2021 12:45:10 Sister Rheumatoid arthritis 81 Not available 2021 12:45:10 Sister Compression fracture Not available 2021 12:45:10 Sister Disorder of nervous system abolcun Not available 2021 10:51:38 Sister Disorder of thyroid gland abolcun Not available 2021 10:51:38 Sister Osteoporosis abolcun Not availa ble 09/27/2021 10:51:38 Mother Falls 79 Not available 12:45:10 Daughter Diabetes mellitus abolcun Not available 2021 10:51:38 Medical History Condition Response Gout N Other N Kidney Stones N Blood Diseases N Hyperthyroidism N Breast Cancer N Hypothyroidism N Lung Disease N Depression N COPD N Defects or Inherited Disease N Anesthesia Complications N Headaches/Migraines N Anxiety Disorder Y Varicose Veins N Obesity Y Vision or Eye Problems N Arthritis Y Head Injury/Concussion N Infertility N Polyps N Congenital Anomalies N Acid Reflux (GERD) Y Cancer N Stroke N ADHD N Endometriosis N High Cholesterol Y Liver Disease N Fibromyalgia N Kidney Disease N Heart Problems N Ear or Hearing Problems Y Hospitalizations N Thyroid Problems N GI Problems Y Acne N Eating Disorder N Skin Problems N Anemia N Constipation N Bladder Problems N Mental Illness N Diabetes N Ovarian Cancer N Blood Transfusions N Seizures/Epilepsy N Tuberculosis N AIDS/HIV N Congestive Heart Failure (CHF) N Eczema N Abuse/Domestic Violence N Diverticulitis N Asthma N Allergies N Reflux/GERD Y Hepatitis N Pulmonary Embolism N Hypertension Y Chicken Pox N Autism Spectrum Disorder (ASD) N Osteoporosis N Gynecological History Statement/Question Response Date of Last Pap Smear 07/30/2013 Date of Last Colonoscopy 12/19/2018 Most Recent Mammogram 01/24/2024 Most Recent Bone Density 12/03/2018 02/13/2011 Obstetrics History GPAL:G 0 P 0 0 0 0 Immunizations Vaccine Type Date Status Note Provider Nam e and Address Organization Details Recorded Time Influenza, high-dose, trivalent, PF 4 completed Not Available [facility] 11/01/2023 02:17:36 Influenza, high-dose, trivalent, PF 5 completed Not Available [facility] 11/01/2023 02:17:36 Influenza, split virus, quadrivalent, preservative 6 completed Not Available [facility] 11/01/2023 02:17:36 Influenza, high-dose, trivalent, PF 8 completed Not Available [facility] 11/01/2023 02:17:36 Influenza, high-dose, trivalent, PF 9 completed Not Available [facility] 11/01/2023 02:17:36 zoster recombinant 9 completed Not Available [facility] 11/01/2023 02:17:36 zoster recombinant 0 completed Not Available [facility] 11/01/2023 02:17:36 Influenza, split virus, quadrivalent, preservative 0 completed Not Available [facility] 11/01/2023 02:17:36 COVID-19, mRNA, LNP-S, PF, 30 mcg/0.3 mL dose 1 completed Not Available [facility] 11/01/2023 02:17:36 COVID-19, mRNA, LNP-S, PF, 30 mcg/0.3 mL dose 1 completed Not Available [facility] 11/01/2023 02:17:36 COVID-19, mRNA, LNP-S, PF, 30 mcg/0.3 mL dose 1 completed Not Available [facility] 11/01/2023 02:17:36 Influenza, high-dose, trivalent, PF 6 completed Not Available [facility] 11/01/2023 02:17:36 Influenza, adjuvanted, trivalent, PF 8 completed Not Available [facility] 11/01/2023 02:17:36 Influenza, high-dose, quadrivalent, PF 0 completed Not Available [facility] 11/01/2023 02:17:36 Influenza, adjuvanted, quadrivalent, PF 1 completed Not Available [facility] 11/01/2023 02:17:36 Influenza, high-dose, trivalent, PF 5 completed Not Available [facility] 11/01/2023 02:17:36 zoster live 9 completed Not Available [facility] 11/01/2023 02:17:36 zoster live 2 completed Not Available [facility] 11/01/2023 02:17:36 COVID-19, mRNA, LNP-S, PF, 30 mcg/0.3 mL dose, mk-sucrose 2 completed Not Available [facility] 11/01/2023 02:17:36 Pneumococcal conjugate PCV 13 4 completed Not Available [facility] 11/01/2023 02:17:36 Influenza, high-dose, trivalent, PF 7 completed Not Available [facility] 11/01/2023 02:17:36 Td (adult), 2 Lf tetanus toxoid, preservative free, adsorbed 1 completed Not Available [facility] 11/01/2023 02:17:36 Influenza, adjuvanted, quadrivalent, PF 2 completed Not Available [facility] 11/01/2023 02:17:36 COVID-19, mRNA, LNP-S, bivalent, PF, 30 mcg/0.3 mL dose 2 completed Not Available [facility] 11/01/2023 02:17:36 Influenza, high-dose, quadrivalent, PF 3 completed Not Available [facility] 11/01/2023 02:17:36 COVID-19, mRNA, LNP-S, PF, mk-sucrose, 30 mcg/0.3 mL 3 completed Not Available [facility] 11/01/2023 02:17:36 Influenza, adjuvanted, trivalent, PF 4 completed TERELL Nguyen, [facility] 10/03/2024 10:18:22 RSV, bivalent, protein subunit RSVpreF, diluent reconstituted, 0.5 mL, PF 4 completed TERELL Nguyen, [facility] 10/03/2024 10:18:22 COVID-19, mRNA, LNP-S, PF, mk-sucrose, 30 mcg/0.3 mL 4 completed TERELL Nguyen, [facility] 10/03/2024 10:18:22 Tdap 4 completed TERELL Nguyen, [facility] 10/03/2024 10:18:22 pneumococcal polysaccharide PPV23 8 completed Not Available [facility] 11/01/2023 02:17:36 Td (adult), 2 Lf tetanus toxoid, preservative free, adsorbed 0 completed Not Available [facility] 11/01/2023 02:17:36 Tdap 1 completed Not Available [facility] 11/01/2023 02:17:36 Influenza, split virus, trivalent, preservative 2 completed Not Available [facility] 11/01/2023 02:17:36 Influenza, split virus, trivalent, preservative 3 completed Not Available [facility] 11/01/2023 02:17:36 Past Encounters Encounter ID Performer Location Encounter Start Date Encounter Closed Date Diagnosis/Indication Diagnosis SNOMED-CT Code Diagnosis ICD10 Code Diagnosis Note [id number] Asya Colon [place] Main Office [address] [place] [address] 03/26/2014 08:45:34 03/26/2014 09:51:23 Pure hypercholesterolemia [id number] 10 yr CV risk 13.4%. Will start statin to try and target LDL <100. Pt advised of common/ser ious side effects and to call if noted. Liver enzy mes outside reference range 771519980 Has been stable. Will follow. Insomnia 596673742 Well controlled , continue current regimen. [id number] [address] [address] [place] [address] 05/20/2012 00:00:00 [id number] [employer] [address] [place] [address] 08/07/2012 00:00:00 [id number] [employer] [address] [place] [address] 09/18/2012 00:00:00 [id number] auto[employer] erce [address] [facility],[address] [place] [address] 02/06/2013 00:00:00 [id number] auto[employer] erce [address] [facility],[address] [place] [address] 08/21/2013 00:00:00 [id number] auto[employer] erce [address] [facility],[address] [place] [address] 11/20/2013 00:00:00 [id number] Main Office [address] [facility] [address] [place] [address] 08/24/2014 09:18:36 08/24/2014 10:45:24 Adult health examination [id number] Will update immunizati on status and screen based on risk factors. Regular dental and optho care advised as well as seatblet and sunscreen use. Distracted driving discussed. Breast , colon and cervical cancer screening are utd. Pt currently demonstrat es low risk for falls and no significan t cognitive decline. Advance directives in place. Administra tion of pneumococcal vaccine 34106736 Pure hypercholesterolemia 444540674 Previous 10 yr CV risk 13.4%. Tolerating statin well with goal LDL control. Will continue current dose. Body mass index 25-29 - overweight 690346580 Insomnia 703131687 Well controlled , continue current regimen. Menopause present 126123317 Thyroid ho rmone tests outside reference range 053315159 Mild abnormalit y previously will reassess. Enzyme lev el - finding 544083430 Had eval in the past for mild alk phos elevation. Will follow/tommie ssess. [id number] Asya Colon TERELL Main Office [address] [facility] [address] [place] [address] 11/19/2014 08:02:05 11/19/2014 09:49:54 Thyroid hormone tests outside reference range 100321230 Subclinica l hypothyroi dism. Will monitor. Proteinuria 65350725 as had in the past. Will verify result and if persistent check UPEP. Abdominal pulsatile mass 6121734 Has history of tobacco use and family history. Neg AAA screen in 2012. Will reassess. Anxiety state 346310148 Resume previously tolerated SSRI dose. [id number] Main Office [address] [facility] [address] [place] [address] 02/24/2015 09:05:08 02/24/2015 09:48:16 Pure hypercholesterolemia 818805362 Previous 10 yr CV risk 13.4%. Tolerating statin well with goal LDL control. Will continue current dose. Moderate anxiety 69847437 Doing well on current SSRI dose. Continue as is. Thyroid ho rmone tests outside reference range 142603984 Subclinica l hypothyroi dism. Will monitor. Proteinuria 55071097 Fur ther testing was unremarkab le. Will follow UA. [id number] Zoey Anderson Main Office [address] [facility] [address] [facility] [address] 08/26/2015 08:14:23 08/26/2015 09:20:13 Adult health examination 686527560 Z00.00 Will update immunizati on status and screen based on risk factors. Regular dental and optho care advised as well as seatblet and sunscreen use. Distracted driving discussed. Breast , colon and cervical cancer screening are utd. Has appointmen t with shipping weigher next month. Pt currently demonstrat es low risk for falls and no significan t cognitive decline. Advance directives in place. Body mass index 25-29 - overweight 886184711 Z68.29 Pure hypercholesterolemia 281760685 E78.0 Previous 10 yr CV risk 13.4%. Tolerating statin well with goal LDL control. Will continue current dose. Insomnia 909751246 G47.0 0 Well controlled , continue current regimen. Thyroid ho rmone tests outside reference range 513603125 R94.6 Mild abnormalit y previously will reassess. Enzyme lev el - finding 962912186 R74.9 Had eval in the past for mild alk phos elevation. Will follow/tommie ssess. [id number] Shakir Vanessa MD Main Office [address] [address] [place] [address] 02/28/2016 08:21:53 02/28/2016 09:33:47 Moderate anxiety 44520808 F41.9 Doing well off of SSRI. Will call if symptoms become more limiting. Pure hypercholesterolemia 600062421 E78.0 Previous 10 yr CV risk 13.4%. Tolerating statin well with goal LDL control. Will continue current dose. Proteinuria 42274377 R80 .9 Persistent issue. Negative UPEP last year. Will ask renal to evaluate further if appropriat e. Subclinica l hypothyroidism 84761101 E02 Will continue monitoring . [id number] Yasir Quintanilla MD Main Office [address] [place] [address] 03/23/2016 10:10:02 03/23/2016 11:34:33 Dysuria 23331167 R30.0 ? d/t UTI (less likely given NL dipstick) vs atrophic vaginitis -- r/o infxn first [id number] Shakir Vanessa MD Main Office [address] [place] [address] 08/30/2016 09:06:05 08/30/2016 10:16:25 Adult health examination 760675678 Z00.00 Will update immunizati on status and screen based on risk factors. Regular dental and optho care advised as well as seat belt and sunscreen use. Distracted driving discussed. Breast , colon and cervical cancer screening are utd. Pt currently demonstrat es low risk for falls and no significan t cognitive decline. Advance directives discussed and need updating with regards to her husbands dementia. Pure hypercholesterolemia 063988730 E78.01 Previous 10 yr CV risk 13.4%. Tolerating statin well with goal LDL control. Will continue current dose and reassess labs in November. Subclinica l hypothyroidism 35703390 E02 Will continue monitoring . Moderate anxiety 2041167 6 F41.9 Symptoms returning with her having trouble dealing with her husbands progressiv e dementia. Will restart previosuly tolerated SSRI dose. Body mass index 25-29 - overweight 918409954 E66.3 [id number] Shakir Vanessa MD Main Office [address] [facility] [address] [place] [address] 10/05/2016 09:11:30 10/05/2016 09:54:00 Pure hypercholesterolemia 493904158 E78.01 Tolerating rx well. Will reassess control prior ot next appt. Continue current dose for now. Moderate anxiety 0959971 6 F41.9 Overall coping well in light of multiple stressor. Will continue current dose for now but pt advised to call/consi ugo dose titration if symptoms are worsening. Advance di rective discussed with patient 631902088 Z71.89 Advance directives discussed/ updated in light of her husbands slowly progressiv e incapacity . Insomnia 979976239 G47.0 0 Advise to try increasing trazodone by 25mg to see if more helpful. [id number] Shakir Vanessa MD Main Office [address] [facility] 207 [facility] [place] [place] [address] 11/30/2016 08:51:50 11/30/2016 09:52:54 Pure hypercholesterolemia 757970181 E78.01 Tolerating rx well, with goal control. Continue current dose. Moderate anxiety 7319605 6 F41.9 Will continue current dose for now but pt advised to call/consi ugo dose titration if symptoms are worsening. Proteinuria 79836850 R80 .9 Has history, will monitor. [id number] Yasmeen Powers Main Office [address] [place] [address] 05/24/2017 09:33:15 05/24/2017 10:37:00 Influenza vaccine needed 7417744997 106 Z23 Pain in left knee 409135 0994 47836 M25.562 c/w patellofem oral pain, but with recent insect bite and rash. Will image to rule out severe OA of other deformitie s. If labs and xray are unremarkab le will manage with PT. 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 Will monitor trend. Generalize d anxiety disorder 77688689 F41.1 Will continue current dose for now but pt advised to call/consi ugo dose titration if symptoms are worsening. Bite of no nvenomous arthropod 941601245 W57.XXXA [id number] Shakir Vanessa MD Main Office [address] [address] [place] [address] 08/06/2017 11:12:05 08/06/2017 12:37:36 Pain in wrist 07466105 M25.531 unlikely but check xray to r/o avulsion fx - will send to ortho if + [id number] Shakir Vanessa MD Main Office [address] [address] [place] [address] 09/17/2017 10:06:16 09/17/2017 11:29:01 Adult health examination 606142896 Z00.00 Will update immunizati on status and screen based on risk factors. Regular dental and optho care advised as well as seat belt and sunscreen use. Distracted driving discussed. Breast , colon and cervical cancer screening are utd. Pt currently demonstrat es low risk for falls and no significan t cognitive decline. Advance directives discussed and need updating with regards to her husbands dementia. Pain of right wrist 3169 388612 80886 M25.531 Persistent despite splinting and PT. WIll ask ortho for input. Pain in left knee 571352 5851 22725 M25.562 Persistent despite splinting and PT. WIll ask ortho for input. Obesity 944549558 E66.9 Body mass index 30+ - obesity 451108090 Z68.30 Pure hypercholesterolemia 033596091 E78.01 Tolerating rx well, with goal control. Continue current dose. Subclinica l hypothyroidism 07289743 E02 Will continue monitoring . [id number] Shakir Vanessa MD Main Office [address] [address] [place] [address] 10/08/2017 10:28:22 10/08/2017 11:39:18 Acute sinusitis 13929674 J01.90 Based on quality and duration of symptoms, reasonable suspicion for bacterial sinusitis. Advised nasal saline, and common/ser ious potential abx side effects discussed. Call inb/worse or with any problems. [id number] Shakir Vanessa MD Main Office [address] [facility] [address] [place] [address] 02/25/2018 09:45:23 02/25/2018 10:48:04 Pure hypercholesterolemia 824503275 E78.01 Tolerating rx well, with goal control. Continue current dose. Hearing loss 51347711 H9 1.93 Thyroid ho rmone tests outside reference range 478673372 R94.6 c/w stable subclinica l hypothyroi dism. Asymptomat ic, will monitor for now. Elevated blood-pressure reading without diagnosis of hypertension 956025808 R03.0 Will work on weight loss, and low Na diet. Consider diuretic if still >130/90 at f/u. Generalize d anxiety disorder 69049113 F41.1 Currently well controlled . Will continue current dose for now but pt advised to call/consi ugo dose titration if symptoms are worsening. [id number] Fortino Schneider MD Main Office [address] [address] [place] [address] 04/29/2018 13:35:35 04/29/2018 14:35:51 Heel pain 4563073 M79.672 see below - likely plantar fasciitis - if no better, call us - then consider xr at that time --- meanwhile, rec active/pas sive stretch of L ankle joseph 1st thing in am ac get oob, and get Dr. Gregory's gel heel pad [id number] Shakir Vanessa MD Main Office [address] [facility] [address] [place] [address] 09/24/2018 09:11:29 09/24/2018 10:36:39 Adult health examination 232297929 Z00.00 Will update immunizati on status and screen based on risk factors. Regular dental and optho care advised as well as seat belt and sunscreen use. Distracted driving discussed. Breast , colon and cervical cancer screening are utd. Pt currently demonstrat es low risk for falls and no significan t cognitive decline. Advance directives /HCP in place and reviewed. MOLST form provided. Obesity 616975163 E66.9 Body mass index 30+ - obesity 557091049 Z68.31 Pure hypercholesterolemia 920067760 E78.01 Tolerating rx well, with goal control. Continue current dose. Subclinica l hypothyroidism 87659127 E02 Will continue monitoring . Varicella vaccination 68 809404 Z23 Generalize d anxiety disorder 86246211 F41.1 Currently well controlled . Will continue current dose for now but pt advised to call/consi ugo dose titration if symptoms are worsening. Menopause present 883894 006 Z78.0 Due for f/u screening. Abdominal aortic aneurysm 818507171 I71.4 measured at 3cm in 2014, overdue for reassessme nt. 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 Will continue to monitor. Gastroesop hageal reflux disease 405767299 K21.9 See if PRN H2B affords enough symptoms relief. Advance di rective discussed with patient 938515886 Z71.89 HCP reviewed/c onfirmed. MOLST form provided which pt will review with her children and bring into f/u. [id number] Shakir Vanessa MD Main Office [address] [facility] [address] [facility] [place] [address] 03/04/2019 10:25:38 03/04/2019 11:41:56 Pure hypercholesterolemia 151227595 E78.01 Tolerating rx well, with goal control. Continue current dose. Generalize d anxiety disorder 22021500 F41.1 Currently well controlled . Will continue current dose for now but pt advised to call/consi ugo dose titration if symptoms are worsening. 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 Will see if low dose diuretic taken in AM helps round off higher BP measuremen ts and potentiall y helps with nocturia if secondary to fluid retention. Nocturia 474296034 R35.1 Image bladder and refer to urology if persistent /worse. [id number] Shakir Vanessa MD Main Office [address] [facility] [address] [facility] [place] [address] 06/03/2019 10:22:57 06/03/2019 11:24:07 Insomnia 132561744 G47.00 Well controlled . Advised to reduce trazodone dose to 25 mg if oxybutinin affords excessive sleepiness . 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 Gastroesop hageal reflux disease 397048764 K21.9 Well controlled with PRN H@B, will continue. Nocturia 100200107 R35.1 Will see if anticholin ergic affords some nighttime symptom relief. Imaging and urology consult if not or if symptoms worsen. [id number] Skyla Camejoalyssa Main Office [address] [facility] [address] [place] [address] 08/04/2019 11:16:07 08/04/2019 12:00:55 Pneumonia 898763625 J18.9 early pneumonia with sinus infection. Will start antibiotic s. CXR pending. Call if not improving within a few days to a week, sooner if worsening. Acute sinusitis 60848172 J01.90 steam, flonase, sinus nasal rinse if desired, keep hydrated, start antibiotic [id number] Skyla Nazariojuancarlos Main Office [address] [facility] [address] [facility] [place] [address] 08/13/2019 10:22:47 08/13/2019 12:00:13 Acute atelectasis 794079427 J98.11 atelectasi s vs nodule, repeat next week. Persistent cough 8009333 02 R05 Finish antibiotic and will start predninson e taper and prn albuterol. Side effect of med discussed, rest, hydration. Call if not improving within a few days to a week, sooner if worsening. Repeat cxr next week [id number] Shakir Vanessa MD Main Office [address] [facility] [address] [facility] [place] [address] 09/25/2019 09:14:54 09/25/2019 10:25:10 Adult health examination 590160147 Z00.00 Will update immunizati on status and screen based on risk factors. Regular dental and optho care advised as well as seat belt and sunscreen use. Distracted driving discussed. Breast , colon and cervical cancer screening are utd. Pt currently demonstrat es low risk for falls and no significan t cognitive decline. Advance directives /HCP in place and reviewed. MOLST form provided. Insomnia 119536923 G47.0 0 Well controlled . Advised to try titrating trazodone dose to 75 mg . Gastroesop hageal reflux disease 211217521 K21.9 Well controlled with PRN H2B, will continue. Obesity 931374631 E66.9 Body mass index 30+ - obesity 928364098 Z68.32 Pure hypercholesterolemia 227447118 E78.01 Tolerating rx well, with goal control. Continue current dose. Subclinica l hypothyroidism 00589272 E02 Will continue monitoring . Varicella vaccination 68 079102 Z23 Generalize d anxiety disorder 15812068 F41.1 Currently well controlled . Will continue current dose for now but pt advised to call/consi ugo dose titration if symptoms are worsening. 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 Will continue to monitor. Advance di rective discussed with patient 885723694 Z71.89 HCP reviewed/c onfirmed. MOLST form provided which pt will review with her children and bring into f/u. [id number] Shakir Vanessa MD Main Office [address] [facility] 207 [facility] [place] [place] [address] 12/23/2019 08:10:01 12/23/2019 10:00:57 Generalized anxiety disorder 66705990 F41.1 Currently well controlled . Will continue current dose for now but pt advised to call/consi ugo dose titration if symptoms are worsening. Pure hypercholesterolemia 783164199 E78.01 Well controlled on statin. Due for reassessme nt. Pt will go for labs when pandemic improves. Insomnia 467372341 G47.0 0 Well controlled on current dose of trazodone. Will continue. Subclinica l hypothyroidism 77941144 E02 Asymptomat ic, will continue monitoring . Labs pending. [id number] Shakir Vanessa MD Telehealt [facility] [address] [facility] [address] [place] [address] 04/30/2020 06:24:09 04/30/2020 09:23:06 Generalized anxiety disorder 48415115 F41.1 Currently well controlled . Will continue current dose for now but pt advised to call/consi ugo dose titration if symptoms are worsening. Insomnia 322360376 G47.0 0 Well controlled on current dose of trazodone. Will continue. Easy bruising 620661197 R58 likely related to SSRI. Recent CBC normal. Will monitor. Pure hypercholesterolemia 947214013 E78.01 Well controlled on statin. Due for reassessme nt. Pt will go for labs when pandemic improves. [id number] Shakir Vanessa MD Telehealt h [address] [place] [address] 09/24/2020 07:14:16 10/02/2020 09:13:11 Adult health examination 397370928 Z00.00 Will update immunizati on status and screen based on risk factors. Regular dental and optho care advised as well as seat belt and sunscreen use. Distracted driving discussed. Breast , colon and cervical cancer screening are utd. Pt currently demonstrat es low risk for falls and no significan t cognitive decline. Advance directives /HCP in place and reviewed. Generalize d anxiety disorder 91474127 F41.1 Currently well controlled . Will continue current dose for now but pt advised to call/consi ugo dose titration if symptoms are worsening. Pure hypercholesterolemia 387977068 E78.01 Well controlled on statin. Due for reassessme nt. Pt will go for labs when pandemic improves. Screening for malignant neoplasm of breast 158891349 Z12.39 Menopause present 604441 006 Z78.0 Had normal bone density in 2019, no need for testing anytime soon. Dilatation of aorta 2666 0001 I71.9 Will reassess. Previously measured at 3cm. Insomnia 386800677 G47.0 0 Well controlled . Advised to try titrating trazodone dose to 75 mg . Gastroesop hageal reflux disease 685487593 K21.9 Well controlled with PRN H2B, will continue. Subclinica l hypothyroidism 07930740 E02 Will continue monitoring . 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 Will continue to monitor. [id number] Sunshine Morales MD Main Office [address] [facility] [address] [place] [address] 10/13/2020 10:13:37 10/13/2020 12:43:53 [id number] Yasmeen Powers Main Office [address] [facility] [address] [address] 10/15/2020 10:17:43 10/15/2020 11:03:29 Transition of care 9082931265 105 Z75.8 Bleeding precaution discussed with patient.Sh shonna has [facility] for INR check and coumadin is being dosed at our clinic. Compliance discussedQ uestion and concerned addressed Acute pulm onary embolism 659704968 I26.99 HAS BLED score 1 advised to cw with anticoag. She is being bridged with LovenoxWil l place hematology consult as she has significan t fhx of blood clot (son and brother), would like to refer to consider for hypercoagu lable workup and see if patient might be a candidate for eliquis and see if hematology office can assist patient with insurance coverage.S ifeoma note: She has hx of AAA, her children have had genetic testing for hypercoag which was negative per pt. She does note to easily bruising prior to even starting warfarin/l ovenox. She is being bridge with lovenox. Abdominal aortic aneurysm 712903627 I71.4 Stable on recent sonogram [id number] Sunshine Morales MD Main Office [address] [facility] 207 [facility] [place] [address] 01/28/2021 11:19:21 01/28/2021 12:03:40 Complaining of - postnasal drip 166132430 R09.82 Impacted c erumen in right ear 7966754055 741302 H61.21 [id number] Shakir Vanessa MD Main Office [address] [facility] 207 [facility] [place] [address] 02/17/2021 10:05:48 02/17/2021 11:22:26 Generalized anxiety disorder 12179737 F41.1 Currently well controlled . Will continue current dose for now but pt advised to call/consi ugo dose titration if symptoms are worsening. Abdominal aortic aneurysm 920819419 I71.4 Stable mostly ectasia. Reassess in Oct. Pure hypercholesterolemia 392515647 E78.01 Well controlled on statin. Due for reassessme nt. Pt will go for labs when pandemic improves. Acute pulm onary embolism 731513192 I26.99 Will rewquire anticoagul ation thru Sept at least. Has f/u with heme for guidance. Essential hypertension 52995381 I10 Resume HCTZ which was well tolerated/ effective in the past. Gastroesop hageal reflux disease 052838711 K21.9 Minimal symptoms, will try HS H2B to see if helps. Requires a tetanus booster 020810215 Z23 [id number] Yasmeen Powers Main Office [address] [facility] [address] [place] [address] 03/02/2021 11:23:13 03/02/2021 12:10:40 Tear of skin 827302943 S51.812A L forearm - no evidence of cellulitis - put bacitracin on skin tears, applied non-adhere nt telfa pad, wrapped c coban - advised her to do so daily for next several days - could use vas pj if run out of bacitracin (the ointment/m oisture is more important for wound healing) also in future - rec use moisturizi ng cream on hands/fore arms to help make future skin tears a little less likely Acute pulm onary embolism 410815318 I26.99 cont AC as dir Accidental ly struck by or against stationary object 228329356 W22.8XXA [id number] Shakir Vanessa MD Main Office [address] [place] [address] [place] [address] 04/05/2021 08:16:04 04/05/2021 09:06:43 Gastroesophageal reflux disease 259550153 K21.9 Having breathroug h symptoms on QD Diverticul osis of colon 554029263 K57.30 Irritable bowel syndrome 93947466 K58.9 Will assume this is the issue if tic/celiac and h pylori are rule out. Will refer to new GI provider regardless . Upper abdominal pain 831 86748 R10.10 Screen for inflammato ry infectious processes. Will manage accordingl y. Abrasion o f skin of dorsal area of hand 620201895 S60.511A Healing well at this point. Advised to call with any s/s of infection. [id number] Skyla Estrada Main Office [address] [facility] [address] [place] [address] 04/20/2021 10:48:59 04/20/2021 12:08:52 Thoracic back pain 187795098 M54.6 Improved/r esolved since ED visit, can use heat, stretching , otc pain reliever. Call if sx return Diarrhea 92265724 R19.7 CLOVIS diet, clear fluid, avoid dairy products, will check stool studies. Pt has had workup for Gi issue recently, would have her see GI for possible colon to assess for microscopi c colitis. referral made a few weeks ago, pt to call if she does not hear from [facility] [id number] Shakir Vanessa MD Main Office [address] [facility] 207 [facility] [place] [address] 05/23/2021 10:35:44 05/23/2021 11:37:41 Pure hypercholesterolemia 700996620 E78.01 Well controlled on statin. Continue current regimen. Gastroesop hageal reflux disease 633452543 K21.9 Having break through symptoms on QD Irritable bowel syndrome 90409619 K58.9 Will assume this is the issue if tic/celiac and h pylori are rule out. Will continue Lomotil PRN, not using it frequently . Essential hypertension 60550315 I10 Well controlled on HCTZ Pain in right thumb 1076 994622 931222 M79.644 Suspect tendonitis vs OA. Will ask ortho to help manage. [id number] Shakir Vanessa MD Main Office [address] [facility] 207 [facility] [place] [address] 09/27/2021 10:46:28 09/27/2021 11:56:47 Adult health examination 129743410 Z00.00 Will update immunizati on status and screen based on risk factors. Regular dental and optho care advised as well as seat belt and sunscreen use. Distracted driving discussed. Breast , colon and cervical cancer screening are utd. Pt currently demonstrat es low risk for falls and no significan t cognitive decline. Advance directives /HCP in place and reviewed. Essential hypertension 15145070 I10 Not well controlled . Will check labs and if nl and BP >140/90 at f/u will add ACEI. Pure hypercholesterolemia 355115040 E78.01 Well controlled on statin. Continue current regimen. Screening for malignant neoplasm of breast 733183074 Z12.39 Irritable bowel syndrome 76404946 K58.9 Will continue Lomotil PRN, not using it frequently . Tubular ad enoma of colon 543274059 D12.6 Colonoscop y utd from 2019 and no concerning symptoms. Subclinica l hypothyroidism 36478717 E02 Will continue monitoring . Generalize d anxiety disorder 13516353 F41.1 Currently well controlled . Will continue current dose for now but pt advised to call/consi ugo dose titration if symptoms are worsening. Menopause present 716911 006 Z78.0 Had normal bone density in 2019, no need for testing anytime soon. Gastroesop hageal reflux disease 360056345 K21.9 Well controlled with PRN H2B, will continue. 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 Will continue to monitor. Long-term current use of anticoagulant 049813063 Z79.01 Body mass index 30+ - obesity 706426584 E66.9 Z68.32 Acute pulm onary embolism 295304846 I26.99 Will require anticoagul ation indefinite ly. Has f/u with heme for guidance. [id number] Shakir Vanessa MD Main Office 36[address] [facility] [address] [place] [address] 12/20/2021 10:33:27 12/20/2021 11:43:42 Essential hypertension 87224918 I10 Not well controlled . Will add CCB to diuretic and see if it might help with loose stools as well. Advised of common/ser ious potential side effects and to call with any problems. Will titrate as tolerated to gaol BP <130/90. [id number] Shakir Vanessa MD Main Office [address] [facility] [address] [place] [address] 01/09/2022 11:20:00 01/09/2022 12:37:03 Essential hypertension 82043106 I10 Well controlled on recheck and based on home monitoring . Will monitor and titrate amlodipine dose Gastroesop hageal reflux disease 803249165 K21.9 Will resume PPI and monitor. No evidence of ischemic changes on ECG but if symptoms persist will need stress testing. Advised to call if no relief with PPI or if symptoms correlate with exertion. [id number] Shakir Vanessa MD Main Office [address] [facility] [address] [place] [address] 04/11/2022 10:27:34 04/11/2022 11:32:27 Essential hypertension 99644474 I10 Well controlled following addition of amlodipine . Continue RPM and current regimen. Gastroesop hageal reflux disease 556798235 K21.9 Well controlled without warning signs on low dose PPI. Will continue as is. Laceration of right lower leg 8900883323 8795894 S81.811A No evidence for infection, tetanus utd. Wound care advised, call with s/s of infection. Persistent cough 9153072 02 R05.3 Secondary to PND. Recent chest imaging unremarkab le. Will monitor. 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 Will monitor trend. [id number] Yasmeen Powers Main Office [address] [facility] [address] [place] [address] 05/03/2022 12:44:42 05/03/2022 13:25:09 Simple laceration of scalp 478099812 S01.01XA 2 mirza removed with minimal bleeding that stopped prior to pt's departure. ab ointment applied. Pt. advised to apply ointment for couple of days and can showed tomorrow. Fall W19.XXXA [id number] Shakir Vanessa MD Main Office [address] [facility] [address] [facility] [place] [address] 09/28/2022 10:01:35 09/28/2022 11:07:44 Adult health examination 329833334 Z00.00 Will update immunizati on status and screen based on risk factors. Regular dental and optho care advised as well as seat belt and sunscreen use. Distracted driving discussed. Breast , colon and cervical cancer screening are utd. Pt currently demonstrat es low risk for falls and no significan t cognitive decline. Advance directives /HCP in place and reviewed. Tubular ad enoma of colon 335242513 D12.6 Colonoscop y utd from 2018 and no concerning symptoms. Due 2023 unless issues/sym ptoms arise. Gastroesop hageal reflux disease 217607550 K21.9 Well controlled without warning signs on low dose PPI. Will continue as is. Essential hypertension 20921968 I10 Well controlled based on ambulatory /home monitoring . WIll continue current regimen. Pure hypercholesterolemia 975329191 E78.01 Well controlled on statin. Continue current regimen. Screening for malignant neoplasm of breast 330454481 Z12.39 Irritable bowel syndrome 16946275 K58.9 Will continue Lomotil PRN, not using it frequently . Generalize d anxiety disorder 39936582 F41.1 Currently well controlled . Will continue current dose for now but pt advised to call/consi ugo dose titration if symptoms are worsening. Menopause present 339705 006 Z78.0 Had normal bone density in 2019, no need for testing anytime soon. 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 Will continue to monitor. Long-term current use of anticoagulant 324826403 Z79.01 History of pulmonary embolus 128858922 Z86.711 Will require anticoagul ation indefinite ly. Has f/u with heme for guidance. Advance di rective discussed with patient 998426208 Z71.89 HCP reviewed/c onfirmed. MOLST form provided which pt will review with her children and bring into f/u. Body mass index 25-29 - overweight 997588148 E66.3 Z68.29 [id number] Yasmeen Powers Main Office [address] [facility] [place] [address] 02/08/2023 09:16:49 02/08/2023 10:15:13 Essential hypertension 01380467 I10 Well controlled based on ambulatory /home monitoring . Will continue current regimen. Irritable bowel syndrome 43607505 K58.9 Will continue Lomotil PRN, not using it frequently . Advance di rective discussed with patient 590487567 Z71.89 MOLST form reviewed, terminolog y clarifies and wishes documented . Alkaline p hosphatase above reference range 250246156 R74.8 Has been chronic issue with predominan tly bone isoenzyme elevation and negative imaging in the past. Will monitor trend. Gastroesop hageal reflux disease 754655186 K21.9 Well controlled without warning signs on low dose PPI. Will continue as is. Long-term current use of anticoagulant 543890513 Z79.01 Having easy bruising but no bleeding. INR's mostly therapeuti c. SSRI liekly contributi ng. Will monitor. Chronic pu lmonary embolism 8704800182 00108 I27.82 Pure hypercholesterolemia 918730973 E78.01 Well controlled on statin. Continue current regimen. [id number] MARK BONILLA Main Office 3640 [facility] [address] [place] [address] 07/27/2023 10:31:17 07/27/2023 10:57:09 Cough 24635519 R05.9 -x5 days of productive cough-asso ciated symptoms: congestion , sinus pain-denie s of fever, chills, fatigue, SOB, wheezing, or chest pain-pt requests an xray as she has a hx of collapsed lung from similar symptoms Acute sinusitis 95786153 J01.90 -x5 days of sinus pain, nasal and throat congestion -PE revealed maxillary sinus tenderness to light tapping, nasal discharge- will give mucinex to help with throat congestion -will have pt start augmentin as directed [id number] Shakir Vanessa MD Main Office 36[address] [facility] [address] [place] [address] 10/02/2023 10:05:21 10/02/2023 11:20:55 Adult health examination 914623789 Z00.00 Immunizati on status utd will screen based on risk factors. Regular dental and optho care advised as well as seat belt and sunscreen use. Distracted driving discussed. Breast, and cervical cancer screening are utd. Colon cancer screening is due. Pt currently demonstrat es low risk for falls and no significan t cognitive decline. Advance directives /HCP in place and reviewed. Gastroesop hageal reflux disease 590971608 K21.9 Well controlled without warning signs on low dose PPI. Will continue as is. Essential hypertension 37237833 I10 Not at goal will titrate amlodipine Tubular ad enoma of colon 506906096 D12.6 Due for follow up screening this year, but pt would like to defer if possible. Agreed to check stool cards and if positive then that may warrant Pure hypercholesterolemia 250326624 E78.01 Well controlled on statin. Continue current regimen. Screening for malignant neoplasm of breast 606231219 Z12.39 Irritable bowel syndrome 28017679 K58.9 Will continue Lomotil PRN, not using it frequently . Generalize d anxiety disorder 44094860 F41.1 Currently well controlled . Will continue current dose for now but pt advised to call/consi ugo dose titration if symptoms are worsening. Menopause present 724434 006 Z78.0 Had normal bone density in 2019, no need for testing anytime soon. 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 Will continue to monitor. Long-term current use of anticoagulant 990606314 Z79.01 Having easy bruising but no bleeding. INR's mostly therapeuti c. SSRI likely contributi ng. Will monitor. History of pulmonary embolus 710784239 Z86.711 Will require anticoagul ation indefinite ly. Has f/u with heme for guidance. Hypertensi on monitoring status 879595696 I10 Chronic pu lmonary embolism 7051379395 08015 I27.82 On indefinite anticoagul ation. Saw Dr Tucker last month, plan verified. Body mass index 30+ - obesity 946248934 E66.9 Z68.31 [id number] Maile truong [place] Main Office [address] [place] [address] 10/26/2023 10:25:34 10/26/2023 10:33:19 [id number] Fortino Schneider MD [facility] [place] [address] 12/03/2023 12:46:47 12/03/2023 13:49:07 Urinary tract infectious disease 94519739 N39.0 [id number] Shakir Vanessa MD Main Office [address] [place] [address] 01/07/2024 13:13:20 01/07/2024 14:22:53 Essential hypertension 74886472 I10 Well controlled based on ambulatory /home monitoring . Will continue current regimen. Gastroesop hageal reflux disease 252393457 K21.9 Stool testing was heme positive, having dysphagia on PPI. Will request GI note and ask to add EGD on to colonoscop y if not already planned. Persistent insomnia 1919 46619 G47.09 Monitor off of trazodone. pt will resume if worse. [id number] John Mott PA-C [facility] [place] [address] 02/05/2024 14:09:16 02/05/2024 15:15:54 Dysuria 65099340 R30.0 SYMPTOMS:b urning with urination? {{yes* no} }frequency ? {{yes* no} }hematuria ? {{yes no*} }lower abdominal pain? {{yes* no} }symptoms similar to previous UTI? {{yes* no NA}} POSSIBLE CONTRAINDI CATIONS TO TELEPHONE TREATMENT: > 65 years of age? {{yes* no} }fevers? {{yes no*} }recent UTI (within 1 month)? {{yes no*} } on 12/03/23ne w low back pain? {{yes no*} }nausea or vomiting? {{yes no*} }? {{yes no*} }history of interstiti al cystitis? {{yes no*} } PROVIDER ACTION: Reviewed nursing notes? {{yes no}} Recommende d action {{appropri ate for telephone treatment needs appointmen t must drop off urine for culture}} Antibiotic treatment {{Bactrim DS x 3 days Bactr im DS x 7 days Macro bid x 7 days Cipro x 3 days Cipro x 7days anot her medication (provider will prescribe) NA}} Urinary tr act infectious disease 29265979 N39.0 will check urine sample - meanwhile, rx empiricall y c cipro cont push fluids recommend probiotics while on abx [id number] Shakir Vanessa MD Main Office 36[address] [facility] [address] [place] [address] 05/08/2024 10:29:36 05/08/2024 11:28:05 Generalized anxiety disorder 52926905 F41.1 Currently well controlled . Will continue current dose for now but pt advised to call/consi ugo dose titration if symptoms are worsening. Essential hypertension 44763091 I10 Well controlled based on ambulatory /home monitoring . Will continue current regimen. Gastroesop hageal reflux disease 404208833 K21.9 With HH is at increased risk for esophagiti s/gastriti s joseph with anticoagul ation. Will maintain on PPI. Insomnia 850488048 G47.0 0 Well controlled . Advised to try titrating trazodone dose to 75 mg . Alkaline p hosphatase above reference range 884797591 R74.8 Has been chronic issue with predominan tly bone isoenzyme elevation and negative imaging in the past. Will monitor trend. Hiatal hernia 41039627 K 44.9 Will maintian on PPI and monitor. Hypokalemia 98061465 E87 .6 Likely from HCTZ. Advised to increase dietary intake and will monitor. Chronic pu lmonary embolism 3589421292 73874 I27.82 On indefinite anticoagul ation. Followed by heme Long-term current use of anticoagulant 477164951 Z79.01 Having easy bruising but no bleeding. INR's mostly therapeuti c. SSRI likely contributi ng. Will monitor. Hypercoagu lability state 43471426 D68.59 [id number] Tatiana Mott PA-C [facility] 36[address] [facility] [address] [facility] [place] [address] 05/26/2024 14:04:50 05/26/2024 15:49:47 COVID-19 831997723 U07.1 Discussed with pt how to manage symptoms with otc meds. Recom tylenol PRN, Mucinex for cough. Pt. is interested in Paxlovid. Dose adjusted down. Recommend saline solution, plenty of fluids and rest. Retest INR in 2-3 days. Body mass index 25-29 - overweight 606736743 E66.3 Z68.25 [id number] Shakir Vanessa MD Main Office 36[address] [facility] 207 [place] [address] 10/03/2024 09:59:46 10/03/2024 11:04:02 Adult health examination 583289022 Z00.00 Immunizati on status utd will screen based on risk factors. Regular dental and optho care advised as well as seat belt and sunscreen use. Distracted driving discussed. Breast, and cervical cancer screening are utd. Colon cancer screening is due. Pt currently demonstrat es low risk for falls and no significan t cognitive decline. Advance directives /HCP in place and reviewed. Hypercholesterolemia 136 83833 E78.00 LDL not at goal, will titrate current statin. Gastroesop hageal reflux disease 050278667 K21.9 Well controlled without warning signs on low dose PPI. Will continue as is joseph while on DOAC and with HH. Essential hypertension 89759937 I10 Well controlled , continue current regimen. Tubular ad enoma of colon 322037869 D12.6 Asymptomat ic, due for f/u in 2028 if appropriat e. Pure hypercholesterolemia 680230688 E78.01 Well controlled on statin. Continue current regimen. Screening for malignant neoplasm of breast 007943569 Z12.39 Irritable bowel syndrome 25836566 K58.9 Will continue Lomotil PRN, not using it frequently . Generalize d anxiety disorder 03077084 F41.1 Currently well controlled . Will continue current dose for now but pt advised to call/consi ugo dose titration if symptoms are worsening. Menopause present [id number] 006 Z78.0 Had normal bone density in 2019, no need for testing anytime soon. 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 Will continue to monitor. Long-term current use of anticoagulant [id number] Z79.01 Having easy bruising but no bleeding. INR's mostly therapeuti c. SSRI likely contributi ng. Will monitor. History of pulmonary embolus [id number] Z86.711 Will require anticoagul ation indefinite ly. Has f/u with heme for guidance. Hypertensi on monitoring status [id number] I10 Chronic pu lmonary embolism [id number] 92611 I27.82 On indefinite anticoagul ation. Saw Dr Tucker last month, plan verified. Body mass index 30+ - obesity [id number] E66.9 Z68.31 Cramp in lower limb [id number] 05549 R25.2 Possible low Mg from PPI therapy. Will see if Mg supplement helps. 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.3 Health Concerns Section Related Observation LastModified by Organization Detai ls LastModified Time None Recorded Concern Status LastModified by Organization Details LastModified Time None Recorded Advance Directives Directive Y: HCP/ Son-Pierre Arriagar-Arabella saldivar Payers Encounter Date Sequence Insurance Name Policy Number Policy Armstrong Covered Member ID Armstrong Member ID Guarantor Name 01/07/2024 1 [place] [employer] Jayna Mo [id number] 1 Jayna Mo 01/07/2024 2 [place] [id number] Jayna Balbuena Chepe [id number] Jayna Castilloley 02/05/2024 1 [place] [employer] Jayna Mo [id number] 1 Jayna Castilloley 02/05/2024 2 [place] [id number] Jayna Balbuena Chepe [id number] Jayna aCstilloley 05/08/2024 1 [place] [employer] Jayna Castilloley [id number] 1 Jayna Balbuena Chepe 05/08/2024 2 [place] [id number] Jayna Balbuena Chepe [id number] Jayna Balbuena Chepe 05/26/2024 1 [place] [employer] Jayna Balbuena Mo [id number] 1 Jayna Balbuena Chepe 05/26/2024 2 [place] [id number] Jayna Balbuena Chepe [id number] Jayna Castilloley 10/03/2024 1 [place] [employer] Jayna Castilloley [id number] 1 Jayna Balbuena Chepe 10/03/2024 2 [place] [id number] Jayna Balbuena Chepe [id number] Jayna Mo Notes Date Note Type Note Provider Name and Address Organization Details Recorded Time 01/07/2024 text/html GERD RefluxRepor neel bypatient.Symptomsno difficulty swallowing; no pain swallowing; no postprandial pain Quality:burning Severity:worsening Duration:present <1 month Context:non-smoker; no drug alcohol withdrawalNotes:Sympt oms are persistent back on PPI with occ lower esophageal dysphagia, stool was heme positive in Feb, has colonoscopy scheduled on 12/10, no GI note received. States that she tried stopping her trazodone to see if that was contributing to her GERD symptoms.Hypertension F/UReported bypatient.Associated Symptoms:no dizziness; no lightheadedness; no chest pain; no shortness of breath; no palpitations; no edema; no calf pain with exertion Lifestyle:regular exercise; limiting/avoiding salt Medications:taking medications as directed; no side effects from medicationNotes:Anmol ating amlodipine well. Shakir Vanessa MD [address] [address], [place], [phone], [facility] 01/08/2024 06:49:21 02/05/2024 text/html Patient was last treated for a UTI on 12/03/23 - she was given a 5-day supply of amoxicillin-potassium clavulanate.she states it got better but never fully resolved, clearly worse since last sunday - minimal help c azo, no cranberry juice since on warfarin John Mott PA-C [address] [address], [place], [phone], [facility] 02/05/2024 15:14:11 05/08/2024 text/html Anxiety/Depressi onRep orted bypatient.Quality:sym ptoms improved Severity:denies suicidal ideations; able to maintain relationships; does not interfere with activities of daily living Context:no major life stressors Associated Symptoms:denies homicidal ideations; no significant weight gain; no significant weight loss; no visual/auditory hallucinations; no delusions; mood good; no anxiety; no crying spells;sleep disturbancesNotes:Has resumed trazodone, which is helping.GERD RefluxReported bypatient.Symptomsno difficulty swallowing; no pain swallowing; no postprandial pain Quality:burning Severity:worsening Duration:present <1 month Context:non-smoker; no drug alcohol withdrawal Associated Symptoms:no frequent coughing; no feeling of fullness/mass in throatNotes:Symptoms are persistent back on PPI with occ lower esophageal dysphagia, stool was heme positive in Fe, had colonoscopy and EGD on 01/09 which showed HH and colon polyps. Symptoms well controlled on PPIHypertension F/UReported bypatient.Associated Symptoms:no dizziness; no lightheadedness; no chest pain; no shortness of breath; no palpitations; no edema; no calf pain with exertion Lifestyle:regular exercise; limiting/avoiding salt Medications:taking medications as directed; no side effects from medicationNotes:Anmol ating amlodipine well. Shakir Vanessa MD [address] [address], [place], [phone], [facility] 05/08/2024 11:35:06 05/26/2024 text/html COVID-19 Symptom s January 2020Reported bypatient.Notes:83 year old female Covid positive yesterday after developing sx of congestion, headache, runny nose. nausea, cough. Unsure if has fever. No chills. NO h/o COPD, heart disease. Pt. is on anticoagulation with warfarin. INR was under norm today. Pt. advised to increase dose by 0.5 tabs tonight and retest in 2 days. No h/o renal disease. Tatiana Mott PA-C [address] [address], [place], [phone], [facility] 05/26/2024 15:11:01 10/03/2024 text/html Medicare Annual Wellness VisitReported bypatient.Diet and Nutrition:healthy diet Fracture Risk:no history of fractures; no recent explained fracture; no sudden unexplained fractures; no previous musculoskeletal injuries Physical Activity:exercises on a regular basis Depression Risk:never feels sad, empty, or tearful; no significant changes in weight; no history of depression;sleep disturbances or insomnia Orientation:no disorientation to time; no disorientation to date; no disorientation to place Concentration and Memory:no decreased concentrating ability; no memory lapses or loss; does not forget words Speech/Motor difficulties:no speech difficulties; no difficulty with fine manipulative tasks; no difficulty writing/copying; no slowed reaction time; does not knock things over when trying to pick them up Hearing:loss of hearing: in both ears; wears hearing aids Vision:no vision problems Activities of Daily Living:able to bathe with limited or no assistance; able to contol urination and bowels; able to dress with limited or no assistance; able to feed self with limited or no assistance; able to get out of chair or bed with limited or no assistance; able to groom with limited or no assistance; able to toilet with limited or no assistance Instrumental Activities of Daily Living:able to do house work with limited or no assistance; able to grocery shop with limited or no assistance; able to manage medications with limited or no assistance; able to manage money with limited or no assistance; able to prepare meals with limited or no assistance; able to use the phone with limited or no assistance Falls Risk Assessment:no frequent falls while walking; no fall in the past year; no fall since last visit; no dizziness/vertigo Home Safety:no unsafe gregor hazzards; working smoke/CO detectors; use of seatbelts; has hand bars in the bathroom/shower;unsaf e stairs Shakir Vanessa MD [address], [phone], [facility] 10/28/2024 07:22:06 OBGyn Episode No OBEpisode recorded.
== END 2024-11-10 13:39 | disposition home or self-care (01) ==
LOC: HO.HAP 13:38
PROVIDERS: Visit Provider Internal Medicine
DX: Z46.1 Encounter for fitting and adjustment of hearing aid (principal)
CPT/HCPCS: V5267